=== PATIENT | male | born 1960 | race Hispanic/Latino ===

== ENCOUNTER 2017-03-01 20:58 | Observation (INO) | payer MEDICARE ==
[2017-03-01 21:08] VITALS: BMI 35.2
--- NOTE | 2017-03-01 21:32 | ED PDOC ---
Arrival/HPI <Bc Dill - Last Filed: 03/01/17 21:40> - General Historian: Patient - History of Present Illness Time/Duration: 1-3 hours Symptom Onset: Gradual Symptom Course: Unchanged Quality: Tightness Severity Level: Moderate Activities at Onset: Rest Context: Sitting <Tyler Centeno - Last Filed: 03/02/17 05:41> - General Chief Complaint: Chest Pain Time Seen by Provider: 03/01/17 21:00 - History of Present Illness Narrative History of Present Illness (Text): 03/01/17 21:28 This is a 56 yo male with past medical hx of GERD, sleep apnea, HLD , seizures, REM sleep disorder, presenting with chest pain x 2 hrs. Pain began while pt was sitting down watching tv. Has happened similar before, but this is worse. Came on gradually. Diffuse chest pain, no radiation. Feels like "tightness." Reports subjective fever and headache. Never had cardiac cath but reports normal nuclear stress test a few years ago. Constant pain. Didn't take any meds at home for it. Denies shortness of breath, abdominal pain, hematuria, blood in stool. PMH: sleep apnea , seizures, HLD, gerd PSH: nasal sx for sleep apnea Allergies: NSAIDS FH: Father - [place] - - age 88 Social hx : denies smoking, drinking, drug use. Does not work. (Tyler Centeno) Past Medical History - Provider Review Nursing Documentation Reviewed: Yes - Travel History Have you recently traveled outside [place] w/in the past 3 mons?: No - Infectious Disease Hx of Infectious Diseases: None - Tetanus Immunization Tetanus Immunization: Up to Date - Cardiac Hx Cardiac Disorders: No Hx Pacemaker: No - Pulmonary Hx Respiratory Disorders: No Hx Asthma: Yes Hx Bronchitis: No Hx Chronic Obstructive Pulmonary Disease (COPD): No Hx Emphysema: No Hx Pneumonia: No Hx Respiratory Aspiration: No Hx Respiratory Tract Infection: No Hx Sleep Apnea: Yes Hx Tuberculosis: No - Neurological Hx Paralysis: No - HEENT Hx HEENT Disorder: Yes Hx Blind: No Hx Cataracts: No Hx Deafness: No Hx Difficulty Chewing: No Hx Epistaxis: No Hx Glaucoma: No Hx Macular Degeneration: No Other/Comment: Inner ear vestibular disfunction - Renal Hx Renal Disorder: No Hx Dialysis: No Hx Kidney Stones: No Hx Neurogenic Bladder: No Hx Pyelonephritis: No Hx Renal Cancer: No Hx Renal Failure: No - Endocrine/Metabolic Hx Endocrine Disorders: No Hx Adrenal Cancer: No Hx Diabetes Insipidus: No Hx Diabetes Mellitus Type 1: No Hx Diabetes Mellitus Type 2: No Hx Hyperthyroidism: No Hx Hypothyroidism: No Hx Systemic Lupus Erythematosus: No - Hematological/Oncological Hx Blood Transfusions: No Hx Blood Transfusion Reaction: No - Integumentary Hx Dermatological Disorder: No Hx Basal Cell Carcinoma: No Hx Eczema: No Hx Melanoma: No Hx Psoriasis: No Hx Squamous Cell Carcinoma: No - Musculoskeletal/Rheumatological Hx Musculoskeletal Disorders: Yes - Gastrointestinal Hx Gastrointestinal Disorders: Yes Hx Colostomy: No Hx Crohn's Disease: No Hx Diverticulitis: No Hx Gall Bladder Disease: No Hx Gastroesophageal Reflux: Yes Hx Gastrointestinal Ulcer: No Hx Ileostomy: No Hx Liver Failure: No Hx Pancreatitis: No HX Swallowing Problems: No - Genitourinary/Gynecological Hx Hematuria: No Hx Incontinence: No Hx Prostate Problems: No Hx Sexually Transmitted Diseases: No Hx Urinary Tract Infection: No Other/Comment: L testicular surgery; staph infection s/p surgery - Psychiatric Hx Anxiety: Yes Hx Depression: Yes Hx Emotional Abuse: No Hx Physical Abuse: No Hx Substance Use: No Other/Comment: OCD - Surgical History Other/Comment: L testicular surgery. Nasal surgery for sleep apnea - Anesthesia Hx Anesthesia: Yes Hx Anesthesia Reactions: No Hx Malignant Hyperthermia: No - Suicidal Assessment Feels Threatened In Home Enviroment: No <Tyler Centeno - Last Filed: 03/02/17 05:41> Family/Social History - Physician Review Nursing Documentation Reviewed: Yes Family/Social History: CAD/OH Smoking Status: Never Smoked Hx Alcohol Use: No Hx Substance Use: No Hx Substance Use Treatment: No <Tyler Centeno - Last Filed: 03/02/17 05:41> Allergies/Home Meds <Bc Dill - Last Filed: 03/01/17 21:40> <Tyler Centeno - Last Filed: 03/02/17 05:41> Allergies/Adverse Reactions: Allergies ibuprofen [From Motrin] Allergy (Verified 03/01/17 21:09) RASH Penicillins Allergy (Verified 03/01/17 21:09) SWELLING amoxapine Adverse Reaction (Verified 03/01/17 21:09) ANAPHYLAXIS Home Medications: Home Meds Medication Instructions Recorded Confirmed Clonazepam [Klonopin] 1 tab PO HS 03/01/17 03/01/17 Fluoxetine HCl [Prozac] 2 cap PO DAILY 03/01/17 03/01/17 Fluticasone/Vilanterol [Breo 1 puff IH DAILY 03/01/17 03/01/17 Ellipta 200-25 Mcg INH] Gabapentin [Neurontin] 1 tab PO BID 03/01/17 03/01/17 Lubiprostone [Amitiza] 1 tab PO BID 03/01/17 03/01/17 Montelukast [Singulair] 1 tab PO HS 03/01/17 03/01/17 Multivit-Min/FA/Lycopen/Lutein 1 tab PO DAILY 03/01/17 03/01/17 [Men 50 Plus Multivitamin Tab] Xrpoc-3-Lbea Ethyl Esters 1 GM 4 cap PO DAILY 03/01/17 03/01/17 [Lovaza] Ranitidine HCl [Zantac] 1 tab PO BID 03/01/17 03/01/17 clomiPRAMINE [Anafranil] 50 mg PO HS 03/01/17 03/01/17 clonazePAM [Klonopin] 1 tab PO DAILY 03/01/17 03/01/17 levETIRAcetam [Keppra] 1 tab PO BID 03/01/17 03/01/17 Review of Systems - Review of Systems Constitutional: Fevers Eyes: absent: Vision Changes, Photophobia ENT: absent: Hearing Changes, Tinnitus Respiratory: absent: SOB, Cough Cardiovascular: Chest Pain. absent: Palpitations Gastrointestinal: absent: Abdominal Pain, Stool Changes Genitourinary Male: absent: Dysuria, Frequency Musculoskeletal: absent: Arthralgias, Back Pain Skin: absent: Rash, Pruritis Neurological: Headache. absent: Dizziness Endocrine: absent: Diaphoresis, Polyuria Hemo/Lymphatic: absent: Adenopathy, Easy Bleeding Psychiatric: absent: Anxiety, Depression <Tyler Centeno - Last Filed: 03/02/17 05:41> Physical Exam Vital Signs Reviewed: Yes Appearance: Positive for: Uncomfortable Mental Status: Positive for: Alert and Oriented X 3 - Systems Exam Head: Present: Atraumatic, Normocephalic Pupils: Present: PERRL Extroacular Muscles: Present: EOMI Mouth: Present: Moist Mucous Membranes Neck: Present: Normal Range of Motion. No: Meningeal Signs Respiratory/Chest: Present: Clear to Auscultation. No: Respiratory Distress Cardiovascular: Present: Normal S1, S2, Tachycardic Abdomen: Present: Normal Bowel Sounds. No: Tenderness, Peritoneal Signs Upper Extremity: Present: Normal Inspection. No: Cyanosis, Edema Lower Extremity: Present: Normal Inspection. No: Edema Neurological: Present: CN II-XII Intact, Speech Normal Skin: Present: Warm, Dry Psychiatric: Present: Alert, Oriented x 3, Normal Insight, Normal Concentration <Tyler Centeno - Last Filed: 03/02/17 05:41> Vital Signs Temp Pulse Pulse Pulse Resp BP BP 03/02/17 01:44 98.9 F 103 H 106 H 20 116/73 03/02/17 01:39 98.9 F 103 H 20 116/73 03/01/17 23:03 99.7 F H 117 H 18 104/69 03/01/17 21:14 103.1 F H 03/01/17 21:10 124 H 142/112 H 03/01/17 21:09 99.3 F 127 H 18 142/112 H Pulse Ox 03/02/17 01:44 03/02/17 01:39 93 L 03/01/17 23:03 96 03/01/17 21:14 03/01/17 21:10 03/01/17 21:09 90 L Medical Decision Making - Lab Interpretations I have reviewed the lab results: Yes - EKG Interpretation Interpreted by ED Physician: Yes Type: 12 lead EKG <Bc Dill - Last Filed: 03/01/17 21:40> <Tyler Centeno - Last Filed: 03/02/17 05:41> ED Course and Treatment: Impression: Pt was seen and evaluated with medical aide. Pt, whose past medical history includes GERD, sleep apnea, hyperlipidemia, and seizures, presented for diffuse chest tightness with subjective fever and headache while at home watching TV. Aware and agree with HPI, clinical findings, plan, and management. Plan: -- EKG -- Chest X-ray -- Labs, VBG, troponin, blood cultures -- Rapid influenza -- UA, urine cultures -- Plavix -- Reassess and disposition (Bc Dill) - Lab Interpretations Lab Results: 03/01/17 21:25 03/01/17 21:25 Lab Results 03/01/17 22:45: Urine Opiates Screen Negative, Urine Methadone Screen Negative, Ur Barbiturates Screen Negative, Ur Phencyclidine Scrn Negative, Ur Amphetamines Screen Negative, U Benzodiazepines Scrn Negative, U Oth Cocaine Metabols Negative, U Cannabinoids Screen Negative 03/01/17 22:40: Urine Color Yellow, Urine Appearance Clear, Urine pH 7.5, Ur Specific [place] 1.010, Urine Protein Negative, Urine Glucose (UA) Negative, Urine Ketones 15 H, Urine Blood Small H, Urine Nitrate Negative, Urine Bilirubin Negative, Urine Urobilinogen 0.2, Ur Leukocyte Esterase Negative, Urine RBC 5 - 10, Urine WBC 0 - 2, Ur Epithelial Cells 0 - 2, Urine Bacteria Rare 03/01/17 21:45: Influenza Typ A,B (EIA) Negative for flu a/b 03/01/17 21:25: pO2 73 H, VBG pH 7.45 H, VBG pCO2 41.0, VBG HCO3 28.5 H, VBG Total CO2 29.8 H, VBG O2 Sat (Calc) 97.0 H, VBG Base Excess 4.1 H, VBG Potassium 3.8, Sodium 134.0, Chloride 98.0, Glucose 134 H, Lactate 1.0, FiO2 21.0, Venous Blood Potassium 3.8 03/01/17 21:25: Sodium 134, Chloride 97 L, Potassium 3.8, Carbon Dioxide 29, Anion Gap 12, BUN 10, Creatinine 0.9, Est GFR ( Amer) > 60, Est GFR (Non- Af Amer) > 60, Random Glucose 130 H, Calcium 9.1, Total Bilirubin 1.1, AST 34, ALT 44, Alkaline Phosphatase 91, Troponin I < 0.01, Total Protein 7.6, Albumin 4.3, Globulin 3.3, Albumin/Globulin Ratio 1.3 03/01/17 21:25: WBC 7.8 D, RBC 4.33, Hgb 13.7 L, Hct 39.6 L, MCV 91.5, MCH 31.6 , MCHC 34.6, RDW 13.1, Plt Count 183, MPV 9.2, Gran % 82.4 H, Lymph % (Auto) 9.2 L, [place] % (Auto) 7.9 H, Eos % (Auto) 0.4 L, Baso % (Auto) 0.1, Gran # 6.45, Lymph # 0.7 L, [place] # 0.6, Eos # 0.0, Baso # 0.01 - RAD Interpretation Radiology Orders: 03/01/17 21:25 CXR [CHEST PORTABLE] [RAD] Stat - Medication Orders Current Medication Orders: Acetaminophen (Tylenol 325mg Tab) 650 mg PO Q4H PRN PRN Reason: Fever >100.5 F Last Admin: 03/02/17 04:56 Dose: 650 mg MAR Pain/Vitals Document 03/02/17 04:56 CO (Rec: 03/02/17 04:57 CO [id number]) Pain Reassessment Is This A Pain ReAssessment? No Presence of Pain Presence of Pain Yes Location Pain Location Body [employer]ing [employer] Discontinued Medications Acetaminophen (Tylenol 325mg Tab) 650 mg PO STAT STA Stop: 03/01/17 21:50 Last Admin: 03/01/17 21:21 Dose: 650 mg Clopidogrel Bisulfate (Plavix) 300 mg PO STAT STA Stop: 03/01/17 21:36 Last Admin: 03/01/17 21:50 Dose: 300 mg Levofloxacin/Dextrose (Levaquin 750mg) 750 mg in 150 mls @ 100 mls/hr IVPB STAT STA PRN Reason: Protocol Stop: 03/02/17 01:44 Last Admin: 03/02/17 00:24 Dose: 100 mls/hr eMAR Start Stop Document 03/02/17 00:24 CNR (Rec: 03/02/17 00:25 CNR [id number]) Intravenous Solution Start Date 03/02/17 Start Time 00:25 Metoclopramide HCl (Reglan) 10 mg IVP STAT STA Stop: 03/01/17 23:06 Last Admin: 03/01/17 23:18 Dose: 10 mg IVP Administration Document 03/01/17 23:18 CNR (Rec: 03/01/17 23:19 CNR [id number]) Charges for Administration # of IVP Administrations 1 Morphine Sulfate (Morphine) 2 mg IVP STAT STA Stop: 03/02/17 01:15 Last Admin: 03/02/17 01:26 Dose: 2 mg MAR Pain Assessment Document 03/02/17 01:26 CNR (Rec: 03/02/17 01:27 CNR [id number]) Pain Reassessment Is this a pain reassessment? Yes IVP Administration Document 03/02/17 01:26 CNR (Rec: 03/02/17 01:27 CNR [id number]) Charges for Administration # of IVP Administrations 1 Disposition/Present on Arrival <Bc Dill - Last Filed: 03/01/17 21:40> - Present on Arrival Any Indicators Present on Arrival: No History of DVT/PE: No History of Uncontrolled Diabetes: No Urinary Catheter: No History of Decub. Ulcer: No History Surgical Site Infection Following: None - Disposition Have Diagnosis and Disposition been Completed?: Yes Disposition Time: 01:00 <Tyler Centeno - Last Filed: 03/02/17 05:41> - Disposition Diagnosis: Chest pain Disposition: HOSPITALIZED Condition: GUARDED
[2017-03-01 21:38] LABS: VENOUS BLOOD GAS BASE EXCESS 4.1 mmol/L (0.0-2.0); VENOUS BLOOD PH 7.45 (7.32-7.43)
[2017-03-01 21:46] LABS: ALB/GLOB RATIO 1.3 (1.1-1.8); ALKALINE PHOSPHATASE 91 U/L (38-126); ALT/SGPT 44 U/L (7-56); AST/SGOT 34 U/L (17-59); BILIRUBIN,TOTAL 1.1 mg/dL (0.2-1.3); BLOOD UREA NITROGEN 10 mg/dL (7-21); CALCIUM 9.1 mg/dL (8.4-10.5); CARBON DIOXIDE 29 mmol/L (21-33); CHLORIDE 97 mmol/L (98-107); GFR AFRICAN-AMERICAN > 60; GLUCOSE,RANDOM 130 mg/dL (70-110); POTASSIUM 3.8 mmol/L (3.6-5.0); SODIUM 134 mmol/L (132-148); TOTAL PROTEIN 7.6 g/dL (5.8-8.3)
[2017-03-01 21:57] LABS: TROPONIN I < 0.01 ng/mL
[2017-03-01 22:09] LABS: BASO # 0.01 K/mm3 (0.0-2.0); BASO % 0.1 % (0.0-3.0); EOS % 0.4 % (1.5-5.0); GRAN # 6.45 (1.4-6.5); GRAN % 82.4 % (50.0-68.0); HEMATOCRIT 39.6 % (42.0-52.0); LYMPH # 0.7 (1.2-3.4); LYMPH % 9.2 % (22.0-35.0); MEAN CELL VOLUME 91.5 fl (80.0-105.0); MEAN CORPUSCULAR HEMOGLOBIN 31.6 pg (25.0-35.0); MEAN CORPUSCULAR HGB CONC 34.6 g/dl (31.0-37.0); MEAN PLATELET VOLUME 9.2 fl (7.0-11.0); MONO # 0.6 (0.1-0.6); MONO % 7.9 % (1.0-6.0); RED CELL DISTRIBUTION WIDTH 13.1 % (11.5-14.5); WHITE BLOOD COUNT 7.8 10^3/ul (4.5-11.0)
[2017-03-01 23:20] LABS: PH,URINE 7.5 (4.7-8.0); URINE BILIRUBIN NEGATIVE (NEGATIVE); URINE BLOOD SMALL (NEGATIVE); URINE GLUCOSE (UA) NEGATIVE (NEGATIVE); URINE KETONE 15 mg/dL (NEGATIVE); URINE LEUKOCYTE ESTERASE NEGATIVE Leu/uL (NEGATIVE); URINE PROTEIN NEGATIVE mg/dL (<30 mg/dL); URINE UROBILINOGEN 0.2 E.U./dL (<1 E.U./dL)
[2017-03-01 23:28] LABS: URINE APPEARANCE CLEAR (CLEAR); URINE COLOR YELLOW (YELLOW)
[2017-03-02] MEDS ORDERED: levoFLOXacin 750 mg in D5W 750 MG/150 ML BAG IVPB STA (00:15)
[2017-03-02 00:24] LABS: URINE EPITHELIAL CELLS 0 - 2 /hpf (0-5); URINE WBC 0 - 2 /hpf (0-6)
[2017-03-02 00:25] LABS: URINE BACTERIA RARE (NEG)
[2017-03-02] MEDS ORDERED: Morphine 2 mg/ml ISec IVP STA (01:14)
[2017-03-02 08:39] LABS: CHOLESTEROL 170 mg/dL (130-200)
[2017-03-02 08:53] LABS: TROPONIN I < 0.01 ng/mL
--- NOTE | 2017-03-02 09:18 | CARD ---
APPROVED REPORT EKG Measurement Heart [id number] <Conclusion> Sinus tachycardia NSSTW changes
--- NOTE | 2017-03-02 09:40 | CARD ---
APPROVED REPORT EKG Measurement Heart [id number] <Conclusion> Sinus tachycardia NSSTW changes No change except the rate is slower.
[2017-03-02] MEDS ORDERED: FLUOXETINE HCL PO SCH (10:00)
[2017-03-02] MEDS ORDERED: LUBIPROSTONE 24 MCG PO SCH (10:00)
[2017-03-02] MEDS ORDERED: LUBIPROSTONE PO SCH (10:00)
[2017-03-02] MEDS ORDERED: Non Formulary Medication (Ranitidine Hcl [Zantac] 1 TAB) PO SCH (10:00)
--- NOTE | 2017-03-02 10:15 | RAD ---
HISTORY: chest pain COMPARISON: 09/18/2016 FINDINGS: LUNGS: No active pulmonary disease. PLEURA: No significant pleural effusion identified, no pneumothorax apparent. CARDIOVASCULAR: Normal. OSSEOUS STRUCTURES: No significant abnormalities. VISUALIZED UPPER ABDOMEN: Normal. OTHER FINDINGS: None. IMPRESSION: No active disease.
[2017-03-02] MEDS: Omega-3-Acid Ethyl Esters 1 GM Cap PO SCH (10:21)
[2017-03-02] MEDS: LUBIPROSTONE 24 MCG PO SCH ×2 (10:23→17:36)
[2017-03-02] MEDS: Apap-Butalbital-Caffeine 325-50-40mg Tab PO PRN ×2 (10:43→17:39)
[2017-03-02] MEDS: Metoprolol Succinate 25 mg XL Tab PO SCH (10:44)
[2017-03-02 11:46] VITALS: RESP 20
--- NOTE | 2017-03-02 18:53 | CON ---
DATE: 03/02/2017 INDICATION: Chest pain. HISTORY OF PRESENT ILLNESS: This is a 56-year-old man admitted yesterday through the emergency room with chest pain described as a tight feeling across the chest intermittently. It became worse during the day and he went to the emergency room. There was no associated diaphoresis or shortness of breath, it did not radiate. There was no orthopnea, PND, syncope, presyncope, lightheadedness, dizziness, vertigo, palpitation, edema, or claudication. There was no fever, chills, cough, sputum production, hemoptysis, abdominal pain, nausea, vomiting, diarrhea, constipation, or melena. PAST MEDICAL HISTORY: Notable for nuclear stress test several years ago, which was unremarkable according to him. There is a history of hyperlipidemia, GERD, OCD, sleep apnea, and seizure disorder. There is no history of rheumatic fever, myocardial infarction, angina, arrhythmia, stroke, TIA, diabetes, or gout. MEDICATIONS: At the time of admission include Klonopin, Prozac, Breo Ellipta, gabapentin, Amitiza, Singulair, Lovaza, multivitamin, Zantac, Anafranil, and Keppra. ALLERGIES: HE NOTES ALLERGIES TO NSAIDS. SOCIAL HISTORY: He lives at home. He is unemployed. He is ambulatory. He does not smoke. He does not drink alcohol significantly. FAMILY HISTORY: Notable for heart disease and heart attack in his father. REVIEW OF SYSTEMS: A 10-point review of systems is otherwise unremarkable except as noted above. PHYSICAL EXAMINATION GENERAL: He is a well-developed male, lying in bed on Telemetry in no acute distress. VITAL SIGNS: He is in sinus rhythm and sinus tachycardia. He is afebrile currently, but he had a temperature of 103.1 initially, blood pressure 118/57, respirations 18-20, and O2 saturation 90-95% on nasal cannula. HEENT: Reveals no neck vein distention, thyromegaly, or carotid bruits. Mucous membranes moist. Conjunctivae pink. NECK: Supple. LUNGS: Bernal clear. HEART: Reveals normal first and second heart sounds without murmur, gallop, rub, or click. ABDOMEN: Soft. Bowel sounds present. No mass, organomegaly, tenderness, rebound or guarding. No CVA tenderness. No palpable abdominal aortic aneurysm. EXTREMITIES: Revealed no cyanosis, clubbing or edema. NEUROLOGIC: Awake, alert, and oriented. PSYCHIATRIC: Normal as to mood and affect. SKIN: Warm and dry. No rashes or cellulitis. LABORATORY AND IMAGING: A portable chest x-ray was done, it is not interpreted yet, to me it is an unremarkable study except that there is a possible infiltrate at the left base, possible pneumonia. No evidence of congestive heart failure. EKG revealed sinus tachycardia. No acute changes. White count is normal. Hemoglobin 13.7, hematocrit 39.6, and platelet count normal. Blood gases are noted. Electrolytes, BUN, creatinine and blood sugar are unremarkable. LFTs unremarkable. First troponin less than 0.01. Urinalysis is abnormal. Toxicology screen is unremarkable. Influenza is negative. ASSESSMENT: Michel Lockhart is a 56-year-old man with multiple medical problems as described, who presents with a tight chest discomfort without EKG changes or abnormality on his initial troponin. The symptoms have subsided. He has a history of a negative stress test, possibly a few years ago, but he is not sure of the date. PLAN: At this time, I will repeat his EKG and troponin level this morning. I will get a lipid profile. He will continue with his usual medication. I will get an echocardiogram. He can be out of bed. I will attempt to locate a prior stress test for review. If cardiac enzymes are negative and he has no further chest pain, we can arrange an outpatient nuclear stress test for him; if chest pain continues, we can do this on an inpatient basis. Given his fever and potential abnormal chest x-ray, he will get antibiotics. He has been cultured. Repeat chest x-ray or CT scan of the chest might be indicated. Aftab Grover MD [facility]
--- NOTE | 2017-03-02 19:23 | HP ---
HISTORY OF PRESENT ILLNESS: The patient is a 56-year-old, seen and examined. He states last night when he was watching TV, he has generalized body aches and pains, chest pain, chest pressure, and headache. Denies any fever or chills. No history of cough or congestion. No nausea or vomiting. No diarrhea. The chest pain was diffuse with no radiation to the neck or the arm, it did feel like tightness. PAST MEDICAL HISTORY: 1. He does have a history of sleep apnea. 2. Gastroesophageal reflux disease. 3. History of seizure disorder. 4. Obsessive-compulsive disorder. ALLERGIES: HE IS ALLERGIC TO IBUPROFEN, PENICILLIN, AND AMOXAPINE. MEDICATIONS AT HOME: He is on Anafranil 50 mg daily, Keppra 500 twice a day, and Klonopin 1 mg b.i.d.. He is on Amitiza, gabapentin 600 b.i.d., Pepcid 20 mg twice a day, Prozac 80 mg daily, Singulair 10 mg daily, and acetaminophen. SOCIAL HISTORY: Denies smoking, drinking, or alcohol use. He states he is disabled for the last 10 years. 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 REVIEW OF SYSTEMS: Significant for headache and generalized body aches and pain and some chest pressure. PHYSICAL EXAMINATION: VITAL SIGNS: He is afebrile, pulse 101, respirations 18, and blood pressure 118/57. LUNGS: Bilateral good airflow. No rhonchi or crackles. HEART: S1 and S2 audible. ABDOMEN: Soft and nontender. No rebound. No guarding. NEUROLOGIC: The patient is awake, alert, oriented, and communicative. Moves all extremities. EXTREMITIES: Bilateral legs, no edema. LABORATORY DATA: WBC is 7.8, hemoglobin is 13.7, hematocrit is 39.6, and platelets are 183. Chemistry; sodium 134, potassium 3.8, chloride 97, CO2 of 29, BUN 10, creatinine 0.9, and blood sugar of 130. Urinalysis shows small blood and ketones. Urine toxicology is negative. Serology is negative for influenza virus. ASSESSMENT: 1. Atypical chest pain. 2. Generalized body aches and pains. 3. Sinus tachycardia. 4. History of hypertension. 5. Obsessive-compulsive disorder. 6. Headache. 7. History of seizure disorder. PLAN: We will follow up cardiac enzyme. Check procalcitonin. Follow blood culture and urine culture and add small dose of metoprolol. If he remains stable, possible discharge in a.m. Dr. Grover to see the patient. Wero Barriga MD
[2017-03-02] MEDS ORDERED: CLOMIPRAMINE 50 MG PO SCH ×2 (22:00)
[2017-03-03 00:55] VITALS: O2SAT 94
[2017-03-03] MEDS: Metoprolol Succinate 25 mg XL Tab PO SCH (08:17)
--- NOTE | 2017-03-03 08:35 | CP.PCM.PN ---
Subjective - Date & Time of Evaluation Date of Evaluation: 03/03/17 Time of Evaluation: 07:00 - Subjective Subjective: Stable on 2R. No chest pain. He feels better now. V/S noted. RSR PE: Lungs: clear Cor.: S1S2 Abd.; soft Ext. no edema Neuro.; alert Labs noted: Trops neg x 3, Procal.: NL, TC = 170, LDL = 68 ECG S. Tachy, NSSTW changes, no change Objective - Vital Signs/Intake and Output Vital Signs (last 24 hours): Temp Pulse Resp BP Pulse Ox 97.8 F 101 H 20 120/72 94 L 03/03/17 06:00 03/03/17 08:17 03/03/17 06:00 03/03/17 08:17 03/03/17 06:00 Intake and Output: 03/03/17 03/03/17 06:59 18:59 Intake Total 120 Output Total 0 Balance 120 - Medications Medications: Current Medications Acetaminophen (Tylenol 325mg Tab) 650 mg PO Q4H PRN PRN Reason: Fever >100.5 F Last Admin: 03/02/17 10:24 Dose: 650 mg Acetaminophen/Butalbital/Caffeine (Fioricet) 1 tab PO Q4H PRN PRN Reason: headache Last Admin: 03/02/17 17:39 Dose: 1 tab Clonazepam (Klonopin) 1 mg PO DAILY [facility] PRN Reason: Protocol Last Admin: 03/02/17 10:23 Dose: 1 mg Famotidine (Pepcid) 20 mg PO BID [facility] Last Admin: 03/02/17 17:36 Dose: 20 mg Fluoxetine HCl (Prozac) 80 mg PO DAILY [facility] Last Admin: 03/02/17 10:22 Dose: 80 mg Gabapentin (Neurontin) 600 mg PO BID [facility] PRN Reason: Protocol Last Admin: 03/02/17 17:36 Dose: 600 mg Levetiracetam (Keppra) 500 mg PO BID [facility] Last Admin: 03/02/17 17:35 Dose: 500 mg Metoprolol Succinate (Toprol Xl) 25 mg PO BRK [facility] Last Admin: 03/03/17 08:17 Dose: 25 mg Montelukast Sodium (Singulair) 10 mg PO HS [facility] Last Admin: 11/26/17 21:16 Dose: 10 mg Clomipramine [ Anafranil] 50 Mg - Home Med 50 mg PO HS [facility] Last Admin: 03/02/17 21:17 Dose: 50 mg Lubiprostone [ Amitiza] 24mcg - Home Med 1 tab PO BID [facility] Last Admin: 03/02/17 17:36 Dose: 1 tab [id number] Ethyl Esters (Lovaza) 4 gm PO DAILY [facility] Last Admin: 03/02/17 10:21 Dose: 4 gm Assessment and Plan - Assessment and Plan (Free Text) Assessment: Chest Pain/Body Aches. Fever Seizure disorder OCD GERD RUI H/O HLD Plan: OOB ad ariel Echocardiogram Out-pt nuclear stress test to be arranged. As per Dr. Faye Upon D/C he will call if sxs recur.
--- NOTE | 2017-03-03 10:01 | PN ---
HISTORY OF PRESENT ILLNESS: This is a 56-year-old male who is had come into the hospital with complaints of chest pain. The patient was seen by Cardiology. He had cardiac enzymes x3 that were done which were negative. The patient has an echo that is pending. He was cleared for discharge by Cardiology for an outpatient stress. We will await echo to be done and then the patient is going to be discharged and followed up as an outpatient. The patient has no complaints of any headaches or dizziness. No chest pain. PHYSICAL EXAMINATION: VITAL SIGNS: Temperature is 97.8, pulse of 87, blood pressure 119/72, respirations 20. GENERAL: The patient is lying in bed, flat, comfortable. HEENT: No oral lesion. Anicteric sclerae. Moist mucosa. NECK: No JVD, adenopathy, or thyromegaly. CARDIOVASCULAR: S1 and S2, regular. No murmurs, rubs, or gallops. LUNGS: Clear to auscultation bilaterally. No wheeze, rales, or rhonchi. ABDOMEN: Bowel sounds are positive, soft, nontender and nondistended. EXTREMITIES: No cyanosis, clubbing or edema. LABORATORY DATA: His blood cultures x2 is negative. ASSESSMENT: 1. Chest pain, resolved. 2. Fever, resolved. 3. Seizure disorder. 4. Gastroesophageal reflux disease. 5. Obese with body mass index of 35. 6. PENICILLIN ALLERGY. 7. Obsessive-compulsive disorder. 8. Sleep apnea. PLAN: The patient is currently comfortable. He is on Klonopin. He is going to continue with his Keppra. The patient is on Neurontin for neuropathy. He was given one dose of Levaquin. His cultures have been negative. He has no fevers anymore. I suspect this may have been viral in origin. His chest x-ray that was done showed no signs of pneumonia or infiltrates. We will discharge the patient home as an outpatient for followup. He was advised to return to the hospital if his symptoms recur. CONDITION: Stable. ACTIVITIES: Increase as tolerated. John Faye MD
[2017-03-03] MEDS: Omega-3-Acid Ethyl Esters 1 GM Cap PO SCH (10:12)
[2017-03-03] MEDS: LUBIPROSTONE 24 MCG PO SCH (11:40)
[2017-03-03 12:21] VITALS: BP 108/77; PULSE 91; TEMP 97.9
--- NOTE | 2017-03-04 09:55 | CARD ---
APPROVED REPORT EXAM: Two-dimensional and M-mode echocardiogram with Doppler and color Doppler. INDICATION Chest Pain 2D DIMENSIONS IVSd1.0 (0.7-1.1cm)LVDd5.0 (3.9-5.9cm) PWd1.1 (0.7-1.1cm)LVDs3.4 (2.5-4.0cm) FS (%) 31.7 %LVEF (%)59.6 (>50%) M-Mode DIMENSIONS Aortic Root3.90 (2.2-3.7cm)Aortic Cusp Exc.2.10 (1.5-2.0cm) Aortic Valve AoV Peak Dugwqnpo006.0cm/Brandon Peak GR.8mmHg Mitral Valve MV E Pnoyrndx84.2cm/sMV A Jovgcfhl56.6cm/sE/A ratio0.9 TDI Lateral E' Peak V5.75cm/sMedial E' Peak V6.92cm/sE/Lateral E'10.8 E/Medial E'9.0 Pulmonary Valve PV Peak Bnnjbmwv23.4cm/sPV Peak Grad.3mmHg Tricuspid Valve TR Peak Rgltapnp147va/sRAP [id number] Peak Gr.28mmHg [id number]
== END 2017-03-03 13:42 | disposition home or self-care (01) ==
LOC: ED 20:58 → ERH 03-02 00:13 → 2RSO 03-02 02:14
PROVIDERS: ADMIT Internal Medicine Nephrology; ATTEND Internal Medicine Nephrology
DX: R07.89 Other chest pain (principal); R50.9 Fever, unspecified; G40.909 Epilepsy, unspecified, not intractable, without status epilepticus; G62.9 Polyneuropathy, unspecified; K21.9 Gastro-esophageal reflux disease without esophagitis; F42.9 Obsessive-compulsive disorder, unspecified; G47.33 Obstructive sleep apnea (adult) (pediatric); E78.5 Hyperlipidemia, unspecified; R51 Headache; R00.0 Tachycardia, unspecified; E66.9 Obesity, unspecified; Z68.35 Body mass index [BMI] 35.0-35.9, adult; Z88.0 Allergy status to penicillin; Z88.6 Allergy status to analgesic agent
CPT/HCPCS: 36415; 71010; 80053; 80061; 81001; 82803; 84145; 84484; 85025; 87040; 87086; 87804; 93005; 93306; 96374; 99285; G0378; G0480; J2270; J2765

== ENCOUNTER 2017-03-15 11:53 | Emergency (ER) | payer MEDICARE ==
[2017-03-15 11:53] VITALS: BMI 35.2
[2017-03-15 12:03] VITALS: TEMP 97.7
[2017-03-15 12:06] VITALS: RESP 18; O2SAT 98
[2017-03-15] MEDS ORDERED: TraMADol/Apap 37.5/325 mg Tab PO STA (12:18)
--- NOTE | 2017-03-15 12:18 | ED PDOC ---
Arrival/HPI - General Chief Complaint: Lower Extremity Problem/Injury Time Seen by Provider: 03/15/17 12:16 Historian: Patient - History of Present Illness Narrative History of Present Illness (Text): 03/15/17 12:18 This 56 yo male with past medical hx of GERD, Gout, sleep apnea, HLD , seizures , REM sleep disorder, presents to this ED c/o left knee pain and left lateral lower leg pain x 6 days. Patient denies trauma, skin rash, heavy lifting, recent travel, recent surgical procedure, weakness, paresthesias, or abnormal gait. Time/Duration: < week Quality: Aching Context: Home Past Medical History - Provider Review Nursing Documentation Reviewed: Yes - Infectious Disease Hx of Infectious Diseases: None - Tetanus Immunization Tetanus Immunization: Up to Date - Cardiac Hx Cardiac Disorders: No Hx Pacemaker: No - Pulmonary Hx Respiratory Disorders: No Hx Asthma: Yes Hx Bronchitis: No Hx Chronic Obstructive Pulmonary Disease (COPD): No Hx Emphysema: No Hx Pneumonia: No Hx Respiratory Aspiration: No Hx Respiratory Tract Infection: No Hx Sleep Apnea: Yes Hx Tuberculosis: No - Neurological Hx Paralysis: No - HEENT Hx HEENT Disorder: Yes Other/Comment: Inner ear vestibular disfunction - Renal Hx Renal Disorder: No - Endocrine/Metabolic Hx Endocrine Disorders: No - Hematological/Oncological Hx Blood Disorders: No - Integumentary Hx Dermatological Disorder: No - Musculoskeletal/Rheumatological Hx Musculoskeletal Disorders: Yes Hx Arthritis: Yes - Gastrointestinal Hx Gastrointestinal Disorders: Yes Hx Gastroesophageal Reflux: Yes - Genitourinary/Gynecological Hx Genitourinary Disorders: Yes Hx Hematuria: No Hx Incontinence: No Hx Prostate Problems: No Hx Sexually Transmitted Diseases: No Hx Urinary Tract Infection: No Other/Comment: L testicular surgery; staph infection s/p surgery - Psychiatric Hx Anxiety: Yes Hx Depression: Yes Hx Emotional Abuse: No Hx Physical Abuse: No Hx Substance Use: No Other/Comment: OCD - Surgical History Other/Comment: L testicular surgery. Nasal surgery for sleep apnea - Anesthesia Hx Anesthesia: Yes - Suicidal Assessment Feels Threatened In Home Enviroment: No Family/Social History - Physician Review Nursing Documentation Reviewed: Yes Family/Social History: Other (noncontributory) Smoking Status: Never Smoked Hx Alcohol Use: No Hx Substance Use: No Hx Substance Use Treatment: No Allergies/Home Meds Allergies/Adverse Reactions: Allergies ibuprofen [From Motrin] Allergy (Verified 03/15/17 11:55) RASH Penicillins Allergy (Verified 03/15/17 11:55) SWELLING amoxapine Adverse Reaction (Verified 03/15/17 11:55) ANAPHYLAXIS Home Medications: Home Meds Medication Instructions Recorded Confirmed Clonazepam [Klonopin] 1 tab PO HS 03/01/17 03/15/17 Fluoxetine HCl [Prozac] 2 cap PO DAILY 03/01/17 03/15/17 Fluticasone/Vilanterol [Breo 1 puff IH DAILY 03/01/17 03/15/17 Ellipta 200-25 Mcg INH] Gabapentin [Neurontin] 1 tab PO BID 03/01/17 03/15/17 Lubiprostone [Amitiza] 1 tab PO BID 03/01/17 03/15/17 Multivit-Min/FA/Lycopen/Lutein 1 tab PO DAILY 03/01/17 03/15/17 [Men 50 Plus Multivitamin Tab] [id number] Ethyl Esters 1 GM 4 cap PO DAILY 03/01/17 03/15/17 [Lovaza] Ranitidine HCl [Zantac] 1 tab PO BID 03/01/17 03/15/17 clomiPRAMINE [Anafranil] 50 mg PO HS 03/01/17 03/15/17 clonazePAM [Klonopin] 1 tab PO DAILY 03/01/17 03/15/17 levETIRAcetam [Keppra] 1 tab PO BID 03/01/17 03/15/17 Levocetirizine Dihydrochloride 1 tab PO DAILY 03/15/17 03/15/17 [Xyzal] Tamsulosin [Flomax] 1 cap PO DAILY 03/15/17 03/15/17 Review of Systems - Review of Systems Constitutional: Normal. absent: Fatigue, Weight Change, Fevers Eyes: Normal ENT: Normal Respiratory: Normal. absent: SOB, Cough Cardiovascular: Normal. absent: Chest Pain, Palpitations Gastrointestinal: Normal. absent: Abdominal Pain, Nausea, Vomiting Genitourinary Male: Normal Musculoskeletal: Other (left knee and left lower leg pain) Skin: Normal. absent: Rash, Pruritis, Skin Lesions, Abscess, Ulcer, Cellulitis Neurological: Normal Endocrine: Normal Hemo/Lymphatic: Normal Psychiatric: Normal Physical Exam Vital Signs Temp Pulse Resp BP Pulse Ox 03/15/17 13:16 93 H 18 125/79 98 03/15/17 12:05 97.7 F 102 H 18 127/86 98 03/15/17 11:57 97.7 F 102 H 16 127/86 96 Temperature: Afebrile Blood Pressure: Normal Pulse: Regular Respiratory Rate: Normal Appearance: Positive for: Well-Appearing, Non-Toxic, Comfortable Pain Distress: None Mental Status: Positive for: Alert and Oriented X 3 - Systems Exam Head: Present: Atraumatic, Normocephalic Pupils: Present: PERRL Extroacular Muscles: Present: EOMI Conjunctiva: Present: Normal Mouth: Present: Moist Mucous Membranes Neck: Present: Normal Range of Motion Respiratory/Chest: Present: Clear to Auscultation, Good Air Exchange. No: Respiratory Distress, Accessory Muscle Use, Wheezes, Retracting, Tender to Palpation Cardiovascular: Present: Regular Rate and Rhythm, Normal S1, S2. No: Murmurs Abdomen: No: Tenderness Upper Extremity: Present: Normal Inspection, Normal ROM, NORMAL PULSES Lower Extremity: Present: Edema (trace edema left lower leg), NORMAL PULSES, Normal ROM, Neurovascularly Intact, Capillary Refill < 2 s. No: CALF TENDERNESS , Temperature Abnormalties Neurological: Present: GCS=15, CN II-XII Intact, Speech Normal, Motor Func Grossly Intact, Normal Sensory Function, Normal Cerebellar Funct, Gait Normal Skin: Present: Warm, Dry, Normal Color. No: Rashes Psychiatric: Present: Alert, Oriented x 3, Normal Insight, Normal Concentration Medical Decision Making ED Course and Treatment: 03/15/17 13:25 Patient remained stable during the course of ED visit. Knee x-rays, and Left Lower Extremity Venous Doppler were negative. Physical exam was unremarkable except for left knee swelling and mild tender. Knee is able to flex at least 90 degrees. no septic knee joint, no surrounding erythema, ecchymosis, or skin lesion. Patient stated he has a pmh gout, and he is concern this could be an exacerbation. Patient requested medication for gout and inflammation. I recommended Colchicine, and Decadron. I reviewed with patient regarding the use of Decadron and risk for AVN, glaucoma, osteoporosis, dm. patient understood risk, but he still requested Decadron for inflammation. Cane was ordered. Patient also requested Muscle relaxer medication. Robaxin will be prescribed. Patient was instructed to return to emergency if symptoms worsen, and to avoid alcohol, nuts, prunes, beans, or any type of meat. Re-evaluation Time: 13:25 Reassessment Condition: Re-examined, Improved - RAD Interpretation Narrative RAD Interpretations (Text): 03/15/17 13:31 Knee x-rays: no acute fracture. normal soft tissue 03/15/17 13:32 Venous Doppler: No DVT as per US Radiology Orders: 03/15/17 12:16 DUPLEX LOWER EXTRM VEIN LEFT [US] Stat 03/15/17 12:17 KNEE WITH PATELLA LEFT 3 VIEW [RAD] Stat - Medication Orders Current Medication Orders: Discontinued Medications Tramadol/Acetaminophen (Ultracet 37.5/325 Mg) 1 tab PO STAT STA Stop: 03/15/17 12:19 Last Admin: 03/15/17 12:27 Dose: 1 tab MAR Pain Assessment Document 03/15/17 12:27 GMD (Rec: 03/15/17 12:27 GMD [id number]) Pain Reassessment Is this a pain reassessment? No Sleep Is patient sleeping during reassessment? No Presence of Pain Presence of Pain Yes Location Left, Right or Bilateral Left Upper or Lower Lower Pain Location Body Site Leg Disposition/Present on Arrival - Present on Arrival Any Indicators Present on Arrival: No History of DVT/PE: No History of Uncontrolled Diabetes: No Urinary Catheter: No History of Decub. Ulcer: No History Surgical Site Infection Following: None - Disposition Have Diagnosis and Disposition been Completed?: Yes Diagnosis: Knee pain, left, Swelling of knee joint, left, Gout attack Disposition: HOME/ ROUTINE Disposition Time: 13:32 Patient Plan: Discharge Patient Problems: Current Active Problems Problem Status Onset Gout attack Acute Knee pain, left Acute Swelling of knee joint, left Acute Condition: GOOD Discharge Instructions (ExitCare): Gout (ED), Swollen Knee Joint (ED), Knee Pain (ED) Additional Instructions: Call private doctor for follow up visit in 1-2 days. Take OTC Tylenol for pain as needed. Use cane. remove saw bandage at bedtime. Return to emergency if pain worsen. Call Dr. Moon to have knee recheck in 3-5 days Prescriptions: Methocarbamol [Robaxin-750] 750 mg PO TID #21 tab Referrals: Gary Moreno MD [Primary Care Provider] - Follow up with primary Ariel Moon DO [Staff Provider] - Follow up with primary Forms: [employer] (Welsh)
[2017-03-15 13:16] VITALS: BP 125/79; PULSE 93
--- NOTE | 2017-03-15 14:35 | RAD ---
PROCEDURE: Left Knee Radiographs. HISTORY: Pain. COMPARISON: None. FINDINGS: BONES: Normal. No fracture. JOINTS: Tiny posterior inferior patella osteophyte. JOINT EFFUSION: Small suprapatellar joint effusion. Joint spaces appear preserved OTHER FINDINGS: None. IMPRESSION: No evidence of acute displaced fracture or dislocation. Tiny posterior inferior patellar osteophyte. Small suprapatellar joint effusion.
--- NOTE | 2017-03-17 18:57 | US ---
PROCEDURE: Left lower extremity venous US HISTORY: Leg pain and swelling. Evaluate for DVT. PHYSICIAN(S): Joshua Roland MD. TECHNIQUE: Duplex sonography and color-flow Doppler with graded compression were used to evaluate the deep venous system of the left lower extremity. FINDINGS: The visualized deep venous system of the left lower extremity is sonographically normal and compressible. Normal wave forms and augmentation are seen. There is no sonographic evidence for deep venous thrombosis in the visualized segments of the left lower extremity. IMPRESSION: 1. No sonographic evidence for deep venous thrombosis in the visualized segments of the left lower extremity.
== END 2017-03-15 14:04 | disposition home or self-care (01) ==
LOC: ED 11:53
DX: M25.562 Pain in left knee (principal); M25.462 Effusion, left knee; M10.9 Gout, unspecified; E78.5 Hyperlipidemia, unspecified; Z88.0 Allergy status to penicillin
CPT/HCPCS: 73562; 93971; 96372; 99284; J1100

== ENCOUNTER 2017-08-03 17:48 | Inpatient (IN) | payer MEDICARE, OTHER ==
[2017-08-03 17:48] VITALS: BMI 35.2
[2017-08-03 18:20] VITALS: O2SAT 99
[2017-08-03 19:04] LABS: BASO # 0.02 K/mm3 (0.0-2.0); BASO % 0.3 % (0.0-3.0); EOS # 0.1 (0.0-0.7); EOS % 1.1 % (1.5-5.0); GRAN # 4.63 (1.4-6.5); HEMOGLOBIN 13.5 g/dL (14.0-18.0); LYMPH # 1.3 (1.2-3.4); LYMPH % 20.1 % (22.0-35.0); MEAN CELL VOLUME 88.1 fl (80.0-105.0); MEAN CORPUSCULAR HGB CONC 35.2 g/dl (31.0-37.0); MEAN PLATELET VOLUME 8.8 fl (7.0-11.0); MONO # 0.6 (0.1-0.6); MONO % 8.5 % (1.0-6.0); RBC 4.36 10^6/uL (3.5-6.1); RED CELL DISTRIBUTION WIDTH 13.2 % (11.5-14.5); WHITE BLOOD COUNT 6.6 10^3/ul (4.5-11.0)
[2017-08-03 19:09] LABS: URINE BILIRUBIN NEGATIVE (NEGATIVE); URINE BLOOD NEGATIVE (NEGATIVE); URINE GLUCOSE (UA) NEGATIVE (NEGATIVE); URINE LEUKOCYTE ESTERASE NEGATIVE Leu/uL (NEGATIVE); URINE PROTEIN NEGATIVE mg/dL (<30 mg/dL); URINE UROBILINOGEN 0.2 E.U./dL (<1 E.U./dL)
[2017-08-03 19:10] LABS: URINE APPEARANCE CLEAR (CLEAR); URINE COLOR YELLOW (YELLOW)
[2017-08-03 19:18] LABS: ACETAMINOPHEN < 10.0 ug/ml (10.0-20.0); SALICYLATE < 1 mg/dL (2.0-20.0)
[2017-08-03 19:19] LABS: ALB/GLOB RATIO 1.3 (1.1-1.8); ALBUMIN 4.5 g/dL (3.0-4.8); ALT/SGPT 36 U/L (7-56); AST/SGOT 29 U/L (17-59); BLOOD UREA NITROGEN 11 mg/dL (7-21); CALCIUM 9.2 mg/dL (8.4-10.5); GFR AFRICAN-AMERICAN > 60; GFR NON-AFRICAN AMERICAN > 60
[2017-08-03 19:28] LABS: BENZODIAZEPINES, UR NEGATIVE (NEGATIVE)
[2017-08-03 19:50] LABS: BARBITURATES, UR NEGATIVE (NEGATIVE); OPIATES, UR NEGATIVE (NEGATIVE); PHENCYCLIDINE, UR NEGATIVE (NEGATIVE)
--- NOTE | 2017-08-03 21:36 | ED PDOC ---
Arrival/HPI - General Historian: Patient - General Chief Complaint: Psychiatric Evaluation Time Seen by Provider: 08/03/17 18:24 - History of Present Illness Narrative History of Present Illness (Text): 08/03/17 21:30 57-year-old male with a history of OCD presents today with anxiety and depression. Patient denies suicidal or homicidal ideations. Patient states he has been obsessed with potholes lately. Patient states he is concerned that he could've possibly had someone yesterday because he felt a bump in the car when he was driving. Patient states he went multiple times around the block trying to see if there was anybody laying in the street. Patient states he called the police twice asking if there was any reports of head and runs. Patient denies headache dizziness or weakness. Denies chest pain or shortness of breath. Denies abdominal pain. (Britt Marc) Past Medical History - Provider Review Nursing Documentation Reviewed: Yes - Travel History Have you recently traveled outside [place] w/in the past 3 mons?: No - Infectious Disease Hx of Infectious Diseases: None - Tetanus Immunization Tetanus Immunization: Up to Date - Cardiac Hx Cardiac Disorders: No Hx Pacemaker: No - Pulmonary Hx Respiratory Disorders: No Hx Asthma: Yes Hx Bronchitis: No Hx Chronic Obstructive Pulmonary Disease (COPD): No Hx Emphysema: No Hx Pneumonia: No Hx Respiratory Aspiration: No Hx Respiratory Tract Infection: No Hx Sleep Apnea: Yes Hx Tuberculosis: No - Neurological Hx Paralysis: No - HEENT Hx HEENT Disorder: Yes Other/Comment: Inner ear vestibular disfunction - Renal Hx Renal Disorder: No - Endocrine/Metabolic Hx Endocrine Disorders: No - Hematological/Oncological Hx Blood Disorders: No - Integumentary Hx Dermatological Disorder: No - Musculoskeletal/Rheumatological Hx Musculoskeletal Disorders: Yes Hx Arthritis: Yes - Gastrointestinal Hx Gastrointestinal Disorders: Yes Hx Gastroesophageal Reflux: Yes - Genitourinary/Gynecological Hx Genitourinary Disorders: Yes Hx Hematuria: No Hx Incontinence: No Hx Prostate Problems: No Hx Sexually Transmitted Diseases: No Hx Urinary Tract Infection: No Other/Comment: L testicular surgery; staph infection s/p surgery - Psychiatric Hx Anxiety: Yes Hx Depression: Yes Hx Emotional Abuse: No Hx Physical Abuse: No Hx Substance Use: No Other/Comment: OCD - Surgical History Other/Comment: L testicular surgery. Nasal surgery for sleep apnea - Anesthesia Hx Anesthesia: Yes - Suicidal Assessment Feels Threatened In Home Enviroment: No Family/Social History - Physician Review Nursing Documentation Reviewed: Yes Family/Social History: Unknown Family HX Smoking Status: Never Smoked Hx Alcohol Use: No Hx Substance Use: No Hx Substance Use Treatment: No Allergies/Home Meds Allergies/Adverse Reactions: Allergies ibuprofen [From Motrin] Allergy (Verified 08/04/17 01:08) RASH Penicillins Allergy (Verified 08/04/17 01:08) SWELLING amoxapine Adverse Reaction (Verified 08/04/17 01:08) ANAPHYLAXIS Home Medications: Home Meds Medication Instructions Recorded Confirmed Clonazepam [Klonopin] 1 tab PO HS 03/01/17 08/04/17 Fluoxetine HCl [Prozac] 80 mg PO DAILY 03/01/17 08/04/17 Fluticasone/Vilanterol [Breo 1 puff IH DAILY 03/01/17 08/04/17 Ellipta 200-25 Mcg INH] Gabapentin [Neurontin] 300 mg PO TID 03/01/17 08/04/17 Lubiprostone [Amitiza] 1 tab PO BID 03/01/17 08/04/17 [id number] Ethyl Esters 1 GM 4 cap PO DAILY 03/01/17 08/04/17 [Lovaza] Ranitidine HCl [Zantac] 1 tab PO BID 03/01/17 08/04/17 clomiPRAMINE [Anafranil] 50 mg PO HS 03/01/17 08/04/17 clonazePAM [Klonopin] 1 tab PO DAILY 03/01/17 08/04/17 levETIRAcetam [Keppra] 750 mg PO BID 03/01/17 08/04/17 Levocetirizine Dihydrochloride 0.5 mg PO HS 03/15/17 08/04/17 [Xyzal] Tamsulosin [Flomax] 1 cap PO DAILY 03/15/17 08/04/17 Pilocarpine [Salagen] 5 mg PO BID 08/03/17 08/04/17 Risperidone [Risperdal] 1 mg PO HS 08/03/17 08/04/17 risperiDONE [RisperDAL] 0.5 mg PO DAILY 08/03/17 08/04/17 Review of Systems - Review of Systems Constitutional: absent: Fatigue, Fevers Respiratory: absent: SOB, Cough Cardiovascular: absent: Chest Pain, Palpitations Gastrointestinal: absent: Abdominal Pain, Constipation, Diarrhea, Nausea, Vomiting Genitourinary Male: absent: Dysuria, Frequency, Hematuria Musculoskeletal: absent: Arthralgias, Back Pain, Neck Pain Skin: absent: Rash, Pruritis Neurological: absent: Headache, Dizziness Psychiatric: Anxiety, Depression. absent: Suicidal Ideation Physical Exam Vital Signs Reviewed: Yes Temperature: Afebrile Blood Pressure: Normal Pulse: Regular Respiratory Rate: Normal Appearance: Positive for: Well-Appearing, Non-Toxic, Comfortable Pain Distress: None Mental Status: Positive for: Alert and Oriented X 3 - Systems Exam Head: Present: Atraumatic Mouth: Present: Moist Mucous Membranes Neck: Present: Normal Range of Motion Respiratory/Chest: Present: Clear to Auscultation Cardiovascular: Present: Regular Rate and Rhythm Abdomen: No: Tenderness, Rebound, Guarding Upper Extremity: Present: Normal ROM Lower Extremity: Present: Normal ROM Neurological: Present: GCS=15, Speech Normal Skin: Present: Warm, Dry, Normal Color. No: Rashes Psychiatric: Present: Alert, Oriented x 3, Anxious, Depressed Mood. No: Suicidal Ideation, Homicidal Ideation Vital Signs Temp Pulse Resp BP Pulse Ox 08/03/17 18:12 98.9 F 98 H 20 140/81 99 Medical Decision Making ED Course and Treatment: 08/03/17 22:06 Pt seen and evaluated by PES screener Werner, who discussed case with psychiatrist retail sales professional. Pt will be admitted to Behavioral health for OCD under Dr. Lovelace's service. Pt agreeable with plan. (Bc Dill) 08/03/17 21:32 Patient is nontoxic well-appearing in no distress vital signs are stable. CBC WNL CMP WNL Tylenol WNL Salicylate WNL Alcohol level WNL Urine drug screen wnl UA; wnl cxr: wnl ekg sinus tachycardia at 101b/m no st elevations pt is medically cleared for PES evaluation Patient was seen and evaluated by PES screener: werner case signed out to dr. dill pending PES evaluation, disposition. (Britt Marc) - Lab Interpretations Lab Results: 08/03/17 18:45 08/03/17 18:45 Lab Results 08/03/17 19:00: Urine Opiates Screen Negative, Urine Methadone Screen Negative, Ur Barbiturates Screen Negative, Ur Phencyclidine Scrn Negative, Ur Amphetamines Screen Negative, U Benzodiazepines Scrn Negative, U Oth Cocaine Metabols Negative, U Cannabinoids Screen Negative 08/03/17 19:00: Urine Color Yellow, Urine Appearance Clear, Urine pH 6.0, Ur Specific [place] 1.020, Urine Protein Negative, Urine Glucose (UA) Negative, Urine Ketones Negative, Urine Blood Negative, Urine Nitrate Negative, Urine Bilirubin Negative, Urine Urobilinogen 0.2, Ur Leukocyte Esterase Negative 08/03/17 18:45: Alcohol, Quantitative < 10 08/03/17 18:45: Salicylates < 1 L, Acetaminophen < 10.0 L 08/03/17 18:45: Sodium 142, Potassium 3.5 L, Chloride 101, Carbon Dioxide 29, Anion Gap 15, BUN 11, Creatinine 0.8, Est GFR ( Amer) > 60, Est GFR (Non- Af Amer) > 60, Random Glucose 95, Calcium 9.2, Total Bilirubin 0.6, AST 29, ALT 36, Alkaline Phosphatase 82, Total Protein 7.8, Albumin 4.5, Globulin 3.3, Albumin/Globulin Ratio 1.3 08/03/17 18:45: WBC 6.6, RBC 4.36, Hgb 13.5 L, Hct 38.4 L, MCV 88.1 D, MCH 31.0 , MCHC 35.2, RDW 13.2, Plt Count 237, MPV 8.8, Gran % 70.0 H, Lymph % (Auto) 20.1 L, Petroleum % (Auto) 8.5 H, Eos % (Auto) 1.1 L, Baso % (Auto) 0.3, Gran # 4.63 , Lymph # (Auto) 1.3, Petroleum # (Auto) 0.6, Eos # (Auto) 0.1, Baso # (Auto) 0.02 - RAD Interpretation Radiology Orders: 08/03/17 18:31 CHEST PORTABLE [RAD] Stat - Medication Orders Current Medication Orders: Acetaminophen (Tylenol 325mg Tab) 650 mg PO Q4H PRN PRN Reason: Pain, Mild (1-3) Al Hydrox/Mg Hydrox/Simethicone (Maalox Plus 30 Ml) 30 ml PO DAILY PRN PRN Reason: Upset Stomach Albuterol (Ventolin Hfa 90 Mcg/Actuation (8 G)) 2 puff IH [id number] PRN PRN Reason: Shortness of Breath Bupropion HCl (Wellbutrin) 75 mg PO DAILY SABA Clonazepam (Klonopin) 1 mg PO BID SABA PRN Reason: Protocol Clonazepam (Klonopin) 2 mg PO HS SABA Fluoxetine HCl (Prozac) 40 mg PO BID SABA Gabapentin (Neurontin) 600 mg PO TID SABA PRN Reason: Protocol Home Med (Home Med) 1 unit PO HS SABA Home Med (Home Med) 1 unit PO BID SABA Home Med (Home Med) 1 unit PO BID SABA Home Med (Home Med) 1 unit PO BID SABA Home Med (Home Med) 1 unit INH DAILY SABA Home Med (Home Med) 1 unit PO DAILY SABA Levetiracetam (Keppra) 750 mg PO BID [facility] Last Admin: 08/04/17 09:00 Dose: 750 mg Magnesium Hydroxide (Milk Of Magnesia) 30 ml PO DAILY PRN PRN Reason: Constipation Non-Formulary Medication (Clomipramine [Anafranil]) 100 mg PO HS SABA Risperidone (Risperdal Tab) 1 mg PO AMHS SABA PRN Reason: Protocol Tamsulosin HCl (Flomax) 0.4 mg PO QPM SABA Zaleplon (Sonata) 5 mg PO HS PRN PRN Reason: Insomnia Discontinued Medications Clonazepam (Klonopin) 1 mg PO DAILY SABA PRN Reason: Protocol Last Admin: 08/04/17 09:00 Dose: 1 mg Behavioural Document 08/04/17 09:00 RGO (Rec: 08/04/17 09:01 RGO [id number]) Maintenance Maintenance Dose Yes Clonazepam (Klonopin) 1 mg PO HS SABA Clonazepam (Klonopin) 1 mg PO STAT STA PRN Reason: Protocol Stop: 08/04/17 00:08 Last Admin: 08/04/17 00:18 Dose: 1 mg Behavioural Document 08/04/17 00:18 DCP (Rec: 08/04/17 00:18 DCP [id number]) Maintenance Maintenance Dose Yes Re-Assess: Reassess Psych Meds Document 08/04/17 01:18 DCP (Rec: 08/04/17 02:32 DCP [id number]) Reassess Psych Med Effective Fluoxetine HCl (Prozac) 20 mg PO DAILY [facility] Last Admin: 08/04/17 09:01 Dose: 20 mg Gabapentin (Neurontin) 300 mg PO TID SABA PRN Reason: Protocol Last Admin: 08/04/17 09:01 Dose: 300 mg Behavioural Document 08/04/17 09:01 RGO (Rec: 08/04/17 09:01 RGO [id number]) Maintenance Maintenance Dose Yes Gabapentin (Neurontin) 300 mg PO STAT STA PRN Reason: Protocol Stop: 08/04/17 00:08 Last Admin: 08/04/17 00:18 Dose: 300 mg Behavioural Document 08/04/17 00:18 DCP (Rec: 08/04/17 00:18 DCP [id number]) Maintenance Maintenance Dose Yes Re-Assess: Reassess Psych Meds Document 08/04/17 01:18 DCP (Rec: 08/04/17 02:32 DCP [id number]) Reassess Psych Med Effective Gabapentin (Neurontin) 300 mg PO TID SABA PRN Reason: Protocol Non-Formulary Medication (Clomipramine [Anafranil]) 50 mg PO HS SABA Risperidone (Risperdal Tab) 1 mg PO HS SABA PRN Reason: Protocol Risperidone (Risperdal Tab) 1 mg PO STAT STA PRN Reason: Protocol Stop: 08/04/17 00:08 Last Admin: 08/04/17 00:18 Dose: 1 mg Behavioural Document 08/04/17 00:18 DCP (Rec: 08/04/17 00:18 DCP [id number]) Maintenance Maintenance Dose Yes Re-Assess: Reassess Psych Meds Document 08/04/17 01:18 DCP (Rec: 08/04/17 02:32 DCP [id number]) Reassess Psych Med Effective Zaleplon (Sonata) 5 mg PO STAT STA Stop: 08/03/17 23:45 Last Admin: 08/04/17 00:19 Dose: 5 mg Disposition/Present on Arrival - Present on Arrival Any Indicators Present on Arrival: No History of DVT/PE: No History of Uncontrolled Diabetes: No Urinary Catheter: No History of Decub. Ulcer: No History Surgical Site Infection Following: None - Disposition Have Diagnosis and Disposition been Completed?: Yes Disposition Time: 22:00 Patient Plan: Admission - Disposition Diagnosis: OCD (obsessive compulsive disorder) Disposition: HOSPITALIZED Patient Problems: Current Active Problems Problem Status Onset Mood disorder Acute OCD (obsessive compulsive disorder) Acute Other stimulant use, unspecified with stimulant-induced anxiety disorder Acute Condition: FAIR
[2017-08-03] MEDS ORDERED: Alum-Mag Hydrox-Simethicone Susp (30 mL) PO PRN (23:44)
[2017-08-03] MEDS ORDERED: Magnesium Hydroxide Susp 30 ml UD PO PRN (23:44)
--- NOTE | 2017-08-04 01:54 | PCM.BM ---
<Jesus Hennessy - Last Filed: 08/04/17 01:51> Treatment Plan Problems - Problems identified on initial assessmt INEFFECTIVE COPING Date Initiated: 08/04/17 Time Initiated: 01:00 Assessment reference: NA Status: Active Priority: 1 ALTERED THOUGHT PROCESS Date Initiated: 08/04/17 Time Initiated: 01:00 Assessment reference: NA Status: Active Priority: 2 FEAR Date Initiated: 08/04/17 Time Initiated: 01:00 Assessment reference: NA Status: Active Priority: 3 SOCIAL ISOLATION Date Initiated: 08/04/17 Time Initiated: 13:00 Assessment reference: NA Status: Active Priority: 4 Treatment assets and liabiliti Patient Assests: adapts well, cooperative, educated, insightful, motivated, self -reliant, ADL independent, good support system, negotiates basic needs, cognitively intact Patient Liabilities: live alone, financial problems, medical problems - Milieu Protocol Maintain good personal hygiene: every other day Encourage regular showers, every shift Remind patient to perform daily oral care, every shift Assist patient to perform ADL's Maintain personal safety: every shift Educate patient to report safety concerns to staff, every shift Monitor environment for contraband/sharps Medication safety: Monitor for expected outcome, potential side effects: every shift, Assess barriers to learning: every shift, Assess readiness for medication education: every shift Family Contact Family involvement: Patient does not wish Family/SO involvement Discharge/Continuing Care - Education Needs Education Needs: Patient Medication, Patient Diagnosis/Disease Process, Patient Coping Skills, Patient Anger Management skills, Patient Placement options, Patient Community resources, Patient Nutrition, Patient Health Practices/Safety , Patient Aftercare Safety Plan - Discharge Discharge Criteria: Tolerates medication w/o severe side effects, Free of paranoid thoughts, Free of agitation, Normal sleep pattern, Ability to care for self <Christi Lovelace - Last Filed: 08/04/17 12:15> - Diagnosis (1) OCD (obsessive compulsive disorder) Status: Acute Interventions: 08/04/17 12:15 Psychoeducation Psychopharmacology/adjustment of medications as needed/ monitoring possible side effects Evaluate pt on daily basis Compliance with medications and follow up appointments Suicide and homicide risk assessment and prevention, coping strategies, safety plan Relapse prevention Reduction of symptoms Improve functional status Family involvement CBT, SSRI, exposure response prevention as outpatient Supportive therapy (2) Mood disorder Status: Acute Interventions: 08/04/17 12:16 Psychoeducation Psychopharmacology/adjustment of medications as needed/ monitoring possible side effects Evaluate pt on daily basis Compliance with medications and follow up appointments Suicide and homicide risk assessment and prevention Relapse prevention Reduction of symptoms Improve functional status Family involvement As outpatient: cognitive behavioral therapy (3) Other stimulant use, unspecified with stimulant-induced anxiety disorder Status: Acute Interventions: 08/04/17 12:16 avoid stimulants wellbutrin option discussed <Ruth Lima - Last Filed: 08/04/17 15:40> Family Contact - Outside Agency Agency 1 Care involvment: Information-sharing Agency contact name: [facility]. Toya Howell, lining caser Dr. Chucho Damon Care involvment: Information-sharing Agency contact name: Dr. Chucho Damon <Shamika Toth - Last Filed: 08/06/17 15:06>
[2017-08-04 08:26] LABS: GLUCOSE,FASTING 100 mg/dL (65-110); HDL CHOLESTEROL 53 mg/dL (29-60)
--- NOTE | 2017-08-04 08:31 | RAD ---
HISTORY: pes COMPARISON: 03/01/2017 FINDINGS: LUNGS: No active pulmonary disease. PLEURA: No significant pleural effusion identified, no pneumothorax apparent. CARDIOVASCULAR: No radiographic findings to suggest acute or significant cardiovascular disease. OSSEOUS STRUCTURES: No significant abnormalities. VISUALIZED UPPER ABDOMEN: Normal. OTHER FINDINGS: None. IMPRESSION: No active disease. No significant interval change compared to the prior examination(s).
[2017-08-04 08:37] LABS: LDL CHOLESTEROL 51 mg/dL (0-129)
[2017-08-04] MEDS ORDERED: PILOCARPINE 5 MG PO SCH (09:30)
[2017-08-04] MEDS ORDERED: AMITIZA 24 MCG PO SCH (09:30)
[2017-08-04] MEDS ORDERED: OMEGA ACID PO SCH (09:45)
[2017-08-04] MEDS ORDERED: BREO ELIPTA INH SCH (09:45)
[2017-08-04] MEDS ORDERED: ZANTAC 150 MG PO SCH (09:45)
[2017-08-04 10:27] VITALS: RESP 20
[2017-08-04] MEDS ORDERED: Albuterol HFA 90 mcg/actuation (8 g) IH PRN (12:09)
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
[2017-08-04] MEDS: AMITIZA 24 MCG PO SCH (17:10)
[2017-08-04] MEDS: PILOCARPINE 5 MG PO SCH (17:10)
[2017-08-04] MEDS: ZANTAC 150 MG PO SCH (17:10)
[2017-08-04] MEDS: ZOCOR 40 MG PO SCH (21:18)
[2017-08-04] MEDS: CLOMIPRAMINE 50 MG PO SCH (21:19)
[2017-08-04] MEDS ORDERED: CLOMIPRAMINE 50 MG PO SCH (22:00)
[2017-08-05] MEDS: ZANTAC 150 MG PO SCH ×2 (08:55→16:49)
[2017-08-05] MEDS: PILOCARPINE 5 MG PO SCH ×2 (08:56→16:50)
[2017-08-05] MEDS: BREO ELIPTA INH SCH (08:57)
[2017-08-05] MEDS: AMITIZA 24 MCG PO SCH ×2 (08:57→16:50)
[2017-08-05] MEDS: OMEGA ACID PO SCH (08:57)
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
[2017-08-05] MEDS: ZOCOR 40 MG PO SCH (21:06)
[2017-08-05] MEDS: CLOMIPRAMINE 50 MG PO SCH (21:06)
[2017-08-06] MEDS: AMITIZA 24 MCG PO SCH ×2 (08:58→18:02)
[2017-08-06] MEDS: PILOCARPINE 5 MG PO SCH ×2 (08:59→18:02)
[2017-08-06] MEDS: BREO ELIPTA INH SCH (09:01)
[2017-08-06] MEDS: ZANTAC 150 MG PO SCH ×2 (09:02→18:03)
[2017-08-06] MEDS: OMEGA ACID PO SCH (09:03)
[2017-08-06] MEDS: buPROPion 150 mg/24 Hours XL Tab PO SCH (09:06)
--- NOTE | 2017-08-06 16:13 | PCM.PYCHPN ---
Psychiatric Progress Note - Psychiatric Progress Note Patient seen today, length of contact: 30min Patient Chief Complaint: "I am doing little better, do you think I could go home within a few days?" Problems Identified/Issues Discussed: Suicide/ homicide prevention, past psychiatric h/o, current psychiatric symptoms , medical problems, risk/benefits and alternatives of medications, medications compliance, coping strategies, substance abuse h/o, relapse prevention, importance of follow up with psychiatrist and therapist, discharge plan. Medical Problems: knee problems, scheduled for a knee replacement surgery on August 14, 2017. TMJ syndrome. Diagnostic Results: 08/03/17 18:45 08/03/17 18:45 Lab Results 08/04/17 08:00: RPR Nonreactive 08/04/17 08:00: TSH 3rd Generation 3.79 08/04/17 08:00: Fasting Glucose 100, Triglycerides 66, Cholesterol 130, LDL Cholesterol Direct 51, HDL Cholesterol 53 08/03/17 19:00: Urine Opiates Screen Negative, Urine Methadone Screen Negative, Ur Barbiturates Screen Negative, Ur Phencyclidine Scrn Negative, Ur Amphetamines Screen Negative, U Benzodiazepines Scrn Negative, U Oth Cocaine Metabols Negative, U Cannabinoids Screen Negative 08/03/17 19:00: Urine Color Yellow, Urine Appearance Clear, Urine pH 6.0, Ur Specific [place] 1.020, Urine Protein Negative, Urine Glucose (UA) Negative, Urine Ketones Negative, Urine Blood Negative, Urine Nitrate Negative, Urine Bilirubin Negative, Urine Urobilinogen 0.2, Ur Leukocyte Esterase Negative 08/03/17 18:45: Alcohol, Quantitative < 10 08/03/17 18:45: Salicylates < 1 L, Acetaminophen < 10.0 L 08/03/17 18:45: Sodium 142, Potassium 3.5 L, Chloride 101, Carbon Dioxide 29, Anion Gap 15, BUN 11, Creatinine 0.8, Est GFR ( Amer) > 60, Est GFR (Non- Af Amer) > 60, Random Glucose 95, Calcium 9.2, Total Bilirubin 0.6, AST 29, ALT 36, Alkaline Phosphatase 82, Total Protein 7.8, Albumin 4.5, Globulin 3.3, Albumin/Globulin Ratio 1.3 08/03/17 18:45: WBC 6.6, RBC 4.36, Hgb 13.5 L, Hct 38.4 L, MCV 88.1 D, MCH 31.0 , MCHC 35.2, RDW 13.2, Plt Count 237, MPV 8.8, Gran % 70.0 H, Lymph % (Auto) 20.1 L, [place] % (Auto) 8.5 H, Eos % (Auto) 1.1 L, Baso % (Auto) 0.3, Gran # 4.63 , Lymph # (Auto) 1.3, [place] # (Auto) 0.6, Eos # (Auto) 0.1, Baso # (Auto) 0.02 Vital Signs Temp Pulse Resp BP Pulse Ox 08/05/17 06:54 97.3 F L 70 20 108/70 08/04/17 15:49 88 121/76 08/04/17 07:00 97.9 F 84 20 113/64 08/04/17 01:11 22 08/04/17 00:11 98.0 F 87 20 137/82 08/03/17 18:12 98.9 F 98 H 20 140/81 99 DSM 5 Symptoms Update: shortly patient is 57 year old male, history of mental illness, more than 15 psychiatric admissions, currently under care of Dr. 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 patient was seen and examined today at the hallway, patient presented with acceptable personal hygiene, less anxious, affect was more reactive, patient smiled back to this technical writer and editor a couple of times. pt said he had a good night sleep, reported feeling anxious, but with some improvement. as per staff pt is visible at the unit, no behavioral issues. Patient tolerates medications well no side effects observe, or reported, AIMS 0 , no EPS. as per collaterals by SW from pt's sister, patient family wants to sell a family house where pt lives, pt was stressed out about it. pt was not compliant with medications, was progressively worse for the past three months but unable to function for the past two weeks. see SW note for more detailed information. Impression: DSM 5 Diagnosis: OCD with psychosis r/o mdd Medication Change: No (adjusted yesterday) Medical Record Reviewed: Yes Consults ordered or reviewed: medical consult appreciated Mental Status Examination - Cognitive Function Orientation: Person, Place, Situation Memory: Intact Attention: Poor (some improvement) Concentration: Poor Association: WNL Fund of Knowledge: WNL - Mood Mood: Depressed, Anxious - Affect Affect: Flat - Speech Speech: Appropriate - Formal Thought Process Formal Thought Process: Other (ocd) - Suicidal Ideation Suicidal Ideation: No - Homicidal Ideation Homicidal Ideation: No Goal/Treatment Plan - Goal/Treatment Plan Need for Continued Stay: Remain at risks for inpatient hospitalization, Severe depression anxiety, Discharge may exacerbated symptoms, Severe functional impairment Progress Toward Problem(s) and Goals/Treatment Plan: Milieu, structure, supportive therapy Prozac 40mg po bid for depression, anxiety OCD Anafranil 100 mg at the bedtime for OCD Risperdal 1 mg at the morning time and 1 mg at bedtime Klonopin 2mg at the morning time and 2 mg at bedtime Keppra 750 mg twice a day, will be continued 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 Christy officially diagnosed heel with seizure disorder Zocor 40 mg at bedtime was continued by Dr. Sutton Zantac 150 milligrams twice a day will be continued Amitiza 24 g 1 at the morning time 1 at 1 PM will be continued Xyzal out 0.5 mg at bedtime will be continued Salagen 5 mg at the morning time and at 1 PM will be continued Gabapentin 600 mg 3 times a day Flomax 0.5 mg daily will be continued nhaler will be continued Ventolin inhaler as needed [place] 3 will be continued Wellbutrin ER 150mg po daily for adhd and depression, was increased yesterday patient was in agreement with the treatment plan. Medical consult appreciated, see medical team note for more detailed info consultation for discharge plan and social issues Family involvement Follow up on labs Will monitor closely Pt was educated about risk/benefits and alternatives of medications, coping strategies (safety plan, suicide prevention), relapse prevention, importance of follow up with psychiatrist and therapist, stay away from drugs/alcohol/smoking Estimated Date of D/C: 08/10/17
[2017-08-06] MEDS: ZOCOR 40 MG PO SCH (21:20)
[2017-08-06] MEDS: CLOMIPRAMINE 50 MG PO SCH (21:20)
[2017-08-07] MEDS: buPROPion 150 mg/24 Hours XL Tab PO SCH (08:09)
[2017-08-07] MEDS: OMEGA ACID PO SCH (08:14)
[2017-08-07] MEDS: BREO ELIPTA INH SCH (08:15)
[2017-08-07] MEDS: AMITIZA 24 MCG PO SCH ×2 (08:16→16:27)
[2017-08-07] MEDS: PILOCARPINE 5 MG PO SCH ×2 (08:17→16:28)
[2017-08-07] MEDS: ZANTAC 150 MG PO SCH ×2 (08:18→16:28)
--- NOTE | 2017-08-07 15:28 | PCM.PYCHPN ---
Psychiatric Progress Note - Psychiatric Progress Note Patient seen today, length of contact: 30min Patient Chief Complaint: "at times I still want to call police to ask if I hurt anyone while driving" Problems Identified/Issues Discussed: Suicide/ homicide prevention, past psychiatric h/o, current psychiatric symptoms , medical problems, risk/benefits and alternatives of medications, medications compliance, coping strategies, substance abuse h/o, relapse prevention, importance of follow up with psychiatrist and therapist, discharge plan. Medical Problems: knee problems, scheduled for a knee replacement surgery on August 14, 2017. TMJ syndrome. Diagnostic Results: 08/03/17 18:45 08/03/17 18:45 Lab Results 08/04/17 08:00: RPR Nonreactive 08/04/17 08:00: TSH 3rd Generation 3.79 08/04/17 08:00: Fasting Glucose 100, Triglycerides 66, Cholesterol 130, LDL Cholesterol Direct 51, HDL Cholesterol 53 08/03/17 19:00: Urine Opiates Screen Negative, Urine Methadone Screen Negative, Ur Barbiturates Screen Negative, Ur Phencyclidine Scrn Negative, Ur Amphetamines Screen Negative, U Benzodiazepines Scrn Negative, U Oth Cocaine Metabols Negative, U Cannabinoids Screen Negative 08/03/17 19:00: Urine Color Yellow, Urine Appearance Clear, Urine pH 6.0, Ur Specific [place] 1.020, Urine Protein Negative, Urine Glucose (UA) Negative, Urine Ketones Negative, Urine Blood Negative, Urine Nitrate Negative, Urine Bilirubin Negative, Urine Urobilinogen 0.2, Ur Leukocyte Esterase Negative 08/03/17 18:45: Alcohol, Quantitative < 10 08/03/17 18:45: Salicylates < 1 L, Acetaminophen < 10.0 L 08/03/17 18:45: Sodium 142, Potassium 3.5 L, Chloride 101, Carbon Dioxide 29, Anion Gap 15, BUN 11, Creatinine 0.8, Est GFR ( Amer) > 60, Est GFR (Non- Af Amer) > 60, Random Glucose 95, Calcium 9.2, Total Bilirubin 0.6, AST 29, ALT 36, Alkaline Phosphatase 82, Total Protein 7.8, Albumin 4.5, Globulin 3.3, Albumin/Globulin Ratio 1.3 08/03/17 18:45: WBC 6.6, RBC 4.36, Hgb 13.5 L, Hct 38.4 L, MCV 88.1 D, MCH 31.0 , MCHC 35.2, RDW 13.2, Plt Count 237, MPV 8.8, Gran % 70.0 H, Lymph % (Auto) 20.1 L, [place] % (Auto) 8.5 H, Eos % (Auto) 1.1 L, Baso % (Auto) 0.3, Gran # 4.63 , Lymph # (Auto) 1.3, [place] # (Auto) 0.6, Eos # (Auto) 0.1, Baso # (Auto) 0.02 Vital Signs Temp Pulse Resp BP Pulse Ox 08/05/17 06:54 97.3 F L 70 20 108/70 08/04/17 15:49 88 121/76 08/04/17 07:00 97.9 F 84 20 113/64 08/04/17 01:11 22 08/04/17 00:11 98.0 F 87 20 137/82 08/03/17 18:12 98.9 F 98 H 20 140/81 99 Temp Pulse Resp BP Pulse Ox 97.2 F L 79 20 93/58 L 99 08/07/17 07:12 08/07/17 07:12 08/07/17 07:12 08/07/17 07:12 08/03/17 18:12 DSM 5 Symptoms Update: shortly patient is 57 year old male, history of mental illness, more than 15 psychiatric admissions, currently under care of Dr. 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 patient was seen and examined today at the TV area, patient presented with acceptable personal hygiene, less anxious, affect was more reactive, patient smiled back to this clinical writer a couple of times, at the same time pt c/o anxiety about d/c, pt said he is stressed out about the discharge and "I will have a lot of changes in the house", pt's family wants to sell the house where pt lives. pt said at times he would feel that he hurt someone while driving but " It is little better, at times I want to call police and ask if I hurt anyone", this clinical writer asked if pt wants to increase risperdal, but pt refused, willing to increase Neurontin. pt said he had a good night sleep. pt's block and case maker came and visit pt today, will ask for the feedback. as per staff pt is visible at the unit, no behavioral issues. Patient tolerates medications well no side effects observe, or reported, AIMS 0 , no EPS. as per collaterals by SW from pt's sister, patient family wants to sell a family house where pt lives, pt was stressed out about it. pt was not compliant with medications, was progressively worse for the past three months but unable to function for the past two weeks. see SW note for more detailed information. Impression: DSM 5 Diagnosis: OCD with psychosis r/o mdd Medication Change: Yes (neurontin increased) Medical Record Reviewed: Yes Mental Status Examination - Cognitive Function Orientation: Person, Place, Situation Memory: Intact Attention: Poor (some improvement) Concentration: Poor (some improvement) Association: WNL Fund of Knowledge: WNL - Mood Mood: Depressed ("I M little better"), Anxious - Affect Affect: Flat - Speech Speech: Appropriate - Formal Thought Process Formal Thought Process: Other (ocd) - Suicidal Ideation Suicidal Ideation: No - Homicidal Ideation Homicidal Ideation: No Goal/Treatment Plan - Goal/Treatment Plan Need for Continued Stay: Remain at risks for inpatient hospitalization, Severe depression anxiety, Discharge may exacerbated symptoms, Severe functional impairment Progress Toward Problem(s) and Goals/Treatment Plan: Milieu, structure, supportive therapy Prozac 40mg po bid for depression, anxiety OCD Anafranil 100 mg at the bedtime for OCD Risperdal 1 mg at the morning time and 1 mg at bedtime Klonopin 2mg at the morning time and 2 mg at bedtime Keppra 750 mg twice a day, will be continued 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 Christy officially diagnosed heel with seizure disorder Zocor 40 mg at bedtime was continued by Dr. Sutton Zantac 150 milligrams twice a day will be continued Amitiza 24 g 1 at the morning time 1 at 1 PM will be continued Xyzal out 0.5 mg at bedtime will be continued Salagen 5 mg at the morning time and at 1 PM will be continued Gabapentin 600 mg 4 times a day Flomax 0.5 mg daily will be continued nhaler will be continued Ventolin inhaler as needed [place] 3 will be continued Wellbutrin ER 150mg po daily for adhd and depression, was increased yesterday patient was in agreement with the treatment plan. Medical consult appreciated, see medical team note for more detailed info SW consultation for discharge plan and social issues Family involvement Follow up on labs Will monitor closely Pt was educated about risk/benefits and alternatives of medications, coping strategies (safety plan, suicide prevention), relapse prevention, importance of follow up with psychiatrist and therapist, stay away from drugs/alcohol/smoking Estimated Date of D/C: 08/10/17
[2017-08-07] MEDS: CLOMIPRAMINE 50 MG PO SCH (21:15)
[2017-08-07] MEDS: ZOCOR 40 MG PO SCH (21:15)
[2017-08-08 07:12] VITALS: BP 128/86; PULSE 91; TEMP 98.5
[2017-08-08] MEDS: buPROPion 150 mg/24 Hours XL Tab PO SCH (07:51)
[2017-08-08] MEDS: OMEGA ACID PO SCH (07:54)
[2017-08-08] MEDS: ZANTAC 150 MG PO SCH (07:55)
[2017-08-08] MEDS: AMITIZA 24 MCG PO SCH (07:55)
[2017-08-08] MEDS: PILOCARPINE 5 MG PO SCH (07:56)
[2017-08-08] MEDS: BREO ELIPTA INH SCH (11:49)
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
== END 2017-08-08 14:00 | disposition home or self-care (01) | DRG 882 ==
LOC: ED 17:48 → ERH 22:32 → PSYC 23:50
PROVIDERS: ADMIT Psychiatry & Neurology Psychiatry; ATTEND Psychiatry & Neurology Psychiatry
DX: F42.9 Obsessive-compulsive disorder, unspecified (principal); F15.980 Other stimulant use, unspecified with stimulant-induced anxiety disorder; F32.9 Major depressive disorder, single episode, unspecified; M26.609 Unspecified temporomandibular joint disorder, unspecified side; G47.30 Sleep apnea, unspecified; K21.9 Gastro-esophageal reflux disease without esophagitis; G40.909 Epilepsy, unspecified, not intractable, without status epilepticus; N40.0 Benign prostatic hyperplasia without lower urinary tract symptoms; G62.9 Polyneuropathy, unspecified; Z88.0 Allergy status to penicillin

== ENCOUNTER 2018-03-09 14:13 | Emergency (ER) | payer MEDICARE ==
[2018-03-09 15:27] VITALS: TEMP 97.9; BMI 34.0
[2018-03-09 16:30] LABS: ACETAMINOPHEN < 10.0 ug/ml (10.0-20.0); SALICYLATE < 1 mg/dL (2.0-20.0)
[2018-03-09 16:31] LABS: BASO # 0.03 K/mm3 (0.0-2.0); BASO % 0.4 % (0.0-3.0); EOS # 0.1 (0.0-0.7); EOS % 0.8 % (1.5-5.0); GRAN % 75.2 % (50.0-68.0); HEMOGLOBIN 13.9 g/dL (14.0-18.0); LYMPH # 1.3 (1.2-3.4); LYMPH % 16.8 % (22.0-35.0); MEAN CELL VOLUME 88.4 fl (80.0-105.0); MEAN CORPUSCULAR HEMOGLOBIN 29.3 pg (25.0-35.0); MEAN CORPUSCULAR HGB CONC 33.2 g/dl (31.0-37.0); MEAN PLATELET VOLUME 9.1 fl (7.0-11.0); MONO # 0.5 (0.1-0.6); MONO % 6.8 % (1.0-6.0); RBC 4.74 10^6/uL (3.5-6.1); RED CELL DISTRIBUTION WIDTH 14.4 % (11.5-14.5)
[2018-03-09 16:32] LABS: ALB/GLOB RATIO 1.2 (1.1-1.8); ALBUMIN 4.5 g/dL (3.0-4.8); ALT/SGPT 27 U/L (7-56); AST/SGOT 40 U/L (17-59); BLOOD UREA NITROGEN 11 mg/dL (7-21); CALCIUM 9.3 mg/dL (8.4-10.5); GFR NON-AFRICAN AMERICAN > 60
[2018-03-09 16:36] LABS: URINE BILIRUBIN NEGATIVE (NEGATIVE); URINE BLOOD NEGATIVE (NEGATIVE); URINE GLUCOSE (UA) NEGATIVE (NEGATIVE); URINE LEUKOCYTE ESTERASE NEGATIVE Leu/uL (NEGATIVE); URINE PROTEIN TRACE mg/dL (<30 mg/dL)
[2018-03-09 16:37] LABS: URINE APPEARANCE CLEAR (CLEAR); URINE COLOR YELLOW (YELLOW)
[2018-03-09 16:41] LABS: TROPONIN I < 0.01 ng/mL
[2018-03-09 16:50] LABS: OPIATES, UR NEGATIVE (NEGATIVE)
[2018-03-09 16:56] LABS: BARBITURATES, UR NEGATIVE (NEGATIVE); BENZODIAZEPINES, UR POSITIVE (NEGATIVE); PHENCYCLIDINE, UR NEGATIVE (NEGATIVE)
[2018-03-09 17:00] LABS: URINE RBC 0 - 2 /hpf (0-2)
[2018-03-09 17:01] LABS: URINE BACTERIA TRACE (NEG); URINE CALCIUM OXALATE CRYSTALS SMALL /hpf; URINE HYALINE CAST 0 - 2 /hpf; URINE WBC 0 - 2 /hpf (0-6)
[2018-03-09 18:29] VITALS: BP 152/86; RESP 17; O2SAT 95
--- NOTE | 2018-03-09 18:44 | RAD ---
Date of service: 03/09/2018 HISTORY: pes eval COMPARISON: No prior. FINDINGS: LUNGS: No active pulmonary disease. PLEURA: No significant pleural effusion identified, no pneumothorax apparent. CARDIOVASCULAR: No atherosclerotic calcification present No radiographic findings to suggest acute or significant cardiovascular disease. OSSEOUS STRUCTURES: No significant abnormalities. VISUALIZED UPPER ABDOMEN: Normal. OTHER FINDINGS: None. IMPRESSION: No active disease. No significant interval change compared to the prior examination(s).
[2018-03-09 19:19] VITALS: PULSE 95
--- NOTE | 2018-03-09 19:22 | ED PDOC ---
Arrival/HPI - General Chief Complaint: Anxiety Time Seen by Provider: 03/09/18 14:27 Historian: Patient - History of Present Illness Narrative History of Present Illness (Text): 03/09/18 19:23 57-year-old male presents today complaining of increasing anxiety. Patient states he's been feeling more and more anxious due to family problems at home. Patient states he has been taking his medications as prescribed but they do not seem to be helping. He denies suicidal or homicidal ideation. He denies chest pain or shortness of breath. Patient states yesterday he had a little bit of acid reflux which has resolved. He denies nausea or vomiting. No headaches dizziness or weakness. No other complaints Past Medical History - Provider Review Nursing Documentation Reviewed: Yes - Travel History Have you recently traveled outside [place] w/in the past 3 mons?: No - Infectious Disease Hx of Infectious Diseases: None - Tetanus Immunization Tetanus Immunization: Up to Date - Cardiac Hx Cardiac Disorders: No Hx Hypertension: No - Pulmonary Hx Tuberculosis: No - Neurological HX Cerebrovascular Accident: No Hx Seizures: No - HEENT Hx HEENT Disorder: Yes Other/Comment: Inner ear vestibular disfunction - Renal Hx Renal Disorder: No - Endocrine/Metabolic Hx Endocrine Disorders: No - Hematological/Oncological Hx Cancer: No - Integumentary Hx Dermatological Disorder: No - Musculoskeletal/Rheumatological Hx Musculoskeletal Disorders: Yes Hx Arthritis: Yes - Gastrointestinal Hx Gastrointestinal Disorders: Yes Hx Gastroesophageal Reflux: Yes - Genitourinary/Gynecological Hx Sexually Transmitted Diseases: No - Psychiatric Hx Anxiety: Yes Hx Depression: Yes Hx Emotional Abuse: No Hx Physical Abuse: No Hx Substance Use: No Other/Comment: OCD - Surgical History Hx Orthopedic Surgery: Yes (Left knee 08/2017) Other/Comment: L testicular surgery. Nasal surgery for sleep apnea - Anesthesia Hx Anesthesia: Yes - Suicidal Assessment Feels Threatened In Home Enviroment: No Family/Social History - Physician Review Nursing Documentation Reviewed: Yes Family/Social History: Unknown Family HX Smoking Status: Never Smoked Hx Alcohol Use: No Hx Substance Use: No Hx Substance Use Treatment: No Allergies/Home Meds Allergies/Adverse Reactions: Allergies ibuprofen [From Motrin] Allergy (Verified 08/04/17 01:08) RASH Penicillins Allergy (Verified 08/04/17 01:08) SWELLING amoxapine Adverse Reaction (Verified 08/04/17 01:08) ANAPHYLAXIS Home Medications: Home Meds Medication Instructions Recorded Confirmed levETIRAcetam [Keppra] 750 mg PO BID 03/01/17 08/04/17 Tamsulosin [Flomax] 1 cap PO DAILY 03/15/17 08/04/17 Review of Systems - Review of Systems Constitutional: absent: Fatigue, Fevers Respiratory: absent: SOB, Cough Cardiovascular: absent: Chest Pain, Palpitations Gastrointestinal: absent: Abdominal Pain, Nausea, Vomiting Genitourinary Male: absent: Dysuria, Frequency, Hematuria Musculoskeletal: absent: Arthralgias Skin: absent: Rash, Pruritis Neurological: absent: Headache, Dizziness Psychiatric: absent: Anxiety, Depression Physical Exam Vital Signs Reviewed: Yes Vital Signs Temp Pulse Resp BP Pulse Ox 03/09/18 19:18 95 H 95 03/09/18 18:28 103 H 17 152/86 H 95 03/09/18 17:30 100 H 18 129/73 96 03/09/18 15:26 97.9 F 119 H 18 123/86 95 Temperature: Afebrile Blood Pressure: Normal Pulse: Tachycardic Respiratory Rate: Normal Appearance: Positive for: Well-Appearing, Non-Toxic, Comfortable Pain Distress: None Mental Status: Positive for: Alert and Oriented X 3 - Systems Exam Head: Present: Atraumatic Mouth: Present: Moist Mucous Membranes Respiratory/Chest: Present: Clear to Auscultation Cardiovascular: Present: Tachycardic. No: Murmurs Abdomen: No: Tenderness Upper Extremity: Present: Normal ROM Lower Extremity: Present: Normal ROM Neurological: Present: GCS=15, Speech Normal Skin: Present: Warm, Dry, Normal Color. No: Rashes Psychiatric: Present: Alert, Oriented x 3 Medical Decision Making ED Course and Treatment: 03/09/18 19:28 Patient is nontoxic well-appearing in no distress vital signs are stable. CBC WNL CMP WNL Tylenol WNL Salicylate WNL Alcohol level WNL Urine drug screen + benzos UA; wnl cxr: wnl ekg sinus tachycardia with PVCs at 113 bpm normal axis no ST elevations QTc 463 pt is medically cleared for PES evaluation Patient was seen and evaluated by PES screener: lorena Patient was cleared psychiatrically for discharge. Patient was given 0.25 of Xanax in the emergency room. Patient states his anxiety has decreased by half and he is feeling better and wants to go home. Patient was advised to return immediately if symptoms worsen persist or if new concerning symptoms develop Patient verbalizes understanding of discharge instructions and need for immediate followup. all aspects of this case were discussed the attending of record. Impression; anxiety take your medications as prescribed follow up with the psychiatrist within the next 2 days Return immediately if symptoms worsen persist or if new concerning symptoms develop - Lab Interpretations Lab Results: 03/09/18 16:12 03/09/18 16:12 Lab Results 03/09/18 16:27: Urine Opiates Screen Negative, Urine Methadone Screen Negative, Ur Barbiturates Screen Negative, Ur Phencyclidine Scrn Negative, Ur Amphetamines Screen Negative, U Benzodiazepines Scrn Positive H, U Oth Cocaine Metabols N egative, U Cannabinoids Screen Negative 03/09/18 16:27: Urine Color Yellow, Urine Appearance Clear, Urine pH 6.0, Ur Specific [place] >= 1.030, Urine Protein Trace H, Urine Glucose (UA) Negative, Urine Ketones Trace H, Urine Blood Negative, Urine Nitrate Negative, Urine Bilirubin Negative, Urine Urobilinogen 1.0 H, Ur Leukocyte Esterase Negative, Urine RBC 0 - 2, Urine WBC 0 - 2, Ur Epithelial Cells None, Calcium Oxalate Crystal Small, Urine Bacteria Trace, Hyaline Casts 0 - 2, Urine Other Mucus 03/09/18 16:12: Alcohol, Quantitative < 10 03/09/18 16:12: Salicylates < 1 L, Acetaminophen < 10.0 L 03/09/18 16:12: Sodium 142, Potassium 3.6, Chloride 105, Carbon Dioxide 29, Anion Gap 12, BUN 11, Creatinine 0.9, Est GFR ( Amer) > 60, Est GFR (Non- Af Amer) > 60, Random Glucose 137 H, Calcium 9.3, Total Bilirubin 0.9, AST 40, ALT 27, Alkaline Phosphatase 95, Lactate Dehydrogenase 529, Total Creatine Kinase 80, Troponin I < 0.01, Total Protein 8.3, Albumin 4.5, Globulin 3.7, Albumin/Globulin Ratio 1.2 03/09/18 16:12: WBC 8.0, RBC 4.74, Hgb 13.9 L D, Hct 41.9 L, MCV 88.4, MCH 29.3, MCHC 33.2, RDW 14.4, Plt Count 233, MPV 9.1, Gran % 75.2 H, Lymph % (Auto) 16.8 L, [place] % (Auto) 6.8 H, Eos % (Auto) 0.8 L, Baso % (Auto) 0.4, Gran # 6.00, Lymph # (Auto) 1.3, [place] # (Auto) 0.5, Eos # (Auto) 0.1, Baso # (Auto) 0.03 - RAD Interpretation Radiology Orders: 03/09/18 15:47 CHEST PORTABLE [RAD] Stat - Medication Orders Current Medication Orders: Discontinued Medications Alprazolam (Xanax) 0.25 mg PO STAT STA; Protocol Stop: 03/09/18 16:13 Last Admin: 03/09/18 17:30 Dose: 0.25 mg Disposition/Present on Arrival - Present on Arrival Any Indicators Present on Arrival: No History of DVT/PE: No History of Uncontrolled Diabetes: No Urinary Catheter: No History of Decub. Ulcer: No History Surgical Site Infection Following: None - Disposition Have Diagnosis and Disposition been Completed?: Yes Diagnosis: Anxiety Disposition: HOME/ ROUTINE Disposition Time: 19:00 Patient Plan: Discharge Patient Problems: Current Active Problems Problem Status Onset Anxiety Acute Condition: GOOD Discharge Instructions (ExitCare): Anxiety, Adult (DC) Additional Instructions: take your medications as prescribed follow up with the psychiatrist within the next 2 days Return immediately if symptoms worsen persist or if new concerning symptoms develop Referrals: Sheila Schmidt MD [Medical Doctor] - Follow up with primary [facility] [Outside] - Follow up with primary [facility] [Outside] - Follow up with primary
--- NOTE | 2018-03-09 20:20 | CARD ---
APPROVED REPORT Date of service: 03/09/2018 EKG Measurement Heart [id number] <Conclusion> Poor data quality, interpretation may be adversely affected Sinus tachycardia with occasional premature ventricular complexes Otherwise normal ECG
== END 2018-03-09 19:38 | disposition home or self-care (01) ==
LOC: ED 14:13
DX: F41.9 Anxiety disorder, unspecified (principal)
CPT/HCPCS: 71045; 80053; 81001; 82550; 83615; 84484; 85025; 90791; 93005; 99283; G0480

== ENCOUNTER 2018-03-18 12:03 | Inpatient (IN) | payer MEDICARE ==
[2018-03-18 12:04] VITALS: BMI 34.0
--- NOTE | 2018-03-18 12:43 | ED PDOC ---
Arrival/HPI - General Chief Complaint: Anxiety Time Seen by Provider: 03/18/18 12:12 Historian: Patient - History of Present Illness Narrative History of Present Illness (Text): 03/18/18 12:35 A 57 year old male, whose past medical history includes arthritis, anxiety, depression and OCD, presents to the emergency department complaining of worsening anxiety since this morning. Patient requests to speak with psychiatry. Patient denies any suicidal/homicidal ideation, or any other symptomatic complaints at this time. No PMD Past Medical History - Provider Review Nursing Documentation Reviewed: Yes - Infectious Disease Hx of Infectious Diseases: None - Tetanus Immunization Tetanus Immunization: Up to Date - Cardiac Hx Cardiac Disorders: No Hx Hypertension: No - Pulmonary Hx Tuberculosis: No - Neurological HX Cerebrovascular Accident: No Hx Seizures: No - HEENT Hx HEENT Disorder: Yes Other/Comment: Inner ear vestibular disfunction - Renal Hx Renal Disorder: No - Endocrine/Metabolic Hx Endocrine Disorders: No - Hematological/Oncological Hx Cancer: No - Integumentary Hx Dermatological Disorder: No - Musculoskeletal/Rheumatological Hx Musculoskeletal Disorders: Yes Hx Arthritis: Yes - Gastrointestinal Hx Gastrointestinal Disorders: Yes Hx Gastroesophageal Reflux: Yes - Genitourinary/Gynecological Hx Sexually Transmitted Diseases: No - Psychiatric Hx Anxiety: Yes Hx Depression: Yes Hx Emotional Abuse: No Hx Physical Abuse: No Hx Substance Use: No Other/Comment: OCD - Surgical History Hx Orthopedic Surgery: Yes (Left knee 08/2017) Other/Comment: L testicular surgery. Nasal surgery for sleep apnea - Anesthesia Hx Anesthesia: Yes - Suicidal Assessment Feels Threatened In Home Enviroment: No Family/Social History - Physician Review Nursing Documentation Reviewed: Yes Family/Social History: No Known Family HX Smoking Status: Never Smoked Hx Alcohol Use: No Hx Substance Use: No Hx Substance Use Treatment: No Allergies/Home Meds Allergies/Adverse Reactions: Allergies ibuprofen [From Motrin] Allergy (Verified 03/18/18 12:26) RASH Penicillins Allergy (Verified 03/18/18 12:26) SWELLING amoxapine Adverse Reaction (Verified 03/18/18 12:26) ANAPHYLAXIS Home Medications: Home Meds Medication Instructions Recorded Confirmed levETIRAcetam [Keppra] 750 mg PO BID 03/01/17 03/18/18 Tamsulosin [Flomax] 1 cap PO DAILY 03/15/17 03/18/18 Review of Systems - Review of Systems Constitutional: absent: Fevers, Night Sweats Eyes: absent: Vision Changes Respiratory: absent: SOB, Cough, Sputum, Wheezing Cardiovascular: absent: Chest Pain Gastrointestinal: absent: Abdominal Pain, Constipation, Diarrhea, Nausea, Vomiting Genitourinary Male: absent: Dysuria Neurological: absent: Headache, Dizziness, Focal Weakness, Gait Changes Psychiatric: Anxiety. absent: Suicidal Ideation Physical Exam Vital Signs Reviewed: Yes Vital Signs Temp Pulse Resp BP Pulse Ox 03/18/18 12:24 98.3 F 85 18 156/89 H 95 Temperature: Afebrile Blood Pressure: Normal Pulse: Regular Respiratory Rate: Normal Appearance: Positive for: Well-Appearing, Non-Toxic, Comfortable Pain Distress: None Mental Status: Positive for: Alert and Oriented X 3, other (anxious) - Systems Exam Head: Present: Atraumatic, Normocephalic Pupils: Present: PERRL Extroacular Muscles: Present: EOMI Conjunctiva: Present: Normal Mouth: Present: Moist Mucous Membranes Neck: Present: Normal Range of Motion Respiratory/Chest: Present: Clear to Auscultation, Good Air Exchange. No: Respiratory Distress, Accessory Muscle Use Cardiovascular: Present: Regular Rate and Rhythm, Normal S1, S2. No: Murmurs Abdomen: No: Tenderness, Distention, Peritoneal Signs Back: Present: Normal Inspection Upper Extremity: Present: Normal Inspection. No: Cyanosis, Edema Lower Extremity: Present: Normal Inspection. No: Edema Neurological: Present: GCS=15, CN II-XII Intact, Speech Normal Skin: Present: Warm, Dry, Normal Color. No: Rashes Psychiatric: Present: Alert, Oriented x 3, Anxious Medical Decision Making ED Course and Treatment: 03/18/18 12:37 Impression: 57 year old male with anxiety. Plan: -- EKG -- Reassess and disposition Prior Visits: Notes and results from previous visits were reviewed. Patient was last seen in [facility] emergency department on 03/09/2018 for increasing anxiety. Progress Notes: EKG: Ordered, reviewed, and independently interpreted the EKG. Rate : 103 BPM Rhythm : Sinus tachycardia. Interpretation : PVCs. Comparison : No change from prior EKG on 03/09/18. 03/18/18 14:27 Medically cleared and accepted by psych - Scribe Statement The provider has reviewed the documentation as recorded by the Fransisco Dominguez Provider Scribe Attestation: All medical record entries made by the Scribe were at my direction and personally dictated by me. I have reviewed the chart and agree that the record accurately reflects my personal performance of the history, physical exam, medical decision making, and the department course for this patient. I have also personally directed, reviewed, and agree with the discharge instructions and disposition. Disposition/Present on Arrival - Present on Arrival Any Indicators Present on Arrival: No History of DVT/PE: No History of Uncontrolled Diabetes: No Urinary Catheter: No History of Decub. Ulcer: No History Surgical Site Infection Following: None - Disposition Have Diagnosis and Disposition been Completed?: Yes Diagnosis: OCD (obsessive compulsive disorder) Disposition: HOSPITALIZED Disposition Time: 14:28 Patient Plan: Admission Patient Problems: Current Active Problems Problem Status Onset OCD (obsessive compulsive disorder) Chronic Condition: FAIR
[2018-03-18 12:49] LABS: BASO # 0.03 K/mm3 (0.0-2.0); BASO % 0.6 % (0.0-3.0); EOS # 0.1 (0.0-0.7); GRAN # 3.19 (1.4-6.5); GRAN % 66.9 % (50.0-68.0); HEMOGLOBIN 14.2 g/dL (14.0-18.0); LYMPH # 1.1 (1.2-3.4); LYMPH % 23.3 % (22.0-35.0); MEAN CELL VOLUME 88.7 fl (80.0-105.0); MEAN CORPUSCULAR HEMOGLOBIN 30.3 pg (25.0-35.0); MEAN CORPUSCULAR HGB CONC 34.2 g/dl (31.0-37.0); MEAN PLATELET VOLUME 9.3 fl (7.0-11.0); MONO # 0.4 (0.1-0.6); MONO % 8.2 % (1.0-6.0); RBC 4.68 10^6/uL (3.5-6.1); RED CELL DISTRIBUTION WIDTH 14.4 % (11.5-14.5); WHITE BLOOD COUNT 4.8 10^3/uL (4.5-11.0)
[2018-03-18 13:00] LABS: ALB/GLOB RATIO 1.3 (1.1-1.8); ALBUMIN 4.7 g/dL (3.0-4.8); ALT/SGPT 30 U/L (7-56); AST/SGOT 36 U/L (17-59); BLOOD UREA NITROGEN 13 mg/dL (7-21); CALCIUM 9.4 mg/dL (8.4-10.5); GFR NON-AFRICAN AMERICAN > 60
[2018-03-18 13:01] LABS: URINE APPEARANCE CLEAR (CLEAR); URINE BILIRUBIN NEGATIVE (NEGATIVE); URINE BLOOD NEGATIVE (NEGATIVE); URINE COLOR YELLOW (YELLOW); URINE GLUCOSE (UA) NEGATIVE (NEGATIVE); URINE LEUKOCYTE ESTERASE NEGATIVE Leu/uL (NEGATIVE); URINE PROTEIN NEGATIVE mg/dL (<30 mg/dL); URINE UROBILINOGEN 0.2 E.U./dL (<1 E.U./dL)
[2018-03-18 13:20] LABS: BENZODIAZEPINES, UR NEGATIVE (NEGATIVE)
[2018-03-18 13:28] LABS: BARBITURATES, UR NEGATIVE (NEGATIVE); OPIATES, UR NEGATIVE (NEGATIVE); PHENCYCLIDINE, UR NEGATIVE (NEGATIVE)
--- NOTE | 2018-03-18 14:54 | RAD ---
Date of service: 03/18/2018 HISTORY: psych COMPARISON: 03/09/2018. FINDINGS: LUNGS: The lungs are well inflated and clear. PLEURA: No pleural effusions or pneumothorax. CARDIOVASCULAR: The heart is normal in size. No aortic atherosclerotic calcification present. OSSEOUS STRUCTURES: Within normal limits for the patient's age. VISUALIZED UPPER ABDOMEN: Normal. OTHER FINDINGS: None. IMPRESSION: No active pulmonary disease.
--- NOTE | 2018-03-18 18:33 | PCM.BM ---
<Chrissy Loja - Last Filed: 03/18/18 18:29> Treatment Plan Problems - Problems identified on initial assessmt ANXIETY Date Initiated: 03/18/18 Time Initiated: 19:00 Assessment reference: NA Status: Active Priority: 1 ALTERED SLEEP Date Initiated: 03/18/18 Time Initiated: 19:00 Assessment reference: NA Status: Active Priority: 2 INEFFECTIVE COPING Date Initiated: 03/18/18 Time Initiated: 19:00 Assessment reference: NA Status: Active Priority: 3 Treatment assets and liabiliti Patient Assests: adapts well, cooperative, educated, insightful, motivated, self-reliant, ADL independent, good support system, negotiates basic needs, cognitively intact Patient Liabilities: live alone - Milieu Protocol Maintain good personal hygiene: every shift Encourage regular showers, every shift Remind patient to perform daily oral care, every shift Assist patient to perform ADL's Maintain personal safety: daily Educate patient to report safety concerns to staff, daily Monitor environment for contraband/sharps Medication safety: Monitor for expected outcome, potential side effects: daily, Assess barriers to learning: daily, Assess readiness for medication education: daily Discharge/Continuing Care - Education Needs Education Needs: Patient Medication, Patient Diagnosis/Disease Process, Patient Coping Skills, Patient Community resources, Patient Activities of Daily Living, Patient Nutrition, Patient Health Practices/Safety, Patient Personal Hygiene/Grooming, Patient Aftercare Safety Plan - Discharge Discharge Criteria: Tolerates medication w/o severe side effects, Free of Suicidal thoughts, Normal sleep pattern, Ability to care for self, Reduction of target symptoms Discharge to:: Home <Christi Lovelace - Last Filed: 03/19/18 15:45> - Diagnosis (1) OCD (obsessive compulsive disorder) Status: Chronic Interventions: 03/19/18 15:46 Psychoeducation Psychopharmacology/adjustment of medications as needed/ monitoring possible side effects Evaluate pt on daily basis Compliance with medications and follow up appointments Suicide and homicide risk assessment and prevention, coping strategies, safety plan Relapse prevention Reduction of symptoms Improve functional status Family involvement CBT, SSRI, exposure response prevention as outpatient Supportive therapy (2) Mood disorder Status: Chronic Interventions: 03/19/18 15:46 Psychoeducation Psychopharmacology/adjustment of medications as needed/ monitoring possible side effects Evaluate pt on daily basis Compliance with medications and follow up appointments Suicide and homicide risk assessment and prevention Relapse prevention Reduction of symptoms Improve functional status Family involvement As outpatient: cognitive behavioral therapy <Ruth Lima Y - Last Filed: 03/20/18 17:49> Family Contact Family involvement: Family/SO is involved Family contact: Patient agrees to contact Family contact name: Tonja Key(sister) Family contacted how many times per week?: 2 - Outside Agency Supportive Housing Care involvment: Following patient during stay, Information-sharing Agency contact name: Vinny Kinney, disease case manager rn
--- NOTE | 2018-03-18 20:27 | CARD ---
APPROVED REPORT Date of service: 03/18/2018 EKG Measurement Heart [id number] [place] [id number] [id number] <Conclusion> Sinus tachycardia with occasional premature ventricular complexes Otherwise normal ECG
[2018-03-19 08:47] LABS: HDL CHOLESTEROL 71 mg/dL (29-60)
[2018-03-19 08:58] LABS: LDL CHOLESTEROL 68 mg/dL (0-129)
[2018-03-19 09:02] LABS: FREE T4 0.7 ng/dL (0.78-2.19)
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
[2018-03-19] MEDS: CLOMIPRAMINE 50 MG PO SCH (21:16)
--- NOTE | 2018-03-20 06:52 | CP.PCM.CON ---
<Mattie Pro - Last Filed: 03/20/18 10:22> History of Present Illness - History of Present Illness History of Present Illness: Pgy3 Medicine consult note for Dr. Faye 57yo male pmhx seizures, depression, OCD, asthma, arthritis, HLD, GERD, TMJ, and constipation presented to [facility] ER for worsening anxiety. Patient was admitted to the psych floor for further management and medicine was consulted for management of chronic issues. Patient reported he sees Dr. To who he saw 1 month ago for a routine visit and sees Dr. Christy neurology for management of his seizures; patient's Keppra was recetly titrated up to 750mg po bid. His last seizure was 6mo-1year ago and patient usually experiences urinary and bowel incontinence and "tosses and turns" during an episode. Patient reports he is compliant with medications. This AM he reports feeling much better than when he first came in. He denied any acute complaints of fever, chills, headache, dizziness, chest pa in, palpitations, SOB, cough, abd pain, nausea, vomiting, diarrhea, urinary complaints, pain/swelling in his legs bilaterally. Patient denied any auditory/visual hallucinations and denied any suicidal/homicidal ideations. Patient did admit to constipation and not having had a bowel movement in a cou ple days. 12point ROS reviewed and negative unless otherwise aforementioned above PMHx: seizures, depression, OCD, asthma, arthritis, HLD, GERD, and constipation, TMJ PSurgHx: left knee replacement surgery on August 14, 2017 Meds: pls see chart ALL: Ibuprofen, PCN, amoxapine SocHx: denied EtOH, drugs, tobacco use. No children and not . FamHx: Brother has OCD. No history of suicidal attempts in the family. PMD: Dr To Neuro: Dr Christy Review of Systems - Review of Systems All systems: reviewed and no additional remarkable complaints except Review of Systems: as per HPI Past Patient History - Infectious Disease Hx of Infectious Diseases: None - Tetanus Immunizations Tetanus Immunization: Up to Date - Past Social History Smoking Status: Never Smoked - CARDIAC Hx Cardiac Disorders: No Hx Hypertension: No - PULMONARY Hx Respiratory Disorders: Yes Hx Asthma: Yes Hx Sleep Apnea: Yes Hx Tuberculosis: No - NEUROLOGICAL Hx Neurological Disorder: Yes HX Cerebrovascular Accident: No Hx Seizures: Yes - HEENT Hx HEENT Problems: Yes Other/Comment: Inner ear vestibular disfunction - RENAL Hx Chronic Kidney Disease: No - ENDOCRINE/METABOLIC Hx Endocrine Disorders: No - HEMATOLOGICAL/ONCOLOGICAL Hx Blood Disorders: No Hx Cancer: No - INTEGUMENTARY Hx Dermatological Problems: No - MUSCULOSKELETAL/RHEUMATOLOGICAL Hx Musculoskeletal Disorders: Yes Hx Arthritis: Yes - GASTROINTESTINAL Hx Gastrointestinal Disorders: Yes Hx Gastroesophageal Reflux: Yes - GENITOURINARY/GYNECOLOGICAL Hx Genitourinary Disorders: No Hx Sexually Transmitted Disorders: No - PSYCHIATRIC Hx Anxiety: Yes Hx Depression: Yes - SURGICAL HISTORY Hx Surgeries: Yes Hx Orthopedic Surgery: Yes (Left knee 08/2017) Other/Comment: L testicular surgery. Nasal surgery for sleep apnea - ANESTHESIA Hx Anesthesia: Yes Hx Anesthesia Reactions: No Hx Malignant Hyperthermia: No Has any member of the family had a problem w/ anesthesia?: No Meds Allergies/Adverse Reactions: Allergies Allergy/AdvReac Type Severity Reaction Status Date / Time ibuprofen [From Motrin] Allergy RASH Verified 03/19/18 00:33 Penicillins Allergy SWELLING Verified 03/19/18 00:33 amoxapine AdvReac ANAPHYLAXIS Verified 03/19/18 00:33 - Medications Medications: Current Medications Clonazepam (Klonopin) 2 mg PO BID [facility]; Protocol Last Admin: 03/19/18 15:48 Dose: 2 mg Clonazepam (Klonopin) 2 mg PO HS [facility]; Protocol Last Admin: 03/19/18 21:18 Dose: 2 mg Fluoxetine HCl (Prozac) 30 mg PO BID [facility] Last Admin: 03/19/18 15:47 Dose: 30 mg Gabapentin (Neurontin) 600 mg PO QID [facility]; Protocol Last Admin: 03/19/18 21:17 Dose: 600 mg Home Med (Home Med) 0 unit PO HS [facility] Last Admin: 03/19/18 21:16 Dose: 1 unit Lorazepam (Ativan) 2 mg PO Q6H PRN; Protocol PRN Reason: Anxiety Lorazepam (Ativan) 2 mg IM Q6H PRN; Protocol PRN Reason: Anxiety Risperidone (Risperdal Tab) 1 mg PO BID [facility]; Protocol Last Admin: 03/19/18 15:48 Dose: 1 mg Zolpidem Tartrate (Ambien) 5 mg PO HS PRN; Protocol PRN Reason: Insomnia Physical Exam - Constitutional Appears: Non-toxic, No Acute Distress - Head Exam Head Exam: ATRAUMATIC, NORMAL INSPECTION, NORMOCEPHALIC - Eye Exam Eye Exam: EOMI, Normal appearance, PERRL. absent: Conjunctival injection, Scleral icterus Pupil Exam: NORMAL ACCOMODATION - ENT Exam ENT Exam: Mucous Membranes Moist - Neck Exam Neck exam: Positive for: Full Rom, Normal Inspection. Negative for: Lymphadenopathy - Respiratory Exam Respiratory Exam: Clear to Auscultation Bilateral, NORMAL BREATHING PATTERN. absent: Accessory Muscle Use, Rales, Rhonchi, Wheezes, Respiratory Distress - Cardiovascular Exam Cardiovascular Exam: REGULAR RHYTHM, +S1, +S2. absent: Systolic Murmur - GI/Abdominal Exam GI & Abdominal Exam: Normal Bowel Sounds, Soft. absent: Firm, Guarding, Rigid, Tenderness - Rectal Exam Rectal Exam: Deferred - Extremities Exam Extremities exam: Positive for: normal capillary refill, normal inspection, pedal pulses present. Negative for: pedal edema, tenderness - Back Exam Back exam: absent: tenderness - Neurological Exam Neurological exam: Alert, CN II-XII Intact, Oriented x3 - Psychiatric Exam Psychiatric exam: Anxious - Skin Skin Exam: Dry, Intact Results - Vital Signs Recent Vital Signs: Last Vital Signs Temp 97.3 F L 03/19/18 07:02 Pulse 93 H 03/19/18 16:00 Resp 20 03/19/18 07:02 BP 138/90 03/19/18 16:00 Pulse Ox 96 03/18/18 15:45 - Labs Result Diagrams: 03/20/18 08:10 03/20/18 08:10 Labs: Laboratory Results - last 24 hr 03/19/18 03/19/18 03/19/18 08:15 08:15 08:15 Triglycerides 55 Cholesterol 144 LDL Cholesterol Direct 68 HDL Cholesterol 71 H Free T4 0.70 L TSH 3rd Generation 3.30 RPR Nonreactive Assessment & Plan - Assessment and Plan (Free Text) Assessment: -OCD -Anxiety -Depression -Constipation -Seizures- chronic -Asthma- chronic -Arthritis- controlled -Hyperlipidemia- controlled -GERD- chronic -TMJ- resolved Plan: Patient doing well this AM and was seen sitting up in his chair in the TV room. Acute issues of OCD, anxiety, and depression being managed as per psych and patient feels like he is improving. Patient started on colace and miralax for constipation. In light of patient's keppra recently being adjusted by outpatient neurology, will order a Keppra level and follow up. Patient started on home Keppra 750 bid and will adjust with results of keppra level. Patient started on as needed xopenex prn for asthma and avdair q12 scheduled. No acute complaints at this time of wheezing or dyspnea. Topical nystatin ordered for groin. Patient's lipid panel reviewed and patient started on lipitor. Patient did complain of some reflux and GI ppx has been added to medications. AM labs ordered- will f/u. Continue current management as per psych and medicine will follow at this time. Discussed with Dr. Yunier Pro PGY3 <John Faye S - Last Filed: 03/20/18 19:53> Meds - Medications Medications: Current Medications Atorvastatin Calcium (Lipitor) 20 mg PO DIN [facility] Last Admin: 03/20/18 17:39 Dose: 20 mg Clonazepam (Klonopin) 2 mg PO BID [facility]; Protocol Last Admin: 03/20/18 15:46 Dose: 2 mg Clonazepam (Klonopin) 2 mg PO HS [facility]; Protocol Last Admin: 03/19/18 21:18 Dose: 2 mg Docusate Sodium (Colace) 100 mg PO BID [facility] Last Admin: 03/20/18 15:47 Dose: 100 mg Famotidine (Pepcid) 20 mg PO 1000,2200 [facility] Last Admin: 03/20/18 10:35 Dose: 20 mg Fluoxetine HCl (Prozac) 30 mg PO BID [facility] Last Admin: 03/20/18 15:45 Dose: 30 mg Gabapentin (Neurontin) 600 mg PO QID [facility]; Protocol Last Admin: 03/20/18 18:19 Dose: 600 mg Home Med (Home Med) 0 unit PO HS [facility] Last Admin: 03/19/18 21:16 Dose: 1 unit Levalbuterol HCl (Xopenex) 0.63 mg IH TIDRESP PRN PRN Reason: Wheezing Levetiracetam (Keppra) 750 mg PO BID [facility] Last Admin: 03/20/18 15:44 Dose: 750 mg Lorazepam (Ativan) 2 mg PO Q6H PRN; Protocol PRN Reason: Anxiety Lorazepam (Ativan) 2 mg IM Q6H PRN; Protocol PRN Reason: Anxiety Nystatin (Mycostatin Cream) 0 ea TOP TID [facility] Last Admin: 03/20/18 17:39 Dose: 1 cre Polyethylene Glycol (Miralax) 17 gm PO BID [facility] Last Admin: 03/20/18 17:39 Dose: 17 gm Risperidone (Risperdal Tab) 1 mg PO BID [facility]; Protocol Last Admin: 03/20/18 17:39 Dose: 1 mg Fluticasone/Salmeterol (Advair Diskus 100/50) 1 puff IH Q12 [facility] Last Admin: 03/20/18 17:40 Dose: 1 puff Zolpidem Tartrate (Ambien) 5 mg PO HS PRN; Protocol PRN Reason: Insomnia Results - Vital Signs Recent Vital Signs: Last Vital Signs Temp 98.8 F 03/20/18 07:02 Pulse 90 03/20/18 07:02 Resp 20 03/20/18 07:02 BP 121/79 03/20/18 07:02 Pulse Ox 96 03/18/18 15:45 - Labs Result Diagrams: 03/20/18 08:10 03/20/18 08:10 Labs: Laboratory Results - last 24 hr 03/20/18 03/20/18 08:10 08:10 WBC 6.0 D RBC 4.54 Hgb 13.7 L Hct 40.5 L MCV 89.2 MCH 30.2 MCHC 33.8 RDW 14.3 Plt Count 208 MPV 9.2 Gran % 58.3 Lymph % (Auto) 27.4 [place] % (Auto) 11.0 H Eos % (Auto) 2.8 Baso % (Auto) 0.5 Gran # 3.48 Lymph # (Auto) 1.6 [place] # (Auto) 0.7 H Eos # (Auto) 0.2 Baso # (Auto) 0.03 Sodium 139 Potassium 4.3 Chloride 103 Carbon Dioxide 27 Anion Gap 13 BUN 17 Creatinine 0.9 Est GFR ( Amer) > 60 Est GFR (Non-Af Amer) > 60 Random Glucose 101 Calcium 9.0 Phosphorus 3.2 Magnesium 1.9 Total Bilirubin 0.6 AST 32 ALT 25 Alkaline Phosphatase 83 Total Protein 8.0 Albumin 4.5 Globulin 3.5 Albumin/Globulin Ratio 1.3 Assessment & Plan - Assessment and Plan (Free Text) Plan: The patient was seen and examined by me. I reviewed the note of the faculty i on call medical assistant and agree with the assessment and plan. I have reviewed the medications and the last labs. Pt is admitted to the hospital for OCD and anxiety. I have been asked to evaluate for constipation, Asthma and Dyslipidemia. The pt's home meds were reviewed. He is going to be on Advair instead of Breo. Breo is not on formulary. Pt will be placed on Miralax for constipation. Pt is on Lipitor for dyslipidemia. Pt is able to ambulate.
[2018-03-20] MEDS ORDERED: POLYETHYLENE GLYCOL 3350 17 GM/Dose PACKET PO ONE (07:47)
[2018-03-20] MEDS ORDERED: Levalbuterol 0.63 MG/3 ML Inhal Soln UD IH PRN (07:49)
[2018-03-20 08:25] LABS: BASO # 0.03 K/mm3 (0.0-2.0); BASO % 0.5 % (0.0-3.0); EOS # 0.2 (0.0-0.7); EOS % 2.8 % (1.5-5.0); GRAN # 3.48 (1.4-6.5); GRAN % 58.3 % (50.0-68.0); HEMOGLOBIN 13.7 g/dL (14.0-18.0); LYMPH # 1.6 (1.2-3.4); LYMPH % 27.4 % (22.0-35.0); MEAN CELL VOLUME 89.2 fl (80.0-105.0); MEAN CORPUSCULAR HEMOGLOBIN 30.2 pg (25.0-35.0); MEAN CORPUSCULAR HGB CONC 33.8 g/dl (31.0-37.0); MEAN PLATELET VOLUME 9.2 fl (7.0-11.0); MONO # 0.7 (0.1-0.6); RBC 4.54 10^6/uL (3.5-6.1); RED CELL DISTRIBUTION WIDTH 14.3 % (11.5-14.5)
[2018-03-20 08:38] LABS: ALB/GLOB RATIO 1.3 (1.1-1.8); ALBUMIN 4.5 g/dL (3.0-4.8); ALT/SGPT 25 U/L (7-56); AST/SGOT 32 U/L (17-59); BLOOD UREA NITROGEN 17 mg/dL (7-21); GFR NON-AFRICAN AMERICAN > 60
[2018-03-20] MEDS: Nystatin 100,000 Units/gm Cream(15 gm) TOP SCH ×2 (13:10→17:39)
--- NOTE | 2018-03-20 15:11 | PCM.PYCHPN ---
Psychiatric Progress Note - Psychiatric Progress Note Patient seen today, length of contact: 30 minutes Patient Chief Complaint: "I feel little better, anxiety is better controlled." Problems Identified/Issues Discussed: Suicide/ homicide prevention, past psychiatric h/o, current psychiatric symptoms, medical problems, risk/benefits and alternatives of medications, medications compliance, coping strategies, substance abuse h/o, relapse prevention, importance of follow up with psychiatrist and therapist, discharge plan. Medical Problems: History of knee replacement surgery, dyslipidemia, please see medical team notes for more detailed information. Diagnostic Results: 03/20/18 08:10 03/20/18 08:10 Lab Results 03/20/18 08:10: Sodium 139, Potassium 4.3, Chloride 103, Carbon Dioxide 27, Anion Gap 13, BUN 17, Creatinine 0.9, Est GFR ( Amer) > 60, Est GFR (Non- Af Amer) > 60, Random Glucose 101, Calcium 9.0, Phosphorus 3.2, Magnesium 1.9, Total Bilirubin 0.6, AST 32, ALT 25, Alkaline Phosphatase 83, Total Protein 8.0, Albumin 4.5, Globulin 3.5, Albumin/Globulin Ratio 1.3 03/20/18 08:10: WBC 6.0 D, RBC 4.54, Hgb 13.7 L, Hct 40.5 L, MCV 89.2, MCH 30.2, MCHC 33.8, RDW 14.3, Plt Count 208, MPV 9.2, Gran % 58.3, Lymph % (Auto) 27.4, [place] % (Auto) 11.0 H, Eos % (Auto) 2.8, Baso % (Auto) 0.5, Gran # 3.48, Lymph # (Auto) 1.6, [place] # (Auto) 0.7 H, Eos # (Auto) 0.2, Baso # (Auto) 0.03 03/19/18 08:15: Triglycerides 55, Cholesterol 144, LDL Cholesterol Direct 68, HDL Cholesterol 71 H 03/19/18 08:15: RPR Nonreactive 03/19/18 08:15: Free T4 0.70 L, TSH 3rd Generation 3.30 03/18/18 12:50: Urine Opiates Screen Negative, Urine Methadone Screen Negative, Ur Barbiturates Screen Negative, Ur Phencyclidine Scrn Negative, Ur Amphetamines Screen Negative, U Benzodiazepines Scrn Negative, U Oth Cocaine Metabols Negative, U Cannabinoids Screen Negative 03/18/18 12:50: Urine Color Yellow, Urine Appearance Clear, Urine pH 6.0, Ur Specific [place] >= 1.030, Urine Protein Negative, Urine Glucose (UA) Negative, Urine Ketones Trace H, Urine Blood Negative, Urine Nitrate Negative, Urine Bilirubin Negative, Urine Urobilinogen 0.2, Ur Leukocyte Esterase Negative 03/18/18 12:33: Alcohol, Quantitative < 10 03/18/18 12:33: Sodium 140, Potassium 4.2, Chloride 103, Carbon Dioxide 27, Ani on Gap 14, BUN 13, Creatinine 0.9, Est GFR ( Amer) > 60, Est GFR (Non-Af Amer) > 60, Random Glucose 106, Calcium 9.4, Phosphorus 3.4, Magnesium 1.8, Total Bilirubin 0.9, AST 36, ALT 30, Alkaline Phosphatase 84, Total Protein 8.4 H, Albumin 4.7, Globulin 3.7, Albumin/Globulin Ratio 1.3 03/18/18 12:33: WBC 4.8 D, RBC 4.68, Hgb 14.2, Hct 41.5 L, MCV 88.7, MCH 30.3, MCHC 34.2, RDW 14.4, Plt Count 228, MPV 9.3, Gran % 66.9, Lymph % (Auto) 23.3, [place] % (Auto) 8.2 H, Eos % (Auto) 1.0 L, Baso % (Auto) 0.6, Gran # 3.19, Lymph # (Auto) 1.1 L, [place] # (Auto) 0.4, Eos # (Auto) 0.1, Baso # (Auto) 0.03 Vital Signs Temp Pulse Pulse Resp BP Pulse Ox 03/20/18 07:02 98.8 F 90 20 121/79 03/19/18 16:00 93 H 138/90 03/19/18 07:02 97.3 F L 81 20 124/85 03/18/18 16:35 97.7 F 99 H 99 H 18 116/80 03/18/18 15:45 98.2 F 74 18 128/86 96 03/18/18 12:24 98.3 F 85 18 156/89 H 95 DSM 5 Symptoms Update: shortly patient is 57 year old male, history of mental illness, more than 15 psychiatric admissions, currently under care of Dr. Chucho Damon, medications compliant, was admitted for worsening of his OCD symptoms, severe anxiety, inability to function, pt said that medications are not helping pt. pt had most recent appointment with March 11, but pt was not able to wait for another follow up appt and came to the hospital for help. Patient was seen at the treatment team meeting, patient presented to be alert, flat affect, mildly anxious, was keeps asking the same question again and again, but no agitation, no aggression. Patient so far tolerates medications well, no side effects observed or reported, patient reported that "I like Risperdal, I think I will continue on that". Patient reports that her anxiety is better controlled so far. As per staff patient is visible in the unit, no agitation or aggression, but patient is anxious. Patient tolerates medications well, no side effects observed or reported, aims 0, no EPS. Impression: MDD as per history Severe OCD As per history of ADHD Medication Change: Yes (risperdal was started) Medical Record Reviewed: Yes Consults ordered or reviewed: Medical consult appreciated with see Dr. Sutton's note for more detailed information Mental Status Examination - Cognitive Function Orientation: Person, Place, Situation Memory: Intact Attention: Poor Concentration: Poor Association: WNL Fund of Knowledge: WNL - Mood Mood: Depressed, Anxious - Affect Affect: Constricted - Speech Speech: Appropriate - Formal Thought Process Formal Thought Process: No Impairment - Suicidal Ideation Suicidal Ideation: No - Homicidal Ideation Homicidal Ideation: No Goal/Treatment Plan - Goal/Treatment Plan Need for Continued Stay: Remain at risks for inpatient hospitalization, Severe depression anxiety, Discharge may exacerbated symptoms, Severe functional impairment Progress Toward Problem(s) and Goals/Treatment Plan: Milieu/structure/supportive therapy Medical consult was requested SW consultation for discharge plan and social issues Med management Klonopin was increased to 2 mg twice a day and that the nighttime for anxiety Prozac was decreased from 80 mg daily to 30 mg twice a day Neurontin was increased to 600 mg 4 times a day for neuropathy as well as off label for anxiety Ambien 5 mg as needed for insomnia Risperdal 1 mg twice a day started Keppra 750 twice a day for seizures clomipramine 50 mg every night for OCD Medications were confirmed by patient pharmacy Family involvement Follow up on labs Will monitor closely Pt was educated about risk/benefits and alternatives of medications, coping strategies (safety plan, suicide prevention), relapse prevention, importance of follow up with psychiatrist and therapist, stay away from drugs/alcohol/smoking Estimated Date of D/C: 03/25/18
[2018-03-20] MEDS: POLYETHYLENE GLYCOL 3350 17 GM/Dose PACKET PO SCH (17:39)
[2018-03-20] MEDS: Fluticasone-Salmeterol 100-50mcg Diskus IH SCH (17:40)
[2018-03-20] MEDS: CLOMIPRAMINE 50 MG PO SCH (22:18)
[2018-03-21] MEDS: Fluticasone-Salmeterol 100-50mcg Diskus IH SCH ×2 (06:23→17:00)
[2018-03-21] MEDS: POLYETHYLENE GLYCOL 3350 17 GM/Dose PACKET PO SCH ×2 (08:35→16:51)
[2018-03-21] MEDS: Nystatin 100,000 Units/gm Cream(15 gm) TOP SCH ×3 (08:36→17:00)
--- NOTE | 2018-03-21 09:12 | PCM.PYCHPN ---
Psychiatric Progress Note - Psychiatric Progress Note Patient seen today, length of contact: 30 minutes Problems Identified/Issues Discussed: I reviewed assessment and met with patient in the dayroom as well as in the hallway. He is friendly and oriented x3. Grooming is good. Patient reports that he feels "much better" in that he is "no longer jumping out of my skin". He still appears anxious and repetitive but not frenetic or distressed. Patient indicates mood is improving and that it is a "good turnaround". Thought process is more organized compared to initial reports reviewed by this provider. He is tolerating his medications and denies any discomfort or pain. He has been visible on the unit and participating in groups and various unit activities. There were no behavioral issues overnight. Diagnostic Results: MDD as per history Severe OCD As per history of ADHD Medication Change: Yes (risperdal was started) Medical Record Reviewed: Yes Mental Status Examination - Cognitive Function Orientation: Person, Place, Situation Memory: Intact Attention: WNL Concentration: Poor Association: WNL Fund of Knowledge: WNL - Mood Mood: Depressed (better), Anxious - Affect Affect: Constricted, Other (anxious) - Speech Speech: Appropriate - Formal Thought Process Formal Thought Process: No Impairment - Suicidal Ideation Suicidal Ideation: No - Homicidal Ideation Homicidal Ideation: No Goal/Treatment Plan - Goal/Treatment Plan Need for Continued Stay: Remain at risks for inpatient hospitalization, Severe depression anxiety, Discharge may exacerbated symptoms, Severe functional impairment Progress Toward Problem(s) and Goals/Treatment Plan: * c/w current tx and plan * Vitals reviewed and noted below: Selected Entries 03/20/18 03/20/18 07:02 16:00 Temperature 98.8 F Pulse Rate 90 86 Respiratory 20 Rate Blood Pressure 121/79 131/78 * No new weekend lab results noted thus far Estimated Date of D/C: 03/25/18
[2018-03-21] MEDS: CLOMIPRAMINE 50 MG PO SCH (23:01)
--- NOTE | 2018-03-21 23:28 | PN ---
DATE: 03/21/2018 SUBJECTIVE: The patient is 57 years old, seen and examined, ambulatory. Walking down the [place]. Also, he has no complaints. PHYSICAL EXAMINATION: VITAL SIGNS: He is afebrile. Pulse 92, respirations 20, blood pressure 130/85. LUNGS: Bilateral fair airflow. No rhonchi or crackles. HEART: S1 and S2 audible. ABDOMEN: Soft, nontender, obese. No hepatosplenomegaly. NEUROLOGIC: He is awake, alert, oriented, ambulatory, communicative. LABORATORY DATA: WBC 6, hemoglobin 13.7, hematocrit 40, platelets of 208. Chemistries: Sodium 139, potassium 4.3, chloride 103, CO2 27, BUN 17, creatinine 0.9, blood sugar of 101. Urinalysis is unremarkable. Urine tox is negative. RPR is negative. ASSESSMENT: 1. Anxiety disorder. 2. History of seizure disorder. 3. Bronchial asthma, stable. 4. Peptic ulcer disease, stable. 5. Intermittent constipation. PLAN: The patient's MAR reviewed, seemed to be appropriate. We will continue current medications. We will follow up as needed. Wero Barriga MD
[2018-03-22] MEDS: Fluticasone-Salmeterol 100-50mcg Diskus IH SCH ×3 (04:59→21:53)
--- NOTE | 2018-03-22 09:54 | PCM.PYCHPN ---
Psychiatric Progress Note - Psychiatric Progress Note Patient seen today, length of contact: 30 minutes Problems Identified/Issues Discussed: I reviewed recent notes and met with patient in the dayroom. He remains friendly and oriented x3. Grooming is good. Patient reports that he feels "much better" and that he is "no longer jumping out of my skin". He still appears anxious and mildly repetitive but not frenetic, distressed or overtly disorganized. Patient indicates mood is improving and that it is a "complete good turnaround". Thought process is more organized compared to initial reports reviewed by this provider. He is tolerating his medications and denies any discomfort or pain. He has been visible on the unit and participating in groups and various unit activities. There were no behavioral issues over the weekend. Diagnostic Results: MDD as per history Severe OCD As per history of ADHD Medication Change: Yes (risperdal was started) Medical Record Reviewed: Yes Mental Status Examination - Cognitive Function Orientation: Person, Place, Situation Memory: Intact Attention: WNL Concentration: Poor Association: WNL Fund of Knowledge: WNL - Mood Mood: Depressed (better), Anxious - Affect Affect: Constricted, Other (anxious) - Speech Speech: Appropriate - Formal Thought Process Formal Thought Process: No Impairment - Suicidal Ideation Suicidal Ideation: No - Homicidal Ideation Homicidal Ideation: No Goal/Treatment Plan - Goal/Treatment Plan Need for Continued Stay: Remain at risks for inpatient hospitalization, Severe depression anxiety, Discharge may exacerbated symptoms, Severe functional impairment Progress Toward Problem(s) and Goals/Treatment Plan: * c/w current tx and plan * Appreciate f/u by Dr. Barriga on 03/21/18~no new recommendations, MAR appears appropriate * Vitals reviewed and noted below: 03/21/18 07:00 Temperature 97.5 F L Pulse Rate 92 H Respiratory 20 Rate Blood Pressure 130/85 * No new weekend lab results noted thus far Estimated Date of D/C: 03/25/18
[2018-03-22] MEDS: POLYETHYLENE GLYCOL 3350 17 GM/Dose PACKET PO SCH ×2 (10:20→17:19)
[2018-03-22] MEDS: Nystatin 100,000 Units/gm Cream(15 gm) TOP SCH ×3 (10:21→18:52)
--- NOTE | 2018-03-22 21:05 | PN ---
DATE: 03/22/2018 SUBJECTIVE: The patient is 57-year-old, seen and examined, complained of slight headache. He states his anxiety is much better and now, he is anxious to go home next week to get ready for holidays. PHYSICAL EXAMINATION VITAL SIGNS: He is afebrile, pulse 92, respirations 20, blood pressure 130/85. LUNGS: Bilateral fair airflow. No rhonchi or crackle. HEART: S1 and S2 audible. ABDOMEN: Soft, obese, nontender. No rebound. No guarding. NEUROLOGICAL: He is awake, alert, oriented, communicative, ambulatory. LABORATORY EXAM: Free T4 is 0.70, HDL is 71. ASSESSMENT: 1. History of anxiety disorder. 2. Hypertension. 3. Headache. 4. Peptic ulcer disease. 5. History of seizure disorder. PLAN: We will continue the patient on current medication and give him Tylenol. Case discussed with the patient's son. Wero Barriga MD
[2018-03-22] MEDS: CLOMIPRAMINE 50 MG PO SCH (21:47)
[2018-03-23] MEDS: Fluticasone-Salmeterol 100-50mcg Diskus IH SCH ×2 (05:13→17:46)
[2018-03-23] MEDS: POLYETHYLENE GLYCOL 3350 17 GM/Dose PACKET PO SCH ×2 (10:00→17:34)
[2018-03-23] MEDS: Nystatin 100,000 Units/gm Cream(15 gm) TOP SCH ×3 (10:04→17:46)
--- NOTE | 2018-03-23 14:56 | PCM.PYCHPN ---
Psychiatric Progress Note - Psychiatric Progress Note Patient seen today, length of contact: 30 minutes Patient Chief Complaint: "I feel little better, anxiety is better controlled." Problems Identified/Issues Discussed: Suicide/ homicide prevention, past psychiatric h/o, current psychiatric symptoms, medical problems, risk/benefits and alternatives of medications, medications compliance, coping strategies, substance abuse h/o, relapse prevention, importance of follow up with psychiatrist and therapist, discharge plan. Medical Problems: History of knee replacement surgery, dyslipidemia, please see medical team notes for more detailed information. Diagnostic Results: 03/20/18 08:10 03/20/18 08:10 Lab Results 03/20/18 08:10: Sodium 139, Potassium 4.3, Chloride 103, Carbon Dioxide 27, Anion Gap 13, BUN 17, Creatinine 0.9, Est GFR ( Amer) > 60, Est GFR (Non- Af Amer) > 60, Random Glucose 101, Calcium 9.0, Phosphorus 3.2, Magnesium 1.9, Total Bilirubin 0.6, AST 32, ALT 25, Alkaline Phosphatase 83, Total Protein 8.0, Albumin 4.5, Globulin 3.5, Albumin/Globulin Ratio 1.3 03/20/18 08:10: WBC 6.0 D, RBC 4.54, Hgb 13.7 L, Hct 40.5 L, MCV 89.2, MCH 30.2, MCHC 33.8, RDW 14.3, Plt Count 208, MPV 9.2, Gran % 58.3, Lymph % (Auto) 27.4, [place] % (Auto) 11.0 H, Eos % (Auto) 2.8, Baso % (Auto) 0.5, Gran # 3.48, Lymph # (Auto) 1.6, [place] # (Auto) 0.7 H, Eos # (Auto) 0.2, Baso # (Auto) 0.03 03/19/18 08:15: Triglycerides 55, Cholesterol 144, LDL Cholesterol Direct 68, HDL Cholesterol 71 H 03/19/18 08:15: RPR Nonreactive 03/19/18 08:15: Free T4 0.70 L, TSH 3rd Generation 3.30 03/18/18 12:50: Urine Opiates Screen Negative, Urine Methadone Screen Negative, Ur Barbiturates Screen Negative, Ur Phencyclidine Scrn Negative, Ur Amphetamines Screen Negative, U Benzodiazepines Scrn Negative, U Oth Cocaine Metabols Negative, U Cannabinoids Screen Negative 03/18/18 12:50: Urine Color Yellow, Urine Appearance Clear, Urine pH 6.0, Ur Specific [place] >= 1.030, Urine Protein Negative, Urine Glucose (UA) Negative, Urine Ketones Trace H, Urine Blood Negative, Urine Nitrate Negative, Urine Bilirubin Negative, Urine Urobilinogen 0.2, Ur Leukocyte Esterase Negative 03/18/18 12:33: Alcohol, Quantitative < 10 03/18/18 12:33: Sodium 140, Potassium 4.2, Chloride 103, Carbon Dioxide 27, Ani on Gap 14, BUN 13, Creatinine 0.9, Est GFR ( Amer) > 60, Est GFR (Non-Af Amer) > 60, Random Glucose 106, Calcium 9.4, Phosphorus 3.4, Magnesium 1.8, Total Bilirubin 0.9, AST 36, ALT 30, Alkaline Phosphatase 84, Total Protein 8.4 H, Albumin 4.7, Globulin 3.7, Albumin/Globulin Ratio 1.3 03/18/18 12:33: WBC 4.8 D, RBC 4.68, Hgb 14.2, Hct 41.5 L, MCV 88.7, MCH 30.3, MCHC 34.2, RDW 14.4, Plt Count 228, MPV 9.3, Gran % 66.9, Lymph % (Auto) 23.3, [place] % (Auto) 8.2 H, Eos % (Auto) 1.0 L, Baso % (Auto) 0.6, Gran # 3.19, Lymph # (Auto) 1.1 L, [place] # (Auto) 0.4, Eos # (Auto) 0.1, Baso # (Auto) 0.03 Vital Signs Temp Pulse Pulse Resp BP Pulse Ox 03/20/18 07:02 98.8 F 90 20 121/79 03/19/18 16:00 93 H 138/90 03/19/18 07:02 97.3 F L 81 20 124/85 03/18/18 16:35 97.7 F 99 H 99 H 18 116/80 03/18/18 15:45 98.2 F 74 18 128/86 96 03/18/18 12:24 98.3 F 85 18 156/89 H 95 DSM 5 Symptoms Update: shortly patient is 57 year old male, history of mental illness, more than 15 psychiatric admissions, currently under care of Dr. Chucho Damon, medications compliant, was admitted for worsening of his OCD symptoms, severe anxiety, inability to function, pt said that medications are not helping pt. pt had most recent appointment with March 11, but pt was not able to wait for another follow up appt and came to the hospital for help. Patient was seen at the dinning area, pt appeared to be calmer, pt said that he tolerates new set of medications well, denied any side effcts and none observed. pt reported that he slept better and at present moment his OCD is "moderate, not that bad". pt contracted for safety, no psychosis. As per staff patient is visible in the unit, no agitation or aggression, but patient is anxious. Patient tolerates medications well, no side effects observed or reported, aims 0, no EPS. Impression: MDD as per history Severe OCD As per history of ADHD Medication Change: Yes (risperdal increased) Medical Record Reviewed: Yes Consults ordered or reviewed: Medical consult appreciated with see Dr. Sutton's note for more detailed information Mental Status Examination - Cognitive Function Orientation: Person, Place, Situation Memory: Intact Attention: WNL Concentration: Poor Association: WNL Fund of Knowledge: WNL - Mood Mood: Depressed (better), Anxious ("it is moderate") - Affect Affect: Constricted, Other (anxious) - Speech Speech: Appropriate - Formal Thought Process Formal Thought Process: No Impairment - Suicidal Ideation Suicidal Ideation: No - Homicidal Ideation Homicidal Ideation: No Goal/Treatment Plan - Goal/Treatment Plan Need for Continued Stay: Remain at risks for inpatient hospitalization, Severe depression anxiety, Discharge may exacerbated symptoms, Severe functional impairment Progress Toward Problem(s) and Goals/Treatment Plan: Milieu/structure/supportive therapy Medical consult was requested SW consultation for discharge plan and social issues Med management Klonopin was increased to 2 mg twice a day and that the nighttime for anxiety Prozac was decreased from 80 mg daily to 30 mg twice a day Neurontin was increased to 600 mg 4 times a day for neuropathy as well as off label for anxiety Ambien 5 mg as needed for insomnia Risperdal 1 mg twice a day and night time for OCD, mood stabilization Keppra 750 twice a day for seizures clomipramine 50 mg every night for OCD Medications were confirmed by patient pharmacy Family involvement Follow up on labs Will monitor closely Pt was educated about risk/benefits and alternatives of medications, coping strategies (safety plan, suicide prevention), relapse prevention, importance of follow up with psychiatrist and therapist, stay away from drugs/alcohol/smoking Estimated Date of D/C: 03/25/18
[2018-03-23 18:42] VITALS: PULSE 90; RESP 24
--- NOTE | 2018-03-23 18:48 | PN ---
DATE: 03/23/2018 SUBJECTIVE: The patient has no complaints of any chest pain or shortness of breath. No headaches or dizziness PHYSICAL EXAMINATION VITAL SIGNS: Temperature is 98.6, pulse of 100, blood pressure is 124/88, respirations 20. GENERAL: The patient is lying in bed, flat, comfortable. HEENT: No oral lesion. Anicteric sclerae. Moist mucosa. NECK: No JVD, adenopathy, or thyromegaly. CARDIOVASCULAR: S1 and S2, regular. No murmurs, rubs, or gallops. LUNGS: Clear to auscultation bilaterally. No wheeze, rales, or rhonchi. ABDOMEN: Bowel sounds are positive, soft, nontender and nondistended. EXTREMITIES: No cyanosis, clubbing or edema. LABORATORY DATA: White count is 6, hemoglobin 13.7. Creatinine 0.9. ASSESSMENT: 1. Anxiety disorder. 2. Obsessive-compulsive disorder. 3. Hypertension. 4. Peptic ulcer disease. 5. Dyslipidemia. 6. Constipation. PLAN: The patient is currently on Xopenex as needed. He is on Tylenol as needed. He is on Neurontin for his neuropathy. He is on Prozac. The patient is on Lipitor for dyslipidemia. He is receiving Klonopin for his anxiety. He is receiving Keppra. The patient is receiving fluticasone for his asthma. He is on a regular diet. He is feeling better. He says his anxiety has improved. John Faye MD
[2018-03-23] MEDS: CLOMIPRAMINE 50 MG PO SCH (21:27)
[2018-03-24] MEDS: Fluticasone-Salmeterol 100-50mcg Diskus IH SCH (06:31)
[2018-03-24 06:32] VITALS: BP 130/86; TEMP 98.3; O2SAT 20
[2018-03-24] MEDS: Nystatin 100,000 Units/gm Cream(15 gm) TOP SCH (09:11)
[2018-03-24] MEDS: POLYETHYLENE GLYCOL 3350 17 GM/Dose PACKET PO SCH (09:12)
--- NOTE | 2018-03-24 15:08 | PCM.PYCHDC ---
Mental Status Examination - Mental Status Examination Orientation: Person, Place, Situation, Time Memory: Intact Mood: Neutral Affect: Constricted (But more reactive and mood-congruent) Attention: WNL (Much improved) Concentration: WNL (Much improved) Association: WNL Fund of Knowledge: WNL Formal Thought Process: No Impairment Description of patient's judgement and insight: Pt has improved insight into mental and medical illness, pt was compliant with medications and unit rules and regulations, pt was going to groups, was calm, cooperative, socially appropriate, no behavioral incidents, no agitation, no aggression. Psychotic Thoughts and Behaviors: Pt denied v/a/t hallucinations, denied paranoid ideations, pt does not appear to be psychotic, and thought process is goal directed. Suicidal Ideation: No Current Homicidal Ideation?: No Plan: pt adamantly denied thoughts of harming self or others denied intent or plan. Discharge Summary - Discharge Note Reason for Hospitalization: Patient was admitted to the psychiatric inpatient unit for evaluation of uncontrolled anxiety, inability to function. Please see admission note for more detailed information Psychiatric History (includes Medical, Family, Personal Hx): See HPI Laboratory Data: 03/20/18 08:10 03/20/18 08:10 Lab Results 03/20/18 08:10: Sodium 139, Potassium 4.3, Chloride 103, Carbon Dioxide 27, Anion Gap 13, BUN 17, Creatinine 0.9, Est GFR ( Amer) > 60, Est GFR (Non- Af Amer) > 60, Random Glucose 101, Calcium 9.0, Phosphorus 3.2, Magnesium 1.9, Total Bilirubin 0.6, AST 32, ALT 25, Alkaline Phosphatase 83, Total Protein 8.0, Albumin 4.5, Globulin 3.5, Albumin/Globulin Ratio 1.3 03/20/18 08:10: WBC 6.0 D, RBC 4.54, Hgb 13.7 L, Hct 40.5 L, MCV 89.2, MCH 30.2, MCHC 33.8, RDW 14.3, Plt Count 208, MPV 9.2, Gran % 58.3, Lymph % (Auto) 27.4, [place] % (Auto) 11.0 H, Eos % (Auto) 2.8, Baso % (Auto) 0.5, Gran # 3.48, Lymph # (Auto) 1.6, [place] # (Auto) 0.7 H, Eos # (Auto) 0.2, Baso # (Auto) 0.03 03/19/18 08:15: Triglycerides 55, Cholesterol 144, LDL Cholesterol Direct 68, HDL Cholesterol 71 H 03/19/18 08:15: RPR Nonreactive 03/19/18 08:15: Free T4 0.70 L, TSH 3rd Generation 3.30 03/18/18 12:50: Urine Opiates Screen Negative, Urine Methadone Screen Negative, Ur Barbiturates Screen Negative, Ur Phencyclidine Scrn Negative, Ur Amphetamines Screen Negative, U Benzodiazepines Scrn Negative, U Oth Cocaine Metabols Negative, U Cannabinoids Screen Negative 03/18/18 12:50: Urine Color Yellow, Urine Appearance Clear, Urine pH 6.0, Ur Specific [place]fe[place] >= 1.030, Urine Protein Negative, Urine Glucose (UA) Negative, Urine Ketones Trace H, Urine Blood Negative, Urine Nitrate Negative, Urine Bilirubin Negative, Urine Urobilinogen 0.2, Ur Leukocyte Esterase Negative 03/18/18 12:33: Alcohol, Quantitative < 10 03/18/18 12:33: Sodium 140, Potassium 4.2, Chloride 103, Carbon Dioxide 27, Anion Gap 14, BUN 13, Creatinine 0.9, Est GFR ( Amer) > 60, Est GFR (Non- Af Amer) > 60, Random Glucose 106, Calcium 9.4, Phosphorus 3.4, Magnesium 1.8, Total Bilirubin 0.9, AST 36, ALT 30, Alkaline Phosphatase 84, Total Protein 8.4 H, Albumin 4.7, Globulin 3.7, Albumin/Globulin Ratio 1.3 03/18/18 12:33: WBC 4.8 D, RBC 4.68, Hgb 14.2, Hct 41.5 L, MCV 88.7, MCH 30.3, MCHC 34.2, RDW 14.4, Plt Count 228, MPV 9.3, Gran % 66.9, Lymph % (Auto) 23.3, [place] % (Auto) 8.2 H, Eos % (Auto) 1.0 L, Baso % (Auto) 0.6, Gran # 3.19, Lymph # (Auto) 1.1 L, [place] # (Auto) 0.4, Eos # (Auto) 0.1, Baso # (Auto) 0.03 Vital Signs Temp Pulse Pulse Resp BP Pulse Ox 03/24/18 06:31 98.3 F 90 130/86 20 L 03/23/18 16:00 90 24 123/79 03/23/18 06:41 98.6 F 100 H 20 124/88 03/21/18 07:00 97.5 F L 92 H 20 130/85 03/21/18 06:55 97.5 F L 92 H 20 130/85 03/20/18 16:00 86 131/78 03/20/18 07:02 98.8 F 90 20 121/79 03/19/18 16:00 93 H 138/90 03/19/18 07:02 97.3 F L 81 20 124/85 03/18/18 16:35 97.7 F 99 H 99 H 18 116/80 03/18/18 15:45 98.2 F 74 18 128/86 96 03/18/18 12:24 98.3 F 85 18 156/89 H 95 Consultations:: List each consultation separately and include: 1. Reason for request. 2. Findings. 3. Follow-up Consultations: Medical consult appreciated with see Dr. Sutton's note for more detailed information Summary of Hospital Course include:: 1. Description of specific treatment plan utilized for patients during their course of treatmen. 2. Summarize the time- course for resolution of acute symptoms and/or regressed behaviors. 3. Describe issues identified and worked on during hospitalization. 4. Describe medication utilized. 5. Describe medical problems identified and treated. 6. Reassessment of suicide risk Summary of Hospital Course: shortly patient is 57 year old male, history of mental illness, more than 15 psychiatric admissions, currently under care of Dr. Chucho Damon, medications compliant, was admitted for worsening of his OCD symptoms, severe anxiety, inability to function, pt said that medications are not helping pt. pt had most recent appointment with March 11, but pt was not able to wait for another follow up appt and came to the hospital for help. last admission pt was heating multiple potholes, and was afraid that he was hitting people. 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 Patient attributes those symptoms to financial stressors, hectic living situation, patient was sued by physician in [place] on because patient was not paying his bills Patient said "my OCD is out of control, I am keep washing my hands for 100s of times a day, have obsessions and compulsions". patient reported that he is obsessive-compulsive symptoms are out of control, patient reported that yesterday he was not tolerated the new longer, patient called his private psychiatrist who referred patient to the emergency room here in [place] on for admission. Please see admission note for more detailed information 03/18/18 12:33 03/18/18 12:33 Lab Results 03/19/18 08:15: Triglycerides 55, Cholesterol 144, LDL Cholesterol Direct 68, HDL Cholesterol 71 H 03/19/18 08:15: Free T4 0.70 L, TSH 3rd Generation 3.30 03/18/18 12:50: Urine Opiates Screen Negative, Urine Methadone Screen Negative, Ur Barbiturates Screen Negative, Ur Phencyclidine Scrn Negative, Ur Amphetamines Screen Negative, U Benzodiazepines Scrn Negative, U Oth Cocaine Metabols Negative, U Cannabinoids Screen Negative 03/18/18 12:50: Urine Color Yellow, Urine Appearance Clear, Urine pH 6.0, Ur Specific [place]fe[place] >= 1.030, Urine Protein Negative, Urine Glucose (UA) Negative, Urine Ketones Trace H, Urine Blood Negative, Urine Nitrate Negative, Urine Bilirubin Negative, Urine Urobilinogen 0.2, Ur Leukocyte Esterase Negative 03/18/18 12:33: Alcohol, Quantitative < 10 03/18/18 12:33: Sodium 140, Potassium 4.2, Chloride 103, Carbon Dioxide 27, Anion Gap 14, BUN 13, Creatinine 0.9, Est GFR ( Amer) > 60, Est GFR (Non- Af Amer) > 60, Random Glucose 106, Calcium 9.4, Phosphorus 3.4, Magnesium 1.8, Total Bilirubin 0.9, AST 36, ALT 30, Alkaline Phosphatase 84, Total Protein 8.4 H, Albumin 4.7, Globulin 3.7, Albumin/Globulin Ratio 1.3 03/18/18 12:33: WBC 4.8 D, RBC 4.68, Hgb 14.2, Hct 41.5 L, MCV 88.7, MCH 30.3, MCHC 34.2, RDW 14.4, Plt Count 228, MPV 9.3, Gran % 66.9, Lymph % (Auto) 23.3, [place] % (Auto) 8.2 H, Eos % (Auto) 1.0 L, Baso % (Auto) 0.6, Gran # 3.19, Lymph # (Auto) 1.1 L, [place] # (Auto) 0.4, Eos # (Auto) 0.1, Baso # (Auto) 0.03 Vital Signs Temp Pulse Pulse Resp BP Pulse Ox 03/19/18 07:02 97.3 F L 81 20 124/85 03/18/18 16:35 97.7 F 99 H 99 H 18 116/80 03/18/18 15:45 98.2 F 74 18 128/86 96 03/18/18 12:24 98.3 F 85 18 156/89 H 95 Over the course of this hospitalization patient was stabilized on the following medications: Klonopin was increased to 2 mg twice a day and that the nighttime for anxiety Prozac was resumed 80 mg daily which was divided into 2 doses Neurontin was increased to 600 mg 4 times a day for neuropathy as well as off label for anxiety Ambien 5 mg as needed for insomnia, but that was discontinued because patient had" night sleep Risperdal 1 mg twice a day and night time for OCD, mood stabilization Keppra 750 twice a day for seizures clomipramine 50 mg every night for OCD Patient tolerated medications well, no side effects observed or reported, aims 0, no EPS. Over the course of this hospitalization pt was attending groups, pt also had medication management, had therapeutic milieu. Overall pt improved significantly, pt's affect became brighter, pt was less depressed, has realistic future oriented plans, pt also does not appear to be psychotic, or anxious, pt was socially appropriate, no behavioral issues, pts insight improved as well and soon pt deemed to be ready for discharge. At the time of the discharge pt denied been depressed, denied thoughts of harming self or others, denied psychotic symptoms, and pt does not appeared to be psychotic, denied been anxious, pt is not in imminent danger to self or others, pt was referred to [facility], information about follow up appointment, time and address provided to the pt, it is patient responsibility to follow up with outpatient clinic, PMD as well as specialists (see SW note for more detailed information). In case pt will need to obtain results of studies pending at discharge pt was provided with contact information of Psychiatric Inpatient unit [phone] as well as Medical Record Department [phone]. Patient does not use any drugs, does not smoke, does not drink alcohol pt was provided with prescriptions for all of medications (please see medication reconciliation form) Pt was educated about safety plan in case of worsening of symptoms or in case of suicidal or homicidal ideation call 911 or go to the nearest ER, also was educated to take meds as prescribed and stay away from drugs, pt verbalized understanding. - Diagnosis (1) OCD (obsessive compulsive disorder) Current Visit: Yes Status: Chronic Priority: High (2) Mood disorder Current Visit: No Status: Chronic Priority: Medium - Final Diagnosis (DSM 5) Condition upon Discharge: STABLE Disposition: HOME/ ROUTINE Follow-up Treatment Plan: At the time of the discharge pt denied been depressed, denied thoughts of harming self or others, denied psychotic symptoms, and pt does not appeared to be psychotic, denied been anxious, pt is not in imminent danger to self or others, pt was referred to [facility], information about follow up appointment, time and address provided to the pt, it is patient responsibility to follow up with outpatient clinic, PMD as well as specialists (see SW note for more detailed information). In case pt will need to obtain results of studies pending at discharge pt was provided with contact information of Psychiatric Inpatient unit [phone] as well as Medical Record Department [phone]. Patient does not use any drugs, does not smoke, does not drink alcohol pt was provided with prescriptions for all of medications (please see medication reconciliation form) Pt was educated about safety plan in case of worsening of symptoms or in case of suicidal or homicidal ideation call 911 or go to the nearest ER, also was educated to take meds as prescribed and stay away from drugs, pt verbalized understanding. Prescriptions/Medication Reconciliation: Atorvastatin [Lipitor] 20 mg PO DIN #7 tab clomiPRAMINE [Anafranil] 50 mg PO HS #14 cap clonazePAM [Klonopin] 2 mg PO TID #45 tab Docusate [Colace] 100 mg PO BID #14 cap Famotidine [Pepcid] 20 mg PO 1000,2200 #14 tab Fluoxetine HCl [Prozac] 40 mg PO BID #30 capsule Fluticasone/Salmeterol 100/50 [Advair Diskus 100/50] 1 puff IH Q12 #1 puff Gabapentin [Neurontin] 600 mg PO QID #60 tab Levetiracetam [Keppra] 750 mg PO BID #30 tablet Polyethylene Glycol 3350 [Miralax] 17 gm PO BID #14 packet risperiDONE [RisperDAL Tab] 1 mg PO TID #45 tab - Smoking Cessation Smoking Cessation Medication prescribed: No Reason for not providing: Patient denied smoking - Antipsychotic Medications Pt discharged on 2 or more routine antipsychotic medications: No
== END 2018-03-24 15:14 | disposition home or self-care (01) | DRG 882 ==
LOC: ED 12:03 → ERH 14:27 → PSYC 16:34
PROVIDERS: ADMIT Psychiatry & Neurology Psychiatry; ATTEND Psychiatry & Neurology Psychiatry
DX: F42.9 Obsessive-compulsive disorder, unspecified (principal); F41.9 Anxiety disorder, unspecified; E78.5 Hyperlipidemia, unspecified; F32.9 Major depressive disorder, single episode, unspecified; F90.9 Attention-deficit hyperactivity disorder, unspecified type; G40.909 Epilepsy, unspecified, not intractable, without status epilepticus; G62.9 Polyneuropathy, unspecified; I10 Essential (primary) hypertension; J45.909 Unspecified asthma, uncomplicated; K21.9 Gastro-esophageal reflux disease without esophagitis; K27.9 Peptic ulcer, site unspecified, unspecified as acute or chronic, without hemorrhage or perforation; K59.00 Constipation, unspecified; M19.90 Unspecified osteoarthritis, unspecified site; R51 Headache; Z88.0 Allergy status to penicillin

== ENCOUNTER 2018-05-12 11:25 | Inpatient (IN) | payer MEDICARE ==
[2018-05-12 11:26] VITALS: BMI 34.0
--- NOTE | 2018-05-12 12:34 | ED PDOC ---
Arrival/HPI - General Chief Complaint: Anxiety Time Seen by Provider: 05/12/18 11:37 Historian: Patient - History of Present Illness Narrative History of Present Illness (Text): 05/12/18 12:27 58 year old male, whose past medical history includes arthritis, anxiety, depression, asthma, nocturnal seizure disorder, left knee replacement (2017), sleep apnea, and OCD, who presents to the emergency department complaining of anxiety. Patient states he is having a hard time coping with everyday living and is dealing with stress from family and finances. He denies suicidal ideation, but states he wouldn't mind if he didn't wake up. Patient reports he has been seeing his psychiatrist frequently and has been taking his medication. He denies denies fevers, chills, headache, dizziness, chest pain, shortness of breath, dyspnea on exertion, cough, abdominal pain, nausea, vomiting, diarrhea, back pain, neck pain, or any other complaint. Time/Duration: Prior to Arrival Symptom Onset: Gradual Symptom Course: Unchanged Activities at Onset: Light Context: Home Past Medical History - Provider Review Nursing Documentation Reviewed: Yes - Infectious Disease Hx of Infectious Diseases: None - Tetanus Immunization Tetanus Immunization: Up to Date - Cardiac Hx Cardiac Disorders: No Hx Hypertension: No - Pulmonary Hx Respiratory Disorders: Yes Hx Asthma: Yes Hx Sleep Apnea: Yes Hx Tuberculosis: No - Neurological Hx Neurological Disorder: Yes HX Cerebrovascular Accident: No Hx Seizures: Yes - HEENT Hx HEENT Disorder: Yes Other/Comment: Inner ear vestibular disfunction - Renal Hx Renal Disorder: No - Endocrine/Metabolic Hx Endocrine Disorders: No - Hematological/Oncological Hx Blood Disorders: No Hx Cancer: No - Integumentary Hx Dermatological Disorder: No - Musculoskeletal/Rheumatological Hx Musculoskeletal Disorders: Yes Hx Arthritis: Yes - Gastrointestinal Hx Gastrointestinal Disorders: Yes Hx Gastroesophageal Reflux: Yes - Genitourinary/Gynecological Hx Genitourinary Disorders: No Hx Sexually Transmitted Diseases: No - Psychiatric Hx Anxiety: Yes Hx Depression: Yes Hx Substance Use: No - Surgical History Hx Orthopedic Surgery: Yes (Left knee 08/2017) Other/Comment: L testicular surgery. Nasal surgery for sleep apnea - Anesthesia Hx Anesthesia: Yes Hx Anesthesia Reactions: No Hx Malignant Hyperthermia: No - Suicidal Assessment Feels Threatened In Home Enviroment: No Family/Social History - Physician Review Nursing Documentation Reviewed: Yes Family/Social History: No Known Family HX Smoking Status: Never Smoked Hx Alcohol Use: No Hx Substance Use: No Hx Substance Use Treatment: No Allergies/Home Meds Allergies/Adverse Reactions: Allergies ibuprofen [From Motrin] Allergy (Verified 03/19/18 00:33) RASH Penicillins Allergy (Verified 03/19/18 00:33) SWELLING amoxapine Adverse Reaction (Verified 03/19/18 00:33) ANAPHYLAXIS Home Medications: Home Meds Medication Instructions Recorded Confirmed Fluoxetine HCl [Prozac] 40 mg PO BID 05/12/18 05/12/18 Lubiprostone [Amitiza] 24 mcg PO BID 05/12/18 05/12/18 [id number] Ethyl Esters 1 GM 1 gm PO TID 05/12/18 05/12/18 [Lovaza] Pilocarpine [Salagen] 5 mg PO BID 05/12/18 05/12/18 Ranitidine HCl [Acid [employer]er] 150 mg PO BID 05/12/18 05/12/18 Risperidone [Risperdal M-TAB] 1 mg PO TID 05/12/18 05/12/18 Review of Systems - Physician Review All systems were reviewed & negative as marked: Yes - Review of Systems Constitutional: absent: Fevers Respiratory: absent: SOB, Cough Cardiovascular: absent: Chest Pain Gastrointestinal: absent: Abdominal Pain, Diarrhea, Nausea, Vomiting Genitourinary Male: absent: Dysuria Musculoskeletal: absent: Back Pain, Neck Pain Neurological: absent: Headache, Dizziness Physical Exam Vital Signs Reviewed: Yes Vital Signs Temp Pulse Resp BP Pulse Ox 05/12/18 11:26 98.9 F 107 H 18 134/81 95 Temperature: Afebrile Blood Pressure: Normal Pulse: Tachycardic Respiratory Rate: Normal Appearance: Positive for: Well-Appearing, Non-Toxic, Comfortable Pain Distress: None Mental Status: Positive for: Alert and Oriented X 3 - Systems Exam Head: Present: Atraumatic, Normocephalic Pupils: Present: PERRL Extroacular Muscles: Present: EOMI Conjunctiva: Present: Normal Mouth: Present: Moist Mucous Membranes Neck: Present: Normal Range of Motion Respiratory/Chest: Present: Clear to Auscultation, Good Air Exchange. No: Respiratory Distress, Accessory Muscle Use Cardiovascular: Present: Regular Rate and Rhythm, Normal S1, S2. No: Murmurs Abdomen: No: Tenderness, Distention, Peritoneal Signs Back: Present: Normal Inspection Upper Extremity: Present: Normal Inspection. No: Cyanosis, Edema Lower Extremity: Present: Normal Inspection. No: Edema Neurological: Present: GCS=15, CN II-XII Intact, Speech Normal Skin: Present: Warm, Dry, Normal Color. No: Rashes Psychiatric: Present: Alert, Oriented x 3, Normal Insight, Normal Concentration, Anxious Medical Decision Making ED Course and Treatment: Impression: 58 year old male who presents to the emergency department complaining of anxiety. No meningeal signs. Normal neuro exam. Pt in NAD. No complaints of trauma. Lungs CTA b/l. No rashes. Pt noted to have signs of depression on history: states he is low feeling low energy and depressed. Denies any SI or HI or hallucinations. Denies OD. Plan: -- Labs - Urinalysis -- Reassess and disposition Prior Visits: Notes and results from previous visits were reviewed. Progress Notes: 05/12/18 13:21 05/12/18 14:26 +UTI on UA. will rx. Pt denies any penile pain or rashes. No hx of STDS. accepted by Dr. Barraza pending medical clearance pt in NAD 05/12/18 15:07 CXR reviewed by radiologist, shows no active disease. 05/12/18 15:13 labs reviewed. Medically clear 05/12/18 15:34 EKG 111, sinus tachy, no stemi - Lab Interpretations I have reviewed the lab results: Yes - Scribe Statement The provider has reviewed the documentation as recorded by the Fransisco Gordon Provider Scribe Attestation: All medical record entries made by the Fransisco were at my direction and personally dictated by me. I have reviewed the chart and agree that the record accurately reflects my personal performance of the history, physical exam, medical decision making, and the department course for this patient. I have also personally directed, reviewed, and agree with the discharge instructions and disposition. Disposition/Present on Arrival - Present on Arrival Any Indicators Present on Arrival: No History of DVT/PE: No History of Uncontrolled Diabetes: No Urinary Catheter: No History of Decub. Ulcer: No History Surgical Site Infection Following: None - Disposition Have Diagnosis and Disposition been Completed?: Yes Diagnosis: Depression, UTI (urinary tract infection) Disposition Time: 14:13 Patient Problems: Current Active Problems Problem Status Onset Depression Acute UTI (urinary tract infection) Acute Condition: GOOD Discharge Instructions (ExitCare): Depression Forms: [facility] ([place])
[2018-05-12 13:04] LABS: BASO # 0.03 K/mm3 (0.0-2.0); BASO % 0.5 % (0.0-3.0); EOS # 0.1 (0.0-0.7); EOS % 0.9 % (1.5-5.0); HEMOGLOBIN 13.6 g/dL (14.0-18.0); LYMPH # 1.2 (1.2-3.4); LYMPH % 18.5 % (22.0-35.0); MEAN CELL VOLUME 88.9 fl (80.0-105.0); MEAN CORPUSCULAR HEMOGLOBIN 30.2 pg (25.0-35.0); MEAN PLATELET VOLUME 9.3 fl (7.0-11.0); MONO # 0.5 (0.1-0.6); MONO % 6.9 % (1.0-6.0); RBC 4.5 10^6/uL (3.5-6.1); RED CELL DISTRIBUTION WIDTH 13.6 % (11.5-14.5); WHITE BLOOD COUNT 6.6 10^3/uL (4.5-11.0)
[2018-05-12 14:05] LABS: URINE BILIRUBIN NEGATIVE (NEGATIVE); URINE BLOOD NEGATIVE (NEGATIVE); URINE GLUCOSE (UA) NEGATIVE (NEGATIVE); URINE LEUKOCYTE ESTERASE TRACE Leu/uL (NEGATIVE); URINE PROTEIN TRACE mg/dL (<30 mg/dL); URINE UROBILINOGEN 0.2 E.U./dL (<1 E.U./dL)
[2018-05-12 14:09] LABS: URINE APPEARANCE CLEAR (CLEAR); URINE COLOR YELLOW (YELLOW)
[2018-05-12 14:12] LABS: URINE EPITHELIAL CELLS 0 - 2 /hpf (0-5); URINE RBC 0 - 2 /hpf (0-2)
[2018-05-12 14:13] LABS: URINE AMORPHOUS SEDIMENT FEW /hpf; URINE BACTERIA MOD /hpf
--- NOTE | 2018-05-12 15:01 | RAD ---
Date of service: 05/12/2018 HISTORY: med clear COMPARISON: 03/18/2018 FINDINGS: LUNGS: No active pulmonary disease. PLEURA: No significant pleural effusion identified, no pneumothorax apparent. CARDIOVASCULAR: No aortic atherosclerotic calcification present. Normal cardiac size. No pulmonary vascular congestion. OSSEOUS STRUCTURES: No significant abnormalities. VISUALIZED UPPER ABDOMEN: Normal. OTHER FINDINGS: None. IMPRESSION: No active disease.
[2018-05-12 15:06] LABS: BENZODIAZEPINES, UR NEGATIVE (NEGATIVE)
[2018-05-12 15:07] LABS: ALB/GLOB RATIO 1.2 (1.1-1.8); ALBUMIN 4.7 g/dL (3.0-4.8); ALT/SGPT 16 U/L (7-56); AST/SGOT 39 U/L (17-59); BLOOD UREA NITROGEN 17 mg/dL (7-21); CALCIUM 9.6 mg/dL (8.4-10.5); GFR NON-AFRICAN AMERICAN > 60
[2018-05-12 15:09] LABS: ACETAMINOPHEN < 10.0 ug/ml (10.0-20.0); SALICYLATE < 1 mg/dL (2.0-20.0)
[2018-05-12 15:13] LABS: BARBITURATES, UR NEGATIVE (NEGATIVE); OPIATES, UR NEGATIVE (NEGATIVE); PHENCYCLIDINE, UR NEGATIVE (NEGATIVE)
[2018-05-12 15:33] VITALS: O2SAT 97
[2018-05-12] MEDS ORDERED: Alum-Mag Hydrox-Simethicone Susp (30 mL) PO PRN (16:49)
[2018-05-12] MEDS ORDERED: Magnesium Hydroxide Susp 30 ml UD PO PRN (16:49)
--- NOTE | 2018-05-12 17:25 | PCM.BM ---
<Chrissy Loja - Last Filed: 05/12/18 17:21> Treatment Plan Problems - Problems identified on initial assessmt INEFFECTIVE INDV COPING Date Initiated: 05/12/18 Time Initiated: 17:00 Assessment reference: NA Status: Active Priority: 1 HOPELESS/HELPLESS Date Initiated: 05/12/18 Time Initiated: 17:00 Assessment reference: NA Status: Active Priority: 2 FEELING WORTHLESS Date Initiated: 05/12/18 Time Initiated: 17:00 Assessment reference: NA Status: Active Priority: 3 SOCIAL ISOLATION Date Initiated: 05/12/18 Time Initiated: 17:00 Assessment reference: NA Status: Active Priority: 4 Treatment assets and liabiliti Patient Assests: adapts well, cooperative, educated, insightful, motivated, self-reliant, ADL independent, good support system, negotiates basic needs, cognitively intact Patient Liabilities: live alone, poor support system, other (HOUSING PROBLEM) - Milieu Protocol Maintain good personal hygiene: every shift Encourage regular showers, every shift Remind patient to perform daily oral care, every shift Assist patient to perform ADL's Maintain personal safety: daily Educate patient to report safety concerns to staff, daily Monitor environment for contraband/sharps Medication safety: Monitor for expected outcome, potential side effects: daily, Assess barriers to learning: daily, Assess readiness for medication education: daily Discharge/Continuing Care - Education Needs Education Needs: Patient Medication, Patient Diagnosis/Disease Process, Patient Coping Skills, Patient Community resources, Patient Activities of Daily Living, Patient Nutrition, Patient Health Practices/Safety, Patient Personal Hygiene/Grooming, Patient Aftercare Safety Plan - Discharge Discharge Criteria: Tolerates medication w/o severe side effects, Free of Suicidal thoughts, Normal sleep pattern, Ability to care for self, Reduction of target symptoms Discharge to:: Home <Christi Lovelace - Last Filed: 05/13/18 13:48> - Diagnosis (1) Depression Status: Acute Interventions: 05/13/18 13:49 Psychoeducation Psychopharmacology/adjustment of medications as needed/ monitoring possible side effects Evaluate pt on daily basis Compliance with medications and follow up appointments Suicide and homicide risk assessment and prevention Relapse prevention Reduction of symptoms Improve functional status Family involvement As outpatient: cognitive behavioral therapy (2) OCD (obsessive compulsive disorder) Status: Chronic Interventions: 05/13/18 13:48 Psychoeducation Psychopharmacology/adjustment of medications as needed/ monitoring possible side effects Evaluate pt on daily basis Compliance with medications and follow up appointments Suicide and homicide risk assessment and prevention, coping strategies, safety plan Relapse prevention Reduction of symptoms Improve functional status Family involvement CBT, SSRI, exposure response prevention as outpatient Supportive therapy <Ruth Lima - Last Filed: 05/13/18 15:13> Family Contact Family involvement: Family/SO is involved Family contact: Patient agrees to contact - Outside Agency [facility] Care involvment: Following patient during stay, Information-sharing Agency contact name: [facility] Agency contact number: [phone] [facility] Care involvment: Following patient during stay, Information-sharing <Shamika Toth - Last Filed: 05/14/18 16:32> Family Contact - Outside Agency [facility] Care involvment: Following patient during stay, Information-sharing Agency contact name: [facility] Agency contact number: [phone] [facility] Care involvment: Following patient during stay, Information-sharing [facility] Care involvment: Information-sharing Agency contact name: [facility] Agency contact number: [phone]
[2018-05-12] MEDS: POLYETHYLENE GLYCOL 3350 17 GM/Dose PACKET PO SCH ×2 (18:08→18:42)
[2018-05-12] MEDS: Fluticasone-Salmeterol 100-50mcg Diskus IH SCH (18:19)
[2018-05-12] MEDS ORDERED: POLYETHYLENE GLYCOL 3350 17 GM/Dose PACKET PO PRN (18:39)
--- NOTE | 2018-05-12 22:47 | CARD ---
APPROVED REPORT Date of service: 05/12/2018 EKG Measurement Heart [id number] <Conclusion> Sinus tachycardia NDSTT abnormalities- probably rate related Otherwise normal ECG
[2018-05-13] MEDS: Fluticasone-Salmeterol 100-50mcg Diskus IH SCH (05:50)
[2018-05-13 07:11] VITALS: RESP 20
[2018-05-13 07:36] LABS: HDL CHOLESTEROL 54 mg/dL (29-60)
[2018-05-13 07:47] LABS: LDL CHOLESTEROL 58 mg/dL (0-129)
--- NOTE | 2018-05-13 11:30 | CP.PCM.CON ---
<Mattie Pro - Last Filed: 05/13/18 17:05> History of Present Illness - History of Present Illness History of Present Illness: Medicine consult note for Dr. Faye 58yo male PMHx seziures, asthma, HLD, arthritis, gout, vertigo, anxiety, depression, OCD, and RUI presents with feelings of hopelessness. Medicine consulted for monitoring of chronic issues. Patient reports he is compliant with his medications. His last seizure was 6 months ago and he usually has loss of bladder incontinence and tongue biting during an episode. Patient reported he has episodes of dizziness if he turns his head too quickly or changes positions from sitting to standing too quickly. He denied any recent illness and denied any complaints of fever, chills, headache, chest pain, palpitations, SOB, cough, abd pain, nausea, vomiting, bowel/bladder complaints, swelling in his legs b/l. Patient does complain of some mild arthritic pains in his knees b/l. PMD: Dr. To Psych: Dr. Damon Neuro: Dr. Christy PMHx: seziures, asthma, HLD, arthritis, gout, vertigo, anxiety, depression, OCD, and RUI PSurgHx: L knee surgery 08/2017 Meds: pls see chart ALL: ibuprofen, PCN, amoxapine SocHx: denies Etoh/tobacco/drug use. Lives alone Famx: noncontributory Review of Systems - Review of Systems All systems: reviewed and no additional remarkable complaints except Review of Systems: as per HPI Past Patient History - Infectious Disease Hx of Infectious Diseases: None - Tetanus Immunizations Tetanus Immunization: Up to Date - Past Social History Smoking Status: Never Smoked - CARDIAC Hx Cardiac Disorders: No Hx Hypertension: No - PULMONARY Hx Respiratory Disorders: Yes Hx Asthma: Yes Hx Sleep Apnea: Yes Hx Tuberculosis: No - NEUROLOGICAL Hx Neurological Disorder: Yes HX Cerebrovascular Accident: No Hx Seizures: Yes - HEENT Hx HEENT Problems: Yes Other/Comment: Inner ear vestibular disfunction - RENAL Hx Chronic Kidney Disease: No - ENDOCRINE/METABOLIC Hx Endocrine Disorders: No - HEMATOLOGICAL/ONCOLOGICAL Hx Blood Disorders: No Hx Cancer: No - INTEGUMENTARY Hx Dermatological Problems: No - MUSCULOSKELETAL/RHEUMATOLOGICAL Hx Musculoskeletal Disorders: Yes Hx Arthritis: Yes - GASTROINTESTINAL Hx Gastrointestinal Disorders: Yes Hx Gastroesophageal Reflux: Yes - GENITOURINARY/GYNECOLOGICAL Hx Genitourinary Disorders: No Hx Sexually Transmitted Disorders: No - PSYCHIATRIC Hx Anxiety: Yes Hx Depression: Yes Hx Substance Use: No - SURGICAL HISTORY Hx Surgeries: Yes (knee replacemen left) Hx Orthopedic Surgery: Yes (Left knee 08/2017) Other/Comment: L testicular surgery. Nasal surgery for sleep apnea - ANESTHESIA Hx Anesthesia: Yes Hx Anesthesia Reactions: No Hx Malignant Hyperthermia: No Has any member of the family had a problem w/ anesthesia?: No Meds Allergies/Adverse Reactions: Allergies Allergy/AdvReac Type Severity Reaction Status Date / Time ibuprofen [From Motrin] Allergy RASH Verified 05/12/18 18:57 Penicillins Allergy SWELLING Verified 05/12/18 18:58 amoxapine AdvReac ANAPHYLAXIS Verified 05/12/18 18:59 - Medications Medications: Current Medications Acetaminophen (Tylenol 325mg Tab) 650 mg PO Q4 PRN PRN Reason: Pain, moderate (4-7) Al Hydrox/Mg Hydrox/Simethicone (Maalox Plus 30 Ml) 30 ml PO DAILY PRN PRN Reason: Upset Stomach Atorvastatin Calcium (Lipitor) 20 mg PO DIN [facility] Last Admin: 05/12/18 18:19 Dose: 20 mg Clomipramine HCl (Anafranil) 50 mg PO HS [facility] Last Admin: 05/12/18 21:15 Dose: 50 mg Clonazepam (Klonopin) 2 mg PO TID [facility]; Protocol Last Admin: 05/13/18 08:16 Dose: 2 mg Docusate Sodium (Colace) 100 mg PO BID PRN PRN Reason: Constipation Famotidine (Pepcid) 20 mg PO 1000,2200 [facility] Last Admin: 05/12/18 21:15 Dose: 20 mg Fluoxetine HCl (Prozac) 40 mg PO DAILY [facility] Last Admin: 05/13/18 08:15 Dose: 40 mg Gabapentin (Neurontin) 600 mg PO QID [facility]; Protocol Last Admin: 05/13/18 08:15 Dose: 600 mg Levetiracetam (Keppra) 750 mg PO BID [facility] Last Admin: 05/13/18 08:14 Dose: 750 mg Lorazepam (Ativan) 2 mg PO Q6 PRN; Protocol PRN Reason: Anxiety Lorazepam (Ativan) 2 mg IM Q6 PRN; Protocol PRN Reason: anxiety/agitation Magnesium Hydroxide (Milk Of Magnesia) 30 ml PO DAILY PRN PRN Reason: Constipation Polyethylene Glycol (Miralax) 17 gm PO BID PRN PRN Reason: Constipation Risperidone (Risperdal Tab) 1 mg PO AMHS [facility]; Protocol Fluticasone/Salmeterol (Advair Diskus 100/50) 1 puff IH Q12 [facility] Last Admin: 05/13/18 05:50 Dose: 1 puff Ziprasidone (Geodon Cap) 20 mg PO Q6 PRN; Protocol PRN Reason: Agitation Ziprasidone (Geodon Inj) 20 mg IM Q6 PRN; Protocol PRN Reason: Severe Agitation Zolpidem Tartrate (Ambien) 5 mg PO HS PRN; Protocol PRN Reason: Insomnia Last Admin: 05/12/18 21:15 Dose: 5 mg Physical Exam - Constitutional Appears: Non-toxic, No Acute Distress - Head Exam Head Exam: ATRAUMATIC, NORMAL INSPECTION, NORMOCEPHALIC - Eye Exam Eye Exam: EOMI, Normal appearance. absent: Conjunctival injection, Scleral icterus - ENT Exam ENT Exam: Mucous Membranes Moist - Neck Exam Neck exam: Positive for: Normal Inspection - Respiratory Exam Respiratory Exam: Clear to Auscultation Bilateral, NORMAL BREATHING PATTERN. absent: Accessory Muscle Use, Rales, Rhonchi, Wheezes, Respiratory Distress - Cardiovascular Exam Cardiovascular Exam: REGULAR RHYTHM, +S1, +S2 - GI/Abdominal Exam GI & Abdominal Exam: Normal Bowel Sounds, Soft. absent: Firm, Guarding, Tenderness - Extremities Exam Extremities exam: Positive for: normal inspection, pedal pulses present. Negative for: pedal edema, tenderness Additional comments: surgical scar noted L knee - Back Exam Back exam: NORMAL INSPECTION. absent: rash noted - Neurological Exam Neurological exam: Alert, CN II-XII Intact, Oriented x3 - Psychiatric Exam Psychiatric exam: Normal Affect, Normal Mood - Skin Skin Exam: Dry, Intact, Normal Color, Warm Results - Vital Signs Recent Vital Signs: Last Vital Signs Temp 98.3 F 05/13/18 07:10 Pulse 91 H 05/13/18 07:10 Resp 20 05/13/18 07:10 BP 119/80 05/13/18 07:10 Pulse Ox 97 05/12/18 15:31 - Labs Result Diagrams: 05/12/18 12:50 05/12/18 14:25 Labs: Laboratory Results - last 24 hr 0205/12/18 05/12/18 12:50 13:50 14:25 WBC 6.6 RBC 4.50 Hgb 13.6 L Hct 40.0 L MCV 88.9 MCH 30.2 MCHC 34.0 RDW 13.6 Plt Count 229 MPV 9.3 Neut % (Auto) 73.2 H Lymph % (Auto) 18.5 L Barber % (Auto) 6.9 H Eos % (Auto) 0.9 L Baso % (Auto) 0.5 Lymph # (Auto) 1.2 Barber # (Auto) 0.5 Eos # (Auto) 0.1 Baso # (Auto) 0.03 Absolute Neuts (auto) 4.80 Sodium 140 Potassium 4.3 Chloride 105 Carbon Dioxide 25 Anion Gap 14 BUN 17 Creatinine 0.8 Est GFR ( Amer) > 60 Est GFR (Non-Af Amer) > 60 Random Glucose 119 H Calcium 9.6 Magnesium 1.9 Total Bilirubin 0.6 AST 39 ALT 16 Alkaline Phosphatase 87 Total Protein 8.4 H Albumin 4.7 Globulin 3.8 Albumin/Globulin Ratio 1.2 Triglycerides Cholesterol LDL Cholesterol Direct HDL Cholesterol TSH 3rd Generation Urine Color Yellow Urine Appearance Clear Urine pH 6.0 Ur Specific [place] >= 1.030 Urine Protein Trace H Urine Glucose (UA) Negative Urine Ketones Negative Urine Blood Negative Urine Nitrate Negative Urine Bilirubin Negative Urine Urobilinogen 0.2 Ur Leukocyte Esterase Trace H Urine RBC 0 - 2 Urine WBC 5 - 10 H Ur Epithelial Cells 0 - 2 Amorphous Sediment Few Urine Bacteria Mod Urine Other Fiber Salicylates Urine Opiates Screen Urine Methadone Screen Acetaminophen Ur Barbiturates Screen Ur Phencyclidine Scrn Ur Amphetamines Screen U Benzodiazepines Scrn U Oth Cocaine Metabols U Cannabinoids Screen Alcohol, Quantitative 05/12/18 05/12/18 05/12/18 14:25 14:25 14:30 WBC RBC Hgb Hct MCV MCH MCHC RDW Plt Count MPV Neut % (Auto) Lymph % (Auto) Barber % (Auto) Eos % (Auto) Baso % (Auto) Lymph # (Auto) Barber # (Auto) Eos # (Auto) Baso # (Auto) Absolute Neuts (auto) Sodium Potassium Chloride Carbon Dioxide Anion Gap BUN Creatinine Est GFR ( Amer) Est GFR (Non-Af Amer) Random Glucose Calcium Magnesium Total Bilirubin AST ALT Alkaline Phosphatase Total Protein Albumin Globulin Albumin/Globulin Ratio Triglycerides Cholesterol LDL Cholesterol Direct HDL Cholesterol TSH 3rd Generation Urine Color Urine Appearance Urine pH Ur Specific [place] Urine Protein Urine Glucose (UA) Urine Ketones Urine Blood Urine Nitrate Urine Bilirubin Urine Urobilinogen Ur Leukocyte Esterase Urine RBC Urine WBC Ur Epithelial Cells Amorphous Sediment Urine Bacteria Urine Other Salicylates < 1 L Urine Opiates Screen Negative Urine Methadone Screen Negative Acetaminophen < 10.0 L Ur Barbiturates Screen Negative Ur Phencyclidine Scrn Negative Ur Amphetamines Screen Negative U Benzodiazepines Scrn Negative U Oth Cocaine Metabols Negative U Cannabinoids Screen Negative Alcohol, Quantitative < 10 05/13/18 05/13/18 07:00 07:00 WBC RBC Hgb Hct MCV MCH MCHC RDW Plt Count MPV Neut % (Auto) Lymph % (Auto) Barber % (Auto) Eos % (Auto) Baso % (Auto) Lymph # (Auto) Barber # (Auto) Eos # (Auto) Baso # (Auto) Absolute Neuts (auto) Sodium Potassium Chloride Carbon Dioxide Anion Gap BUN Creatinine Est GFR ( Amer) Est GFR (Non-Af Amer) Random Glucose Calcium Magnesium Total Bilirubin AST ALT Alkaline Phosphatase Total Protein Albumin Globulin Albumin/Globulin Ratio Triglycerides 65 Cholesterol 138 LDL Cholesterol Direct 58 HDL Cholesterol 54 TSH 3rd Generation 4.10 Urine Color Urine Appearance Urine pH Ur Specific [place] Urine Protein Urine Glucose (UA) Urine Ketones Urine Blood Urine Nitrate Urine Bilirubin Urine Urobilinogen Ur Leukocyte Esterase Urine RBC Urine WBC Ur Epithelial Cells Amorphous Sediment Urine Bacteria Urine Other Salicylates Urine Opiates Screen Urine Methadone Screen Acetaminophen Ur Barbiturates Screen Ur Phencyclidine Scrn Ur Amphetamines Screen U Benzodiazepines Scrn U Oth Cocaine Metabols U Cannabinoids Screen Alcohol, Quantitative Assessment & Plan - Assessment and Plan (Free Text) Assessment: -Seizures -Asthma -RUI -HLD -Arthritis -Vertigo -Anxiety -Depression -OCD Plan: Patient's vitals, blood work, and imaging noted in chart. f/u Keppra level. Neuro on board. Continue home Keppra 750bid for seizures and Lipitor 20hs for HLD. f/u Lipid panel and HgbA1c. Duoneb prn on board for shortness of breath in light of history of asthma. Mood disorders managed as per psych. Recommend patient to have outpatient f/u with pulm for RUI. Maintain normotensino, normothermia, and euglycemia. Will continue to monitor at this time. Discussed with Dr. Yunier Pro PGY3 <John Faye S - Last Filed: 05/14/18 21:26> Meds - Medications Medications: Current Medications Acetaminophen (Tylenol 325mg Tab) 650 mg PO Q4 PRN PRN Reason: Pain, moderate (4-7) Al Hydrox/Mg Hydrox/Simethicone (Maalox Plus 30 Ml) 30 ml PO DAILY PRN PRN Reason: Upset Stomach Albuterol/Ipratropium (Duoneb 3 Mg/0.5 Mg (3 Ml) Ud) 3 ml IH [id number] PRN PRN Reason: Shortness of Breath Atorvastatin Calcium (Lipitor) 20 mg PO DIN [facility] Last Admin: 05/14/18 17:41 Dose: 20 mg Clomipramine HCl (Anafranil) 50 mg PO HS [facility] Last Admin: 05/14/18 21:15 Dose: 50 mg Clonazepam (Klonopin) 2 mg PO TID [facility]; Protocol Last Admin: 05/14/18 17:40 Dose: 2 mg Docusate Sodium (Colace) 100 mg PO BID PRN PRN Reason: Constipation Famotidine (Pepcid) 20 mg PO 1000,2200 [facility] Last Admin: 05/14/18 21:16 Dose: 20 mg Fluoxetine HCl (Prozac) 40 mg PO DAILY [facility] Last Admin: 05/14/18 08:13 Dose: 40 mg Fluoxetine HCl (Prozac) 20 mg PO 1600 [facility] Last Admin: 05/14/18 17:41 Dose: 20 mg Gabapentin (Neurontin) 600 mg PO QID [facility]; Protocol Last Admin: 05/14/18 21:16 Dose: 600 mg Home Med (Home Med) 1 unit INH DAILY [facility] Last Admin: 05/14/18 08:19 Dose: 1 unit Home Med (Home Med) 1 unit PO BID [facility] Last Admin: 05/14/18 17:44 Dose: 1 unit Levetiracetam (Keppra) 750 mg PO BID [facility] Last Admin: 05/14/18 17:44 Dose: 750 mg Lorazepam (Ativan) 2 mg PO Q6 PRN; Protocol PRN Reason: Anxiety Lorazepam (Ativan) 2 mg IM Q6 PRN; Protocol PRN Reason: anxiety/agitation Magnesium Hydroxide (Milk Of Magnesia) 30 ml PO DAILY PRN PRN Reason: Constipation Polyethylene Glycol (Miralax) 17 gm PO BID PRN PRN Reason: Constipation Risperidone (Risperdal Tab) 1 mg PO BID [facility]; Protocol Last Admin: 05/14/18 17:45 Dose: 1 mg Risperidone (Risperdal Tab) 1 mg PO HS [facility]; Protocol Last Admin: 05/14/18 21:16 Dose: 1 mg Ziprasidone (Geodon Cap) 20 mg PO Q6 PRN; Protocol PRN Reason: Agitation Ziprasidone (Geodon Inj) 20 mg IM Q6 PRN; Protocol PRN Reason: Severe Agitation Zolpidem Tartrate (Ambien) 5 mg PO HS PRN; Protocol PRN Reason: Insomnia Last Admin: 05/14/18 21:15 Dose: 5 mg Results - Vital Signs Recent Vital Signs: Last Vital Signs Temp 96.8 F L 05/14/18 07:20 Pulse 87 05/14/18 16:00 Resp 20 05/14/18 07:20 BP 125/80 05/14/18 16:00 Pulse Ox 97 05/12/18 15:31 - Labs Result Diagrams: 05/12/18 12:50 05/12/18 14:25 Labs: Laboratory Results - last 24 hr 05/14/18 05/14/18 07:25 07:25 Hemoglobin A1c 6.0 Triglycerides 56 Cholesterol 131 LDL Cholesterol Direct 60 HDL Cholesterol 57 Assessment & Plan - Assessment and Plan (Free Text) Plan: Pt seen and examined by me. I have reviewed the note of the medical record specialist and I agree with it. I have discussed the assessment and plan with the resident. I have reviewed the medications and the last labs.Pt is being seen for consult for the medical issues of Sz d/o, OA, RUI. Pt has vertigo that is improved and is being seen by Neurology. Pt is on Keppra for Sz d/o. He has anxiety and is being seen by Psych. He is on Duoneb prn for Asthma. See the progress note that was dictated today. Pt was seen for the first time today.
[2018-05-13] MEDS ORDERED: BREO ELLIPTA INH SCH (13:15)
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
[2018-05-13] MEDS ORDERED: LUBIPROSTONE 24 MCG PO SCH (16:00)
--- NOTE | 2018-05-13 16:11 | CON ---
DATE: 05/13/2018 NEUROLOGY CONSULT CHIEF COMPLAINT: Vertigo. HISTORY OF PRESENT ILLNESS: This is a 58-year-old man with past medical history of depression; history of nocturnal seizures, on Keppra 750 p.o. b.i.d.; history of depression and anxiety; history of OCD; who has come in for worsening depression symptoms and anxiety, which from vertigo. He does get from sitting to standing position and turning his head in right and left direction. He has done vestibular therapy in the past which has helped. Currently, he is not experiencing as much vertigo as he was in the past. He has not had seizures in the past 6 months. He is clinically stable. PAST MEDICAL HISTORY: As above. FAMILY HISTORY: Noncontributory. SOCIAL HISTORY: No illicit drug use, smoking or EtOH abuse. MEDICATIONS: Reviewed by nurse's reconciliation sheet. REVIEW OF SYSTEMS: Fourteen-point review of systems is negative except as per the HPI. ALLERGIES: IBUPROFEN, PENICILLIN, AND AMOXAPINE. LABORATORY DATA: Sodium is 140, potassium is 4.3, chloride 105, carbon dioxide 25, BUN of 17, creatinine 0.8, random glucose 119. PHYSICAL EXAMINATION VITAL SIGNS: Temperature is 98.1, pulse rate of 91, blood pressure of 119/80, respiratory rate 20, oxygen saturation 80% on room air. GENERAL: The patient is seen up in bed, in no acute distress. HEENT: Atraumatic, normocephalic. PERRLA. Extraocular muscles intact. NECK: Supple. No JVD. No adenopathy noted. LUNGS: Clear to auscultation. No adventitious sounds. HEART: S1 and S2. Normal rate and rhythm. No murmurs, rubs, or gallops. ABDOMEN: Soft, nontender, nondistended. Bowel sounds present. EXTREMITIES: No clubbing, no cyanosis. Peripheral pulses 2+ felt bilaterally. NEUROLOGIC: The patient is alert, oriented to person, place, month and year. Speech is fluent without any errors. Cranial nerves II through XII are intact. Motor exam: Moves all extremities equally. Toes are downgoing bilaterally. Sensory: Decreased light touch and pinprick, proprioception and vibration are intact. DTRs are 2+ throughout. Coordination: [id number] is intact. No dysmetria noted. Romberg negative. Gait is normal. IMPRESSION: Vertigo positional and peripheral vestibular dysfunction. RECOMMENDATIONS: At this time,,we recommend: 1. Avoid sudden movements. 2. Meclizine 25 mg p.o. for acute onset of vertigo. 3. Outpatient vestibular therapy followup with Neurology, Dr. Christy. 4. Continue with Keppra 750 p.o. b.i.d. for ongoing nocturnal seizures onset at this point. Yoan Velasquez MD
[2018-05-13] MEDS: LUBIPROSTONE 24 MCG PO SCH (17:14)
[2018-05-13] MEDS ORDERED: Albuterol-Ipratrop 3 mg / 0.5 (3 ml) UD IH PRN (17:19)
[2018-05-14 07:44] LABS: HDL CHOLESTEROL 57 mg/dL (29-60)
[2018-05-14 07:54] LABS: LDL CHOLESTEROL 60 mg/dL (0-129)
[2018-05-14] MEDS: LUBIPROSTONE 24 MCG PO SCH ×2 (08:17→17:44)
[2018-05-14] MEDS: BREO ELLIPTA INH SCH (08:19)
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
--- NOTE | 2018-05-14 12:54 | PN ---
DATE: 05/14/2018 SUBJECTIVE: The patient has no complaints of any chest pain. No shortness of breath, no headaches or dizziness. PHYSICAL EXAMINATION: VITAL SIGNS: Temperature is 96.8, pulse of 100, blood pressure 132/87, respirations 20. GENERAL: The patient is lying in bed, flat, comfortable. HEENT: No oral lesion. Anicteric sclerae. Moist mucosa. NECK: No JVD, adenopathy, or thyromegaly. CARDIOVASCULAR: S1 and S2, regular. No murmurs, rubs, or gallops. LUNGS: Clear to auscultation bilaterally. No wheeze, rales, or rhonchi. ABDOMEN: Bowel sounds are positive, soft, nontender and nondistended. EXTREMITIES: No cyanosis, clubbing or edema. ASSESSMENT: 1. Vertigo. 2. Seizure disorder. 3. Asthma. 4. Gout. 5. Dyslipidemia. 6. Depression. 7. Anxiety. 8. Obstructive sleep apnea. PLAN: The patient is admitted to the hospital. I have been asked to evaluate the patient for medical issues that the patient has, that was listed in the assessment. The patient was seen by me. I did review the note of the biomedical technician. I went over the patient's plan of care. I agree with the note of the biomedical technician. The patient is going to continue the home medications. He is on Ambien for sleep. He is on Colace for constipation. He is going to continue with the Keppra for seizures. He is on Lipitor for dyslipidemia. He is on Neurontin for his neuropathy. The patient is on Risperdal. He had a urine that did not show any significant signs of infection. The patient has a urine tox as negative. We will sign off at this point, re-consult if needed. The patient currently is comfortable and does not require any further antibiotics. The patient was seen by Dr. Velasquez for his vertigo. John Faye MD
[2018-05-15 07:06] VITALS: BP 99/70; PULSE 90; TEMP 98.4
[2018-05-15] MEDS: BREO ELLIPTA INH SCH (07:53)
[2018-05-15] MEDS: LUBIPROSTONE 24 MCG PO SCH (07:53)
--- NOTE | 2018-05-15 15:01 | PCM.PYCHDC ---
Mental Status Examination - Mental Status Examination Orientation: Person, Place, Situation, Time Memory: Intact Mood: Neutral Affect: Constricted (But more reactive and mood congruent) Speech: Appropriate (But underproductive which seems to be baseline) Attention: WNL (Much improved) Concentration: WNL (Much improved) Association: WNL Fund of Knowledge: WNL Formal Thought Process: No Impairment Description of patient's judgement and insight: Pt has improved insight into mental and medical illness, pt was compliant with medications and unit rules and regulations, pt was attending therapy groups, was calm, cooperative, socially appropriate, no behavioral incidents, no agitation, no aggression. Psychotic Thoughts and Behaviors: Pt denied v/a/t hallucinations, denied paranoid ideations, pt does not appear to be psychotic, and thought process is goal directed. Suicidal Ideation: No Current Homicidal Ideation?: No Plan: pt adamantly denied thoughts of harming self or others denied intent or plan. Discharge Summary - Discharge Note Reason for Hospitalization: Patient was admitted to the psychiatric inpatient station for worsening depression, worsening of OCD, passive wish to be . Psychiatric History (includes Medical, Family, Personal Hx): See HPI Laboratory Data: 05/12/18 12:50 05/12/18 14:25 Lab Results 05/14/18 07:25: Hemoglobin A1c 6.0 05/14/18 07:25: Triglycerides 56, Cholesterol 131, LDL Cholesterol Direct 60, HDL Cholesterol 57 05/13/18 07:00: Triglycerides 65, Cholesterol 138, LDL Cholesterol Direct 58, HDL Cholesterol 54 05/13/18 07:00: RPR Nonreactive 05/13/18 07:00: TSH 3rd Generation 4.10 05/12/18 14:30: Urine Opiates Screen Negative, Urine Methadone Screen Negative, Ur Barbiturates Screen Negative, Ur Phencyclidine Scrn Negative, Ur Amphetamines Screen Negative, U Benzodiazepines Scrn Negative, U Oth Cocaine Metabols Negative, U Cannabinoids Screen Negative 05/12/18 14:25: Alcohol, Quantitative < 10 05/12/18 14:25: Salicylates < 1 L, Acetaminophen < 10.0 L 05/12/18 14:25: Sodium 140, Potassium 4.3, Chloride 105, Carbon Dioxide 25, Anion Gap 14, BUN 17, Creatinine 0.8, Est GFR ( Amer) > 60, Est GFR (Non- Af Amer) > 60, Random Glucose 119 H, Calcium 9.6, Magnesium 1.9, Total Bilirubin 0.6, AST 39, ALT 16, Alkaline Phosphatase 87, Total Protein 8.4 H, Albumin 4.7, Globulin 3.8, Albumin/Globulin Ratio 1.2 05/12/18 13:50: Urine Color Yellow, Urine Appearance Clear, Urine pH 6.0, Ur Specific [place] >= 1.030, Urine Protein Trace H, Urine Glucose (UA) Negative, Urine Ketones Negative, Urine Blood Negative, Urine Nitrate Negative, Urine Bilirubin Negative, Urine Urobilinogen 0.2, Ur Leukocyte Esterase Trace H, Urine RBC 0 - 2, Urine WBC 5 - 10 H, Ur Epithelial Cells 0 - 2, Amorphous Sediment Few, Urine Bacteria Mod, Urine Other Fiber 05/12/18 12:50: WBC 6.6, RBC 4.50, Hgb 13.6 L, Hct 40.0 L, MCV 88.9, MCH 30.2, MCHC 34.0, RDW 13.6, Plt Count 229, MPV 9.3, Neut % (Auto) 73.2 H, Lymph % (Auto) 18.5 L, [place] % (Auto) 6.9 H, Eos % (Auto) 0.9 L, Baso % (Auto) 0.5, Lymph # (Auto) 1.2, [place] # (Auto) 0.5, Eos # (Auto) 0.1, Baso # (Auto) 0.03, Absolute Neuts (auto) 4.80 Vital Signs Temp Pulse Pulse Resp BP Pulse Ox 05/15/18 07:02 98.4 F 90 20 99/70 L 05/14/18 16:00 87 125/80 05/14/18 07:20 96.8 F L 100 H 20 133/87 05/14/18 06:54 97.9 F 61 20 145/53 L 05/13/18 15:00 108 H 20 137/91 H 05/13/18 07:10 98.3 F 91 H 20 119/80 05/12/18 17:20 107 H 18 05/12/18 15:31 97.8 F 110 H 18 148/93 H 97 05/12/18 11:26 98.9 F 107 H 18 134/81 95 Consultations:: List each consultation separately and include: 1. Reason for request. 2. Findings. 3. Follow-up Consultations: Medical consult was called for urinary tract infection, patient does not need to be on any antibiotics Neurology consult appreciated Summary of Hospital Course include:: 1. Description of specific treatment plan utilized for patients during their course of treatmen. 2. Summarize the time- course for resolution of acute symptoms and/or regressed behaviors. 3. Describe issues identified and worked on during hospitalization. 4. Describe medication utilized. 5. Describe medical problems identified and treated. 6. Reassessment of suicide risk Summary of Hospital Course: shortly patient is 58-year-old year old male, history of mental illness, more than 16 psychiatric admissions, currently under care of Dr. Damon, medications compliant, pt came to the hospital looking for help for difficulties to cope with everyday living and is dealing with stress despite suicidal plan or intent pt had passive wish to be , in ED states he wouldn't mind if he didn't wake up. Pt was admitted for worsening of his depression/ OCD symptoms, severe anxiety, inability to function, pt said that medications are not helping pt. patient requires further evaluation and stabilization and possibly medication adjustment. as per RN report overnight patient required was verbalizing thoughts of harming self, but pt was able to ask for help, pt was given ambien, after what he was able to fall asleep. Please see admission note for more detailed information. pt was stabilized on the following medications: Atorvastatin [Lipitor] 20 mg PO DIN clomiPRAMINE [Anafranil] 50 mg PO HS for OCD clonazePAM [Klonopin] 2 mg PO TID for anxiety Docusate [Colace] 100 mg PO BID Famotidine [Pepcid] 20 mg PO 1000,2200 Fluoxetine HCl [Prozac] 60 mg daily for depression and anxiety Fluticasone/Salmeterol 100/50 [Advair Diskus 100/50] 1 puff IH Q12 Gabapentin [Neurontin] 600 mg PO QID Levetiracetam [Keppra] 750 mg PO BID Polyethylene Glycol 3350 [Miralax] 17 gm PO BID risperiDONE [RisperDAL Tab] 1 mg PO TID for mood stabilization Ambien 5 mg at the nighttime as needed for insomnia 05/12/18 12:50 05/12/18 14:25 Lab Results 05/13/18 07:00: Triglycerides 65, Cholesterol 138, LDL Cholesterol Direct 58, HDL Cholesterol 54 05/13/18 07:00: TSH 3rd Generation 4.10 05/12/18 14:30: Urine Opiates Screen Negative, Urine Methadone Screen Negative, Ur Barbiturates Screen Negative, Ur Phencyclidine Scrn Negative, Ur Amphetamines Screen Negative, U Benzodiazepines Scrn Negative, U Oth Cocaine Metabols Negative, U Cannabinoids Screen Negative 05/12/18 14:25: Alcohol, Quantitative < 10 05/12/18 14:25: Salicylates < 1 L, Acetaminophen < 10.0 L 05/12/18 14:25: Sodium 140, Potassium 4.3, Chloride 105, Carbon Dioxide 25, Anion Gap 14, BUN 17, Creatinine 0.8, Est GFR ( Amer) > 60, Est GFR (Non- Af Amer) > 60, Random Glucose 119 H, Calcium 9.6, Magnesium 1.9, Total Bilirubin 0.6, AST 39, ALT 16, Alkaline Phosphatase 87, Total Protein 8.4 H, Albumin 4.7, Globulin 3.8, Albumin/Globulin Ratio 1.2 05/12/18 13:50: Urine Color Yellow, Urine Appearance Clear, Urine pH 6.0, Ur Specific [place] >= 1.030, Urine Protein Trace H, Urine Glucose (UA) Negative, Urine Ketones Negative, Urine Blood Negative, Urine Nitrate Negative, Urine Bi lirubin Negative, Urine Urobilinogen 0.2, Ur Leukocyte Esterase Trace H, Urine RBC 0 - 2, Urine WBC 5 - 10 H, Ur Epithelial Cells 0 - 2, Amorphous Sediment Few, Urine Bacteria Mod, Urine Other Fiber 05/12/18 12:50: WBC 6.6, RBC 4.50, Hgb 13.6 L, Hct 40.0 L, MCV 88.9, MCH 30.2, MCHC 34.0, RDW 13.6, Plt Count 229, MPV 9.3, Neut % (Auto) 73.2 H, Lymph % (Auto) 18.5 L, [place] % (Auto) 6.9 H, Eos % (Auto) 0.9 L, Baso % (Auto) 0.5, Lymph # (Auto) 1.2, [place] # (Auto) 0.5, Eos # (Auto) 0.1, Baso # (Auto) 0.03, Absolute Neuts (auto) 4.80 Vital Signs Temp Pulse Pulse Resp BP Pulse Ox 05/13/18 07:10 98.3 F 91 H 20 119/80 05/12/18 17:20 107 H 18 05/12/18 15:31 97.8 F 110 H 18 148/93 H 97 05/12/18 11:26 98.9 F 107 H 18 134/81 95 Patient tolerated medications well, no side effects observed or reported, aims 0, no EPS. Patient was visited by his sister, as per patient it was "good visit", patient appears to be much calmer, no psychotic symptoms, no passive wish to be , depression is much improved. Over the course of this hospitalization pt was attending groups, pt also had medication management, had therapeutic milieu. Overall pt improved significantly, pt's affect became brighter, pt was less depressed, has realistic future oriented plans, pt also does not appear to be psychotic, or anxious, pt was socially appropriate, no behavioral issues, pts insight improved as well and soon pt deemed to be ready for discharge. At the time of the discharge patient pose no imminent danger to self or others, will be following up with , information about follow up appointment, time and address provided to the pt, (see SW note for more detailed information). It is a patient responsibility to follow up with outpatient clinic, PMD as well as specialists In case patient will need to obtain results of studies pending at discharge, patient was provided with contact information of Psychiatric Inpatient unit [phone] as well as Medical Record Department [phone], as well as [facility] Director Investor Relations team [phone]. Patient denied smoking, denied alcohol consumption, denied substance abuse pt was provided with prescriptions for two weeks and one refill for psychotropic meds and one week for medical meds (see medication reconciliation form) Pt was educated about safety plan in case of worsening of symptoms or in case of suicidal or homicidal ideation call 911 or go to the nearest ER, also was educated to take meds as prescribed and stay away from drugs, pt verbalized understanding. - Diagnosis (1) Depression Current Visit: Yes Status: Chronic Priority: High (2) OCD (obsessive compulsive disorder) Current Visit: No Status: Chronic Priority: High - Final Diagnosis (DSM 5) Condition upon Discharge: GOOD Disposition: HOME/ ROUTINE Follow-up Treatment Plan: At the time of the discharge patient pose no imminent danger to self or others, will be following up with , information about follow up appointment, time and address provided to the pt, (see SW note for more detailed information). It is a patient responsibility to follow up with outpatient clinic, PMD as well as specialists In case patient will need to obtain results of studies pending at discharge, patient was provided with contact information of Psychiatric Inpatient unit [phone] as well as Medical Record Department [phone], as well as [facility] team [phone]. Patient denied smoking, denied alcohol consumption, denied substance abuse pt was provided with prescriptions for two weeks and one refill for psychotropic meds and one week for medical meds (see medication reconciliation form) Pt was educated about safety plan in case of worsening of symptoms or in case of suicidal or homicidal ideation call 911 or go to the nearest ER, also was educated to take meds as prescribed and stay away from drugs, pt verbalized understanding. Prescriptions/Medication Reconciliation: Atorvastatin [Lipitor] 20 mg PO DIN #7 tab clomiPRAMINE [Anafranil] 50 mg PO HS #14 cap Clonazepam [Klonopin] 2 mg PO TID #45 tab Docusate [Colace] 100 mg PO BID PRN #14 cap PRN Reason: Constipation Famotidine [Pepcid] 20 mg PO 1000,2200 #14 tab FLUoxetine [Prozac] 20 mg PO 1600 #14 cap FLUoxetine [Prozac] 40 mg PO DAILY #14 cap Gabapentin [Neurontin] 600 mg PO QID #60 tab Levetiracetam [Keppra Xr] 750 mg PO BID #14 ter risperiDONE [RisperDAL Tab] 1 mg PO TID #45 tab Zolpidem [Ambien] 5 mg PO HS PRN #14 tab PRN Reason: Insomnia - Smoking Cessation Smoking Cessation Medication prescribed: No Reason for not providing: Patient denied smoking - Antipsychotic Medications Pt discharged on 2 or more routine antipsychotic medications: No
== END 2018-05-15 15:24 | disposition home or self-care (01) | DRG 881 ==
LOC: ED 11:25 → ERH 15:14 → PSYC 16:12
PROVIDERS: ADMIT Psychiatry & Neurology Psychiatry; ATTEND Psychiatry & Neurology Psychiatry
PROC: GZ3ZZZZ Medication Management (ICD-10-PCS; principal; 2018-05-12)
DX: F32.9 Major depressive disorder, single episode, unspecified (principal); N39.0 Urinary tract infection, site not specified; F42.9 Obsessive-compulsive disorder, unspecified; F41.9 Anxiety disorder, unspecified; F90.9 Attention-deficit hyperactivity disorder, unspecified type; G40.909 Epilepsy, unspecified, not intractable, without status epilepticus; G47.33 Obstructive sleep apnea (adult) (pediatric); M10.9 Gout, unspecified; J45.909 Unspecified asthma, uncomplicated; E78.5 Hyperlipidemia, unspecified; K21.9 Gastro-esophageal reflux disease without esophagitis; Z79.51 Long term (current) use of inhaled steroids; Z96.652 Presence of left artificial knee joint

== ENCOUNTER 2018-05-23 04:42 | Inpatient (IN) | payer MEDICARE, OTHER ==
[2018-05-23] MEDS ORDERED: Vancomycin 1gm in NS 250ml 1 GM/250 ML BAG IVPB STA (05:05)
[2018-05-23] MEDS ORDERED: Ciprofloxacin 400mg/200ml D5W 400 MG/200 ML BAG IVPB STA (05:05)
[2018-05-23] MEDS ORDERED: Sodium Chloride 0.9% 1,000 ML IV STA (05:07)
--- NOTE | 2018-05-23 05:19 | ED PDOC ---
Arrival/HPI <Rosas Queen - Last Filed: 05/23/18 07:54> - General Historian: Patient - History of Present Illness Narrative History of Present Illness (Text): 05/23/18 05:14 58 year old male, whose past medical history includes OCD, hyperlipdemia, psychiatric illness, presents to the emergency department via EMS from home for reported fall. Patient states he has been "sick with the flu" and was weak causing him to fall to the ground where he stayed on the floor for one hour. Patient reports a 102 fever at home and mild cough. He was started on Tamaflu by his PMD. Patient reports he struck his head, but did not pass out. He reports pain to his right periorbital region, left upper arm and knees. Patient is a poor historian. Of note, patent has been seen recently and discharged form the hospital's psych floor. Patient denies any fever, chills, chest pain, shortness of breath, nausea, vomiting, diarrhea, urinary symptoms, back pain, neck pain, headache, dizziness, or any other complaints. PMD: Dr. To Symptom Onset: Sudden Symptom Course: Unchanged Activities at Onset: Light Context: Home (Fall) <Chadd Arriaga - Last Filed: 05/23/18 14:29> - General Chief Complaint: Trauma Time Seen by Provider: 05/23/18 04:43 Past Medical History - Provider Review Nursing Documentation Reviewed: Yes - Infectious Disease Hx of Infectious Diseases: None - Tetanus Immunization Tetanus Immunization: Up to Date - Cardiac Hx Cardiac Disorders: No Hx Hypertension: No - Pulmonary Hx Respiratory Disorders: Yes Hx Asthma: Yes Hx Sleep Apnea: Yes Hx Tuberculosis: No - Neurological Hx Neurological Disorder: Yes HX Cerebrovascular Accident: No Hx Seizures: Yes - HEENT Hx HEENT Disorder: Yes Other/Comment: Inner ear vestibular disfunction - Renal Hx Renal Disorder: No - Endocrine/Metabolic Hx Endocrine Disorders: No - Hematological/Oncological Hx Blood Disorders: No Hx Cancer: No - Integumentary Hx Dermatological Disorder: No - Musculoskeletal/Rheumatological Hx Musculoskeletal Disorders: Yes Hx Arthritis: Yes - Gastrointestinal Hx Gastrointestinal Disorders: Yes Hx Gastroesophageal Reflux: Yes - Genitourinary/Gynecological Hx Genitourinary Disorders: No Hx Sexually Transmitted Diseases: No - Psychiatric Hx Anxiety: Yes Hx Depression: Yes Hx Substance Use: No - Surgical History Hx Orthopedic Surgery: Yes (Left knee 08/2017) Other/Comment: L testicular surgery. Nasal surgery for sleep apnea - Anesthesia Hx Anesthesia: Yes Hx Anesthesia Reactions: No Hx Malignant Hyperthermia: No - Suicidal Assessment Feels Threatened In Home Enviroment: No <Chadd Arriaga - Last Filed: 05/23/18 14:29> Family/Social History - Physician Review Nursing Documentation Reviewed: Yes Family/Social History: No Known Family HX Smoking Status: Never Smoked Hx Alcohol Use: No Hx Substance Use: No Hx Substance Use Treatment: No <Chadd Arriaga - Last Filed: 05/23/18 14:29> Allergies/Home Meds <Rosas Queen L - Last Filed: 05/23/18 07:54> <Chadd Arriaga - Last Filed: 05/23/18 14:29> Allergies/Adverse Reactions: Allergies ibuprofen [From Motrin] Allergy (Verified 05/23/18 04:44) RASH Penicillins Allergy (Verified 05/23/18 04:44) SWELLING amoxapine Adverse Reaction (Verified 05/23/18 04:44) ANAPHYLAXIS Review of Systems - Physician Review All systems were reviewed & negative as marked: Yes - Review of Systems Constitutional: absent: Fevers, Other (chills) Respiratory: absent: SOB Cardiovascular: absent: Chest Pain Gastrointestinal: absent: Nausea, Vomiting Genitourinary Male: absent: Dysuria, Frequency, Hematuria Musculoskeletal: Other (pain to his right periorbital region, left upper arm and knees.). absent: Back Pain, Neck Pain Neurological: absent: Headache, Dizziness <Chadd Arriaga - Last Filed: 05/23/18 14:29> Physical Exam Vital Signs Temp Pulse Resp BP Pulse Ox 05/23/18 07:11 97 H 127/70 23 L 05/23/18 06:29 99 F 05/23/18 05:29 101 F H 05/23/18 05:20 100.5 F H 105 H 18 94 L 05/23/18 04:53 99.5 F 105 H 18 141/78 89 L <Rosas Queen L - Last Filed: 05/23/18 07:54> Vital Signs Reviewed: Yes Vital Signs Temp Pulse Resp BP Pulse Ox 05/23/18 04:53 99.5 F 105 H 18 141/78 89 L Temperature: Afebrile Blood Pressure: Normal Pulse: Tachycardic Respiratory Rate: Normal Appearance: Positive for: Well-Appearing, Non-Toxic, Comfortable Pain Distress: None Mental Status: Positive for: Alert and Oriented X 3 - Systems Exam Head: Present: Atraumatic, Normocephalic, Tenderness (right perirorbital tenderness and swelling), Swelling Pupils: Present: PERRL Extroacular Muscles: Present: EOMI Conjunctiva: Present: Normal Mouth: Present: Moist Mucous Membranes Neck: Present: Normal Range of Motion, Other (Paracervical tenderness). No: MIDLINE TENDERNESS Respiratory/Chest: Present: Clear to Auscultation, Good Air Exchange. No: Respiratory Distress, Accessory Muscle Use Cardiovascular: Present: Regular Rate and Rhythm, Normal S1, S2. No: Murmurs Abdomen: No: Tenderness, Distention, Peritoneal Signs Back: Present: Normal Inspection. No: Midline Tenderness, Other (No stepoff to his cervical, thoracic, and lumbar spine) Upper Extremity: Present: Tenderness (Left upper arm ), Swelling (left upper a rm). No: Cyanosis, Edema Lower Extremity: Present: Normal Inspection. No: Edema Neurological: Present: GCS=15, Speech Normal Skin: Present: Warm, Dry, Normal Color. No: Rashes Psychiatric: Present: Alert, Oriented x 3, Normal Insight, Normal Concentration <Chadd Arriaga - Last Filed: 05/23/18 14:29> Medical Decision Making ED Course and Treatment: 05/23/18 07:32 Procedure: CT of the Head Time: May 23, 2018 7:23:02 AM Dictator: Dr. Yessica Duran M.D. Impression: 1. Age-appropriate cerebellar and cerebral atrophy. 2. Mild chronic microvascular disease. 3. No evidence of acute intracranial pathology. 05/23/18 07:40 Procedure: CT scan of the facial bones Time: May 23, 2018 7:33:56 AM Dictator: Dr. Yessica Duran M.D. Impression: No CT evidence of acute bone pathology. Procedure: CT scan of the cervical spine without contrast Time: May 23, 2018 7:35:36 AM Dictator: Dr. Yessica Duran M.D. Impression: Spondylosis. Multilevel facet joint arthropathy. No acute bone pathology. 05/23/18 07:54 Dr. Arriaga requested I follow up the CT results for this admitted patient. I reviewed the CT results and there is no acute pathology though recommend admitting physician follow up of any other chronic findings. - Lab Interpretations Lab Results: pO2 40 mm/Hg (30-55) 05/23/18 05:10 VBG pH 7.39 (7.32-7.43) 05/23/18 05:10 VBG pCO2 47.0 (40-60) 05/23/18 05:10 VBG HCO3 28.5 mmol/l (21-28) H 05/23/18 05:10 VBG Total CO2 29.9 mmol.L (22-28) H 05/23/18 05:10 VBG O2 Sat (Calc) 77.1 % (40-65) H 05/23/18 05:10 VBG Base Excess 2.8 mmol/L (0.0-2.0) H 05/23/18 05:10 VBG Potassium 4.0 mmol/L (3.6-5.2) 05/23/18 05:10 Sodium 135.0 mmol/L (132-148) 05/23/18 05:10 Chloride 99.0 mmol/L (98-107) 05/23/18 05:10 Glucose 138 mg/dl (75-110) H 05/23/18 05:10 Lactate 1.8 mmol/L (0.7-2.1) 05/23/18 05:10 FiO2 21.0 % 05/23/18 05:10 PT 13.1 SECONDS (9.4-12.5) H 05/23/18 05:10 INR 1.16 05/23/18 05:10 APTT 28.5 Seconds (26.9-38.3) 05/23/18 05:10 Troponin I < 0.01 ng/mL 05/23/18 05:10 Total Bilirubin 1.3 mg/dL (0.2-1.3) 05/23/18 05:10 AST 63 U/L (17-59) H D 05/23/18 05:10 ALT 24 U/L (7-56) 05/23/18 05:10 Alkaline Phosphatase 98 U/L (38-126) 05/23/18 05:10 Total Protein 8.8 g/dL (5.8-8.3) H 05/23/18 05:10 Albumin 4.8 g/dL (3.0-4.8) 05/23/18 05:10 Globulin 4.0 gm/dL 05/23/18 05:10 Albumin/Globulin Ratio 1.2 (1.1-1.8) 05/23/18 05:10 - RAD Interpretation Radiology Orders: 05/23/18 05:01 CERVICAL SPINE W/O CONTRAST [CT] Stat HEAD W/O CONTRAST [CT] Stat CHEST PORTABLE [RAD] Stat FOREARM LEFT [RAD] Stat HUMERUS LEFT [RAD] Stat KNEES BILATERAL [RAD] Stat PELVIS ONE VIEW [RAD] Stat SHOULDER LEFT [RAD] Stat 05/23/18 05:03 MAXILLOFACIAL W/O CONTRAST [CT] Stat - Medication Orders Current Medication Orders: Discontinued Medications Acetaminophen (Tylenol 325mg Tab) 975 mg PO STAT STA Stop: 05/23/18 05:08 Last Admin: 05/23/18 05:29 Dose: 975 mg [facility] Pain/Vitals Document 05/23/18 05:29 EB (Rec: 05/23/18 05:29 [facility]-PC) Pain Reassessment Is This A Pain ReAssessment? No Vitals Temperature (97.6 F-99.6 F) 101 F Temperature Source Rectal Re-Assess: [facility] Pain/Vitals Document 05/23/18 06:29 EB (Rec: 05/23/18 07:07 [facility]-PC) Vitals Temperature (97.6 F-99.6 F) 99 F Temperature Source Oral Ciprofloxacin (Cipro 400mg/200ml Dsw) 400 mg in 200 mls @ 133.3 mls/hr IVPB STAT STA; Protocol Stop: 05/23/18 06:35 Last Admin: 05/23/18 05:30 Dose: 133.3 mls/hr eMAR Start Stop Document 05/23/18 05:30 EB (Rec: 05/23/18 05:30 [facility]) Intravenous Solution Start Date 05/23/18 Start Time 05:30 Vancomycin HCl (Vancomycin 1gm) 1 gm in 250 mls @ 167 mls/hr IVPB STAT STA; Protocol Stop: 05/23/18 06:34 Sodium Chloride (Sodium Chloride 0.9%) 1,000 mls @ 999 mls/hr IV .Q1H1M STA Stop: 05/23/18 06:07 Last Admin: 05/23/18 05:30 Dose: 999 mls/hr eMAR Start Stop Document 05/23/18 05:30 EB (Rec: 05/23/18 05:30 EB [id number]) Intravenous Solution Start Date 05/23/18 Start Time 05:30 Oseltamivir Phosphate (Tamiflu Cap) 75 mg PO STAT STA; Protocol Stop: 05/23/18 06:09 Last Admin: 05/23/18 07:10 Dose: 75 mg <Rosas Queen L - Last Filed: 05/23/18 07:54> ED Course and Treatment: 05/23/18 05:00 Impression: 58 year old male presents complaining of pain to the right periorbital region, left upper arm, and knees s/p fall after feeling weak. Plan: -- VBG -- Cervical Spine w/o contrast -- CT Head w/o contrast -- Macxillofacial wo contrast -- Labs -- Chest X-ray -- Cipro, IV Fluids, Tylenol, Vancomycin -- [place] left, forearm left, humeris left, knees bilateral, pelvis one view, shoulder left X-ray -- Influenza A B -- Urinalysis -- Reassess and disposition Prior Visits: Notes and results from previous visits were reviewed. Progress Notes: EKG shows Sinus Tachycardia [address]/T wave changes. Interpreted by me. - Lab Interpretations I have reviewed the lab results: Yes - RAD Interpretation Radiology Orders: 05/23/18 05:01 CERVICAL SPINE W/O CONTRAST [CT] Stat HEAD W/O CONTRAST [CT] Stat CHEST PORTABLE [RAD] Stat ELBOW LEFT 3 VIEWS ROUTINE [RAD] Stat FOREARM LEFT [RAD] Stat HUMERUS LEFT [RAD] Stat KNEES BILATERAL [RAD] Stat PELVIS ONE VIEW [RAD] Stat SHOULDER LEFT [RAD] Stat 05/23/18 05:03 MAXILLOFACIAL W/O CONTRAST [CT] Stat - EKG Interpretation Interpreted by ED Physician: Yes - Medication Orders Current Medication Orders: Acetaminophen (Tylenol 325mg Tab) 975 mg PO STAT STA Stop: 05/23/18 05:08 Ciprofloxacin (Cipro 400mg/200ml Dsw) 400 mg in 200 mls @ 133.3 mls/hr IVPB STAT STA; Protocol Stop: 05/23/18 06:35 Vancomycin HCl (Vancomycin 1gm) 1 gm in 250 mls @ 167 mls/hr IVPB STAT STA; Protocol Stop: 05/23/18 06:34 Sodium Chloride (Sodium Chloride 0.9%) 1,000 mls @ 999 mls/hr IV .Q1H1M STA Stop: 05/23/18 06:07 <Chadd Arriaga - Last Filed: 05/23/18 14:29> - Scribe Statement The provider has reviewed the documentation as recorded by the Scribe Itzel Pérez Provider Scribe Attestation: All medical record entries made by the Scribe were at my direction and personally dictated by me. I have reviewed the chart and agree that the record accurately reflects my personal performance of the history, physical exam, medical decision making, and the department course for this patient. I have also personally directed, reviewed, and agree with the discharge instructions and disposition. <Chadd Arriaga - Last Filed: 05/23/18 14:29> Disposition/Present on Arrival <Rosas Queen - Last Filed: 05/23/18 07:54> - Present on Arrival Any Indicators Present on Arrival: No History of DVT/PE: No History of Uncontrolled Diabetes: No Urinary Catheter: No History of Decub. Ulcer: No History Surgical Site Infection Following: None - Disposition Have Diagnosis and Disposition been Completed?: Yes Disposition Time: 07:00 <Chadd Arriaga - Last Filed: 05/23/18 14:29> - Disposition Diagnosis: Fall, UTI (urinary tract infection), Pneumonia, Influenza Disposition: HOSPITALIZED Condition: FAIR
[2018-05-23 05:29] LABS: BASO # 0.01 K/mm3 (0.0-2.0); BASO % 0.1 % (0.0-3.0); EOS % 0.1 % (1.5-5.0); HEMOGLOBIN 13.5 g/dL (14.0-18.0); LYMPH # 0.5 (1.2-3.4); LYMPH % 7.9 % (22.0-35.0); MEAN CELL VOLUME 88.8 fl (80.0-105.0); MEAN CORPUSCULAR HEMOGLOBIN 30.1 pg (25.0-35.0); MEAN CORPUSCULAR HGB CONC 33.9 g/dl (31.0-37.0); MEAN PLATELET VOLUME 9.3 fl (7.0-11.0); MONO # 0.6 (0.1-0.6); MONO % 9.3 % (1.0-6.0); RBC 4.48 10^6/uL (3.5-6.1); RED CELL DISTRIBUTION WIDTH 13.9 % (11.5-14.5); WHITE BLOOD COUNT 6.8 10^3/uL (4.5-11.0)
[2018-05-23 05:30] LABS: VENOUS BLOOD GAS BASE EXCESS 2.8 mmol/L (0.0-2.0); VENOUS BLOOD GAS PO2 40 mm/Hg (30-55); VENOUS BLOOD PH 7.39 (7.32-7.43)
[2018-05-23 05:39] LABS: INR 1.16; PARTIAL THROMBOPLASTIN TIME 28.5 Seconds (26.9-38.3); PROTHROMBIN TIME 13.1 SECONDS (9.4-12.5)
[2018-05-23 06:04] LABS: ALB/GLOB RATIO 1.2 (1.1-1.8); ALBUMIN 4.8 g/dL (3.0-4.8); ALT/SGPT 24 U/L (7-56); AST/SGOT 63 U/L (17-59); BLOOD UREA NITROGEN 13 mg/dL (7-21); CALCIUM 8.9 mg/dL (8.4-10.5); GFR NON-AFRICAN AMERICAN > 60
[2018-05-23 06:05] LABS: TROPONIN I < 0.01 ng/mL
[2018-05-23 06:19] LABS: CK-MB 2.1 ng/mL (0.0-3.6)
--- NOTE | 2018-05-23 09:43 | RAD ---
Date of service: 05/23/2018 HISTORY: cough COMPARISON: No prior. FINDINGS: LUNGS: Poor inspiration with low lung volumes, crowded bronchovascular markings and bibasilar atelectasis left greater than right. Questionable bilateral effusions left larger than right PLEURA: As above. No pneumothorax apparent. CARDIOVASCULAR: No aortic atherosclerotic calcification present. Cardiomegaly. No pulmonary vascular congestion. OSSEOUS STRUCTURES: No significant abnormalities. VISUALIZED UPPER ABDOMEN: Normal. OTHER FINDINGS: None. IMPRESSION: Poor inspiration with low lung volumes, crowded bronchovascular markings and bibasilar atelectasis left greater than right. Questionable bilateral effusions left larger than right
--- NOTE | 2018-05-23 09:47 | RAD ---
Date of service: 05/23/2018 PROCEDURE: Radiographs of the Left Forearm HISTORY: trauma COMPARISON: Correlation made with concurrent radiographs of the left humerus TECHNIQUE: Frontal and lateral views obtained. FINDINGS: BONES: Possible small chip fracture arising from the coronoid process. JOINT SPACES: There appears to be mild degenerative osteoarthritis. OTHER FINDINGS: There appears to be mild infiltration dorsal soft tissues at the level of the proximal ulna possibly representing abrasion and/or contusional changes. In situ angiocatheter within the antecubital fossa. IMPRESSION: Possible small chip fracture arising from the coronoid process.. Mild degenerative osteoarthritis.. Mild infiltration changes of the dorsal subcutaneous tissues proximal forearm; rule out abrasion and/or contusional changes. Note this report was placed in PA review folder for follow up.
--- NOTE | 2018-05-23 09:48 | RAD ---
Date of service: 05/23/2018 PROCEDURE: Radiographs of the Left Shoulder HISTORY: trauma COMPARISON: Comparison made with concurrent radiographs of the left humerus FINDINGS: BONES: Normal. No fracture. JOINTS: Mild degenerative osteoarthritis left acromioclavicular and to a lesser degree left glenohumeral joints.. SOFT TISSUES: Normal. OTHER FINDINGS: None. IMPRESSION: Degenerative osteoarthritis. DJD.
--- NOTE | 2018-05-23 09:50 | RAD ---
PROCEDURE: Radiographs of the left humerus. HISTORY: trauma COMPARISON: Correlation made with concurrent radiographs of the left shoulder and left forearm FINDINGS: BONES: Previously suspected small chip fracture arising from the coronoid process of the ulna not appreciated on this exam as compared to left for radiographs. Please refer that study for additional details the remaining osseous structures appear intact. SOFT TISSUES: Normal. OTHER FINDINGS: None. IMPRESSION: Previously noted a possible chip fracture arising from the coronoid process of the left humerus not appreciated on this study. The humerus is otherwise intact.
[2018-05-23] MEDS: Sodium Chloride 0.9% 1,000 ML IV SCH (09:53)
--- NOTE | 2018-05-23 09:53 | HP ---
DATE OF EXAM: 05/23/2018 HISTORY OF PRESENT ILLNESS: This is a 58-year-old male who is coming to the hospital complaining of not feeling well. He has been having flu like symptoms. The patient had a falls at the ground, where he was found about an hour later. He had a fever of 102. He had mild cough. He had been started on Tamiflu by his primary care doctor. The patient had an injury to the right side of his head. He complains the pain to the left arm and knees. He has no abdominal pain. No back pain. No dysuria or frequency. No nocturia. He feels lethargic. He is not able to give full history because of his underlying medical condition. ALLERGIES: TO IBUPROFEN, PENICILLIN AND AMOXAPINE. HOME MEDICATIONS: He is on Ambien, Anafranil, Colace, clonazepam, Keppra, Lipitor, gabapentin, Prozac and Risperdal. SOCIAL HISTORY: He does not smoke, drink or use drugs. He has been disabled more than 10 years according to the medical record. FAMILY HISTORY: Unable to assess. PAST MEDICAL HISTORY: Sleep apnea, GERD, seizure disorder, OCD and BPH. PHYSICAL EXAMINATION: VITAL SIGNS: He has a temperature of 101 T-max, pulse 92, blood pressure 112/70, respirations 20 and O2 saturation is 96%. Height is 6 feet 1 inches. Weight is 265 pounds. BMI is 35. GENERAL: The patient is lying in bed, comfortable, and in no acute distress. HEENT: Right perioral swelling. NECK: No JVD, anterior and posterior adenopathy, thyromegaly, or bruits. CARDIOVASCULAR: S1 and S2 regular. No murmurs, rubs or gallops. LUNGS: Clear to auscultation bilaterally. No wheezes, rales, or rhonchi. ABDOMEN: Bowel sounds are positive. Soft, nontender and nondistended. No hepatosplenomegaly. No rebound and no guarding EXTREMITIES: No cyanosis, clubbing, or edema. NEUROLOGIC: No facial asymmetry. Tongue is midline. No uvula deviation. Power is 5/5 upper extremities and lower extremities. Sensation intact in upper extremities and lower extremities. PSYCHIATRIC: The patient is able to answer questions. He denies any hallucinations, but limited exam. GENITOURINARY: No CVA tenderness. VASCULAR: 2+ pulses in the carotid pulses and pedal pulses. SKIN: No erythema or nodules SPINE: Shows normal curvature. LABORATORY DATA: White count is 6.8, hemoglobin 13.5 and platelet count 172. INR is 1.1. Chemistry shows a sodium of 135, potassium 3.9 and creatinine 1.9. His LDH is 748, CK 1198 and albumin is 4.8. Serology shows influenza is positive. His EKG shows sinus tachy 103, no ST-T changes. He had multiple x-rays done and official reports are not back, there were no fractures or abnormalities according to the ER doctor. ASSESSMENT: 1. Flu. 2. Fall. 3. Seizure disorder. 4. Obsessive compulsive disorder. 5. Gastroesophageal reflux disorder. 6. Benign prostate hypertrophy. 7. PENICILLIN ALLERGIES. PLAN: The patient is going to be admitted to the hospital. Currently he has a flu. He is going to be on his Lipitor for dyslipidemia. He is on Neurontin for neuropathy. He is receiving Pepcid. The patient is on Keppra. We will need to continue his Keppra. I will get Psychiatric and Neurologic evaluation, not sure if he had seizure. He is going to need ID to follow as well. The patient is going to be placed on IV fluids. We will repeat the patient's labs tomorrow. John Faye MD
--- NOTE | 2018-05-23 09:59 | RAD ---
Date of service: Nayla Clayton evac 05/23/2018 PROCEDURE: Radiographs of the pelvis. HISTORY: Trauma COMPARISON: None. FINDINGS: BONES: Pelvic Bones: Unremarkable. Hips: Grossly unremarkable. JOINTS: Minor bilateral joint space narrowing with slight spurring of the left superolateral acetabular roof. There is also a tiny bony density adjacent to the lateral margin of the right acetabular roof. Sacroiliac Joints: Unremarkable. Pubic Symphysis: Unremarkable. OTHER FINDINGS: None. IMPRESSION: No evidence of acute displaced fracture nor dislocation. Minor degenerative osteoarthritis
[2018-05-23] MEDS ORDERED: LEVETIRACETAM 750 MG PO SCH ×2 (10:00)
--- NOTE | 2018-05-23 10:00 | RAD ---
Date of service: 05/23/2018 PROCEDURE: Bilateral Knee Radiographs. HISTORY: trauma COMPARISON: None. FINDINGS: BONES: Right Knee: No evidence of acute displaced fracture nor dislocation. Left Knee: Left total knee replacement. Hardware intact with satisfactory alignment. No evidence of loosening or infection. No evidence of acute displaced fracture nor dislocation. JOINTS: Right Knee: There appears to be some very minor medial joint space narrowing. Left knee: As above. SOFT TISSUES: Right Knee: Normal. Left Knee: Normal. JOINT EFFUSION: Evaluation for joint effusion limited due to the lack of lateral views OTHER FINDINGS: None. IMPRESSION: Left total knee replacement with no evidence of hardware failure. No evidence of acute displaced fracture nor dislocation. Minor mid medial joint space narrowing right knee
--- NOTE | 2018-05-23 10:45 | CT ---
Date of service: 05/23/2018 PROCEDURE: CT HEAD WITHOUT CONTRAST. HISTORY: trauma COMPARISON: Correlation made with concurrent CT scan maxillofacial skeleton. TECHNIQUE: Axial computed tomography images were obtained through the head/brain without intravenous contrast. Radiation dose: Total exam DLP = 1031.89 mGy-cm. This CT exam was performed using one or more of the following dose reduction techniques: Automated exposure control, adjustment of the mA and/or kV according to patient size, and/or use of iterative reconstruction technique. FINDINGS: HEMORRHAGE: No acute parenchymal, subarachnoid or extra-axial hemorrhage. BRAIN: Mild chronic periventricular white matter ischemic changes seen extending peripherally into the deep white matter both cerebral hemispheres. There also appears to be a more discrete chronic appearing infarct in the right frontal deep white matter. Mild to moderate central volume loss evidenced by slight disproportionate enlargement of the ventricles as compared sulci.. VENTRICLES: Unremarkable. No hydrocephalus. CALVARIUM: Unremarkable. PARANASAL SINUSES: Unremarkable as visualized. No significant inflammatory changes. MASTOID AIR CELLS: Unremarkable as visualized. No inflammatory changes. OTHER FINDINGS: None. IMPRESSION: Mild chronic periventricular white matter ischemic changes seen extending peripherally into the deep white matter both cerebral hemispheres. There also appears to be a more discrete chronic appearing infarct in the right frontal deep white matter. Mild to moderate central volume loss evidenced by slight disproportionate enlargement of the ventricles as compared sulci..
[2018-05-23 10:46] LABS: URINE BILIRUBIN NEGATIVE (NEGATIVE); URINE BLOOD LARGE (NEGATIVE); URINE GLUCOSE (UA) NEGATIVE (NEGATIVE); URINE LEUKOCYTE ESTERASE MODERATE Leu/uL (NEGATIVE); URINE PROTEIN 30 mg/dL (<30 mg/dL)
--- NOTE | 2018-05-23 10:48 | CT ---
Date of service: 05/23/2018 PROCEDURE: CT MAXILLOFACIAL BONES WITHOUT CONTRAST HISTORY: Trauma COMPARISON: Correlation made with concurrent CT scan brain. TECHNIQUE: Contiguous axial CT images of the maxillofacial bones were obtained. Coronal and sagittal reformats were generated. Radiation dose: Total exam DLP = 726.1 mGy-cm. This CT exam was performed using one or more of the following dose reduction techniques: Automated exposure control, adjustment of the mA and/or kV according to patient size, and/or use of iterative reconstruction technique. FINDINGS: NASAL BONES: Unremarkable. ORBITS: Unremarkable. PARANASAL SINUSES/ MASTOIDS: Mucosal thickening inferior aspect right maxillary antrum. There is also minimal mucosal thickening seen within a few anterior superior ethmoid air cells and left aspect of the frontal sinus MAXILLA: Maxilla appears intact including the anterior nasal spine visualized MANDIBLE/ TEMPOROMANDIBULAR JOINTS: The visualized portions of the mandible appear intact however the superior margins of both mandibular rami and mandibular condyles not visualized on this study. However SKULL BASE: Unremarkable. TEMPORAL BONES: Middle ears and mastoid grossly unremarkable. OTHER FINDINGS: None. IMPRESSION: No evidence of acute maxillofacial skeletal fractures so far as can be seen. Minor mucosal thickening within the right maxillary antrum few anterior superior ethmoid air cells and left aspect of the frontal sinus.
[2018-05-23 10:49] LABS: URINE APPEARANCE SLIGHT-CLOUDY (CLEAR); URINE COLOR YELLOW (YELLOW)
--- NOTE | 2018-05-23 10:53 | CT ---
Date of service: 05/23/2018 PROCEDURE: CT Cervical Spine without contrast HISTORY: Trauma COMPARISON: None available. TECHNIQUE: Axial computed tomography images were obtained of the cervical spine without the use of intravenous contrast. Coronal and sagittal reformatted images were created and reviewed. Radiation dose: Total exam DLP = 621.32 mGy-cm. This CT exam was performed using one or more of the following dose reduction techniques: Automated exposure control, adjustment of the mA and/or kV according to patient size, and/or use of iterative reconstruction technique. FINDINGS: VERTEBRAE: No fracture. Normal alignment. No destructive bony lesion. DISCS/SPINAL CANAL/NEURAL FORAMINA: Disc space heights are relatively maintained. No disc herniation or significant disc bulges. Minor multilevel degenerative squaring of the uncovertebral joints. Mild multilevel facet arthropathy most notably on the left side at the C2-C3 the left side C2-C3, bilaterally C3-C4 level more so on the left, left side at the C5-C6 levels with of minimal though somewhat commensurate narrowing of the ipsilateral exit foramina at each of these levels level, on the right side at the C3-C4 level.. PARASPINAL SOFT TISSUES: Unremarkable. OTHER FINDINGS: Lung apices are clear with no evidence of pneumothorax. IMPRESSION: No acute fractures. Minor multilevel degenerative spondylosis as described.
[2018-05-23 11:02] LABS: URINE BACTERIA LARGE /hpf; URINE EPITHELIAL CELLS 0 - 2 /hpf (0-5); URINE RBC 25 - 30 /hpf (0-2); URINE WBC 20 - 25 /hpf (0-6)
[2018-05-23 11:03] LABS: URINE AMORPHOUS SEDIMENT FEW /hpf
--- NOTE | 2018-05-23 14:27 | CP.PCM.PCO ---
Physician Communication Note - Physician Communication Note Physician Communication Note: + Flu A - started Tamiflu; will see patient talib.
--- NOTE | 2018-05-23 15:56 | CON ---
DATE: 05/23/2018 NEUROLOGY CONSULT CHIEF COMPLAINT: History of seizure, came in with flu like symptoms. HISTORY OF PRESENT ILLNESS: A 58-year-old man with history of depression, anxiety, OCD, nocturnal seizures, on Keppra 750 mg p.o. b.i.d. managed by his neurology Dr. Christy, who came in with generalized weakness, after fall on the ground, later he had a fever of 102 and mild cough, has started Tamiflu by primary care doctor. He hit the head the right side of the head, but no seizure like activity, no loss consciousness. He is positive fluid influenza A hemophilus, he is currently on Tamiflu. He is on Keppra 750 mg p.o. b.i.d. for seizure prophylaxis which is also being managed by Dr. Christy as outpatient. No further focal weakness seen. ALLERGIES: TO IBUPROFEN, PENICILLIN, AND AMOXAPINE. HOME MEDICATIONS: He is on Ambien, Anafranil, Colace, clonazepam, Keppra, Lipitor, gabapentin, Prozac and Risperdal. SOCIAL HISTORY: He does not smoke, drink, or use drugs. FAMILY HISTORY: Noncontributory. REVIEW OF SYSTEMS: Fourteen-point review of systems is negative except as per the HPI. PHYSICAL EXAMINATION: VITAL SIGNS: T-max is 101, pulse rate 92, blood pressure 112/70, respiration 20 and oxygen saturation 96% on room air. GENERAL: He is lying in bed, in no acute distress. HEENT: Atraumatic and normocephalic. PERRLA. Extraocular muscles are intact. NECK: Supple, no JVD and no adenopathy noted. LUNGS: Clear to auscultation. No adventitious sounds. HEART: S1 and S2. Normal rate and rhythm. No murmurs, rubs or gallops. ABDOMEN: Soft, nontender, and nondistended. Bowel sounds are present. EXTREMITIES: No clubbing, no cyanosis. Peripheral pulses 2+ felt bilaterally. NEUROLOGIC: The patient is alert and oriented to person, place, month and year. . Cranial nerves II through XII intact. Motor exam; moves all extremities equally. Toes are downgoing bilaterally. Sensory: Decreased light touch and pinprick up to the calves bilaterally. Decreased vibration at the toes. DTRs are 2+ and 1 at both knees and ankles. Coordination: Gait is deferred for now. IMPRESSION: Generalized weakness, fever secondary to influenza hemophilus AKA flu, status post fall, history of nocturnal seizure at this time. We will recommend to continue this current dose of Keppra 750 mg p.o. b.i.d. for ongoing nocturnal seizure and follow with neurology Dr. Christy. 2. Avoid any sudden movements to prevent any vestibular dysfunction. 3. Continue Tamiflu for undergoing positive influenza . 4. Continue with his gabapentin and with underlying depression and anxiety and continue current present medical management. Yoan Velasquez MD
[2018-05-23] MEDS ORDERED: Influenza Vaccine 60 mcg/0.5 mL SYR (4YR UP) IM ONE (18:54)
[2018-05-23] MEDS ORDERED: Pneumococcal 23-Valent Vaccine IM ONE (18:54)
[2018-05-23 18:55] VITALS: BMI 34.9
--- NOTE | 2018-05-23 20:08 | CARD ---
APPROVED REPORT Date of service: 05/23/2018 EKG Measurement Heart [id number] <Conclusion> Sinus tachycardia Otherwise normal ECG
[2018-05-23] MEDS ORDERED: CLOMIPRAMINE 50 MG PO SCH ×2 (22:00)
[2018-05-24] MEDS: Sodium Chloride 0.9% 1,000 ML IV SCH (05:58)
[2018-05-24 07:54] LABS: HEMOGLOBIN 11.5 g/dL (14.0-18.0); MEAN CELL VOLUME 90.1 fl (80.0-105.0); MEAN CORPUSCULAR HEMOGLOBIN 29.3 pg (25.0-35.0); MEAN CORPUSCULAR HGB CONC 32.5 g/dl (31.0-37.0); MEAN PLATELET VOLUME 9.2 fl (7.0-11.0); RBC 3.93 10^6/uL (3.5-6.1); RED CELL DISTRIBUTION WIDTH 14.2 % (11.5-14.5); WHITE BLOOD COUNT 4.3 10^3/uL (4.5-11.0)
[2018-05-24 08:57] LABS: ALB/GLOB RATIO 1.1 (1.1-1.8); ALBUMIN 3.7 g/dL (3.0-4.8); ALT/SGPT 48 U/L (7-56); AST/SGOT 242 U/L (17-59); BLOOD UREA NITROGEN 13 mg/dL (7-21); CALCIUM 8.1 mg/dL (8.4-10.5); GFR NON-AFRICAN AMERICAN > 60
--- NOTE | 2018-05-24 10:54 | CP.PCM.CON ---
History of Present Illness - History of Present Illness History of Present Illness: 58 year old male with PMH of obsessive-compulsive disorder, dyslipidemia, sleep apnea, GERD, seizure disorder, BPH, obesity with BMI 35 came in to [facility] because of feeling ill, body aches, dry cough as well as fevers. He also had weakness, enough for him to fall to the floor, apparently hitting a hard object on his right side of his face, and fell on his knees. He denies headache, no rhinorrhea, no sore throat, no abdominal pain, no chest pain, no diarrhea. He admits to having occasional urinary frequency but has not had that in several days, including today, no dysuria, no hematuria. Rapid Influenza test is negative and urine cx are showing organisms. Infectious diseases consult is requested to further evaluate and manage. Review of Systems - Review of Systems All systems: reviewed and no additional remarkable complaints except (as per HPI) Past Patient History - Infectious Disease Hx of Infectious Diseases: None - Tetanus Immunizations Tetanus Immunization: Up to Date - Past Social History Smoking Status: Never Smoked - CARDIAC Hx Cardiac Disorders: No Hx Hypercholesterolemia: Yes Hx Hypertension: No - PULMONARY Hx Respiratory Disorders: Yes (INFLUENZA 05-23-18) Hx Asthma: Yes Hx Pneumonia: Yes Hx Sleep Apnea: Yes Hx Tuberculosis: No - NEUROLOGICAL Hx Neurological Disorder: Yes HX Cerebrovascular Accident: No Hx Dizziness: Yes (VERTIGO) Hx Seizures: Yes - HEENT Hx HEENT Problems: Yes Other/Comment: Inner ear vestibular disfunction - RENAL Hx Chronic Kidney Disease: No - ENDOCRINE/METABOLIC Hx Endocrine Disorders: No - HEMATOLOGICAL/ONCOLOGICAL Hx Blood Disorders: No Hx Cancer: No - INTEGUMENTARY Hx Dermatological Problems: No - MUSCULOSKELETAL/RHEUMATOLOGICAL Hx Musculoskeletal Disorders: Yes (SCIATICA,L KNEE SURGERY-TOTAL KNEE REPLACEMENT.) Hx Arthritis: Yes Hx Degenerative Joint Disease: Yes Hx Falls: Yes (05-23-18 LAST FALL.) Hx Gout: Yes - GASTROINTESTINAL Hx Gastrointestinal Disorders: Yes Hx Gastroesophageal Reflux: Yes - GENITOURINARY/GYNECOLOGICAL Hx Genitourinary Disorders: Yes Hx Prostate Problems: Yes (BPH) Hx Sexually Transmitted Disorders: No Hx Urinary Tract Infection: Yes - PSYCHIATRIC Hx Psychophysiologic Disorder: Yes Hx Anxiety: Yes Hx Depression: Yes Hx Substance Use: No - SURGICAL HISTORY Hx Surgeries: Yes Hx Orthopedic Surgery: Yes (Left knee 08/2017) Other/Comment: L testicular surgery. Nasal surgery for sleep apnea - ANESTHESIA Hx Anesthesia: Yes Hx Anesthesia Reactions: No Hx Malignant Hyperthermia: No Meds Allergies/Adverse Reactions: Allergies Allergy/AdvReac Type Severity Reaction Status Date / Time ibuprofen [From Motrin] Allergy RASH Verified 05/23/18 18:21 Penicillins Allergy SWELLING Verified 05/23/18 18:21 amoxapine AdvReac ANAPHYLAXIS Verified 05/23/18 18:21 - Medications Medications: Current Medications Atorvastatin Calcium (Lipitor) 20 mg PO DIN [facility] Last Admin: 05/23/18 17:19 Dose: 20 mg Docusate Sodium (Colace) 100 mg PO BID PRN PRN Reason: Constipation Famotidine (Pepcid) 20 mg PO 1000,2200 [facility] Last Admin: 05/23/18 22:42 Dose: 20 mg Gabapentin (Neurontin) 600 mg PO QID [facility]; Protocol Last Admin: 05/23/18 22:42 Dose: 600 mg Sodium Chloride (Sodium Chloride 0.9%) 1,000 mls @ 75 mls/hr IV .[id number] [facility] Stop: 05/24/18 11:39 Last Admin: 05/24/18 05:58 Dose: 75 mls/hr Levetiracetam (Keppra) 750 mg PO BID [facility] Last Admin: 05/23/18 17:20 Dose: 750 mg Non-Formulary Medication (Clomipramine [Anafranil]) 50 mg PO HS [facility] Oseltamivir Phosphate (Tamiflu Cap) 75 mg PO BID [facility]; Protocol Stop: 05/28/18 10:23 Last Admin: 05/23/18 17:20 Dose: 75 mg Physical Exam - Constitutional Appears: No Acute Distress, Chronically Ill - Head Exam Head Exam: NORMAL INSPECTION - Neck Exam Neck exam: Negative for: Meningismus - Respiratory Exam Respiratory Exam: Decreased Breath Sounds - Cardiovascular Exam Cardiovascular Exam: +S1, +S2 - GI/Abdominal Exam GI & Abdominal Exam: Soft. absent: Tenderness Results - Vital Signs Recent Vital Signs: Last Vital Signs Temp 98.3 F 05/23/18 22:14 Pulse 96 H 05/23/18 22:14 Resp 16 05/23/18 22:14 BP 112/74 05/23/18 22:14 Pulse Ox 95 05/23/18 22:14 - Labs Result Diagrams: 05/24/18 07:30 05/24/18 07:30 Labs: Laboratory Results - last 24 hr 05/23/18 10:30 Urine Color Yellow Urine Appearance Slight-cloudy Urine pH 6.0 Ur Specific [place] 1.025 Urine Protein 30 H Urine Glucose (UA) Negative Urine Ketones 15 H Urine Blood Large H Urine Nitrate Negative Urine Bilirubin Negative Urine Urobilinogen 1.0 H Ur Leukocyte Esterase Moderate H Urine RBC 25 - 30 H Urine WBC 20 - 25 H Ur Epithelial Cells 0 - 2 Amorphous Sediment Few Urine Bacteria Large Urine Other [place] Assessment & Plan - Assessment and Plan (Free Text) Plan: Assessment Systemic viral illness with Influenza A infection asymptomatic bacteriuria obsessive-compulsive disorder dyslipidemia sleep apnea GERD seizure disorder BPH obesity with BMI 35 Plan Started patient on Tamiflu urine cx showing >100 k gram positive cocci but patient currently does not have symptoms - will monitor off antibiotics and monitor to see if he develops symptoms
[2018-05-24] MEDS ORDERED: Potassium Chloride 20 mEq/15 ml LIQ UD PO STA (16:32)
--- NOTE | 2018-05-24 20:33 | PN ---
DATE: 05/24/2018 SUBJECTIVE: Patient is 58 years old, who lives by himself, has multiple falls. He had x-rays done, unremarkable. Currently, he is on isolation on Tamiflu. PHYSICAL EXAMINATION GENERAL: He is awake and alert, able to communicate. VITAL SIGNS: He is afebrile, pulse 95, respirations 18, blood pressure 117/73. LUNGS: Bilateral fair airflow. No rhonchi or crackle. HEART: S1 and S2, audible. ABDOMEN: Soft, obese, nontender. No rebound. No guarding NEUROLOGIC: He is awake, alert, oriented, able to communicate. EXTREMITIES: Moves all extremities. LABORATORY DATA: WBC 4.3, hemoglobin 11.5, hematocrit 35.4, platelet of 166. Chemistry; sodium 138, potassium 3.4, chloride 104, CO2 of 25, BUN 13, creatinine 0.9. Blood sugar of 89. AST 242, ALT 48. CPK is 1198. Urinalysis showed moderate leukocytes. Flu test is positive. Urine is positive for gram-positive cocci. Blood cultures are negative. ASSESSMENT: 1. Status post multiple falls. 2. Viral syndrome secondary to influenza. 3. History of seizure disorder. 4. History of depression. 5. Gastritis. 6. History of benign prostatic hypertrophy. PLAN: Currently, patient is on his usual depression medications. He is receiving Keppra for his seizure disorder. He is on Klonopin for anxiety. He is on statin. He is on gabapentin. He is on Risperdal. He is on Tamiflu 75 twice a day. He is on respiratory isolation. We will continue current medications, out of bed to chair, and physical therapy evaluation. Wero Barriga MD
[2018-05-25 07:06] LABS: HEMOGLOBIN 11.5 g/dL (14.0-18.0); MEAN CELL VOLUME 89.9 fl (80.0-105.0); MEAN CORPUSCULAR HGB CONC 32.2 g/dl (31.0-37.0); MEAN PLATELET VOLUME 9.2 fl (7.0-11.0); RBC 3.97 10^6/uL (3.5-6.1); RED CELL DISTRIBUTION WIDTH 14.1 % (11.5-14.5); WHITE BLOOD COUNT 5.1 10^3/uL (4.5-11.0)
[2018-05-25 07:14] LABS: ALB/GLOB RATIO 1.1 (1.1-1.8); ALBUMIN 3.8 g/dL (3.0-4.8); ALT/SGPT 50 U/L (7-56); AST/SGOT 237 U/L (17-59); BLOOD UREA NITROGEN 13 mg/dL (7-21); CALCIUM 8.4 mg/dL (8.4-10.5); GFR NON-AFRICAN AMERICAN > 60
--- NOTE | 2018-05-25 11:40 | CP.PCM.PN ---
<Keshav Rubin - Last Filed: 05/25/18 11:44> Subjective - Date & Time of Evaluation Date of Evaluation: 05/25/18 Time of Evaluation: 07:50 - Subjective Subjective: Medicine progress note: Patient was seen and examined at bedside. No acute events overnight. Patient still complains of some body aches however denies any fevers at this time. Patient also complains of mild cough. 12 point ROS performed and negative other than stated above. Objective - Vital Signs/Intake and Output Vital Signs (last 24 hours): Temp Pulse Resp BP Pulse Ox 97.5 F L 90 18 107/65 96 05/25/18 06:00 05/25/18 06:00 05/25/18 06:00 05/25/18 06:00 05/25/18 06:00 - Medications Medications: Current Medications Atorvastatin Calcium (Lipitor) 20 mg PO DIN [facility] Last Admin: 05/24/18 18:29 Dose: 20 mg Clonazepam (Klonopin) 2 mg PO TID [facility]; Protocol Last Admin: 05/25/18 10:14 Dose: 2 mg Docusate Sodium (Colace) 100 mg PO BID PRN PRN Reason: Constipation Last Admin: 05/25/18 10:13 Dose: 100 mg Famotidine (Pepcid) 20 mg PO 1000,2200 [facility] Last Admin: 05/25/18 10:14 Dose: 20 mg Fluoxetine HCl (Prozac) 40 mg PO BID [facility] Last Admin: 05/25/18 10:13 Dose: 40 mg Gabapentin (Neurontin) 600 mg PO QID [facility]; Protocol Last Admin: 05/25/18 10:13 Dose: 600 mg Levetiracetam (Keppra) 750 mg PO BID [facility] Last Admin: 05/25/18 10:12 Dose: 750 mg Non-Formulary Medication (Clomipramine [Anafranil]) 50 mg PO HS [facility] Last Admin: 05/24/18 22:23 Dose: Not Given Oseltamivir Phosphate (Tamiflu Cap) 75 mg PO BID [facility]; Protocol Stop: 05/28/18 10:23 Last Admin: 05/25/18 10:13 Dose: 75 mg Risperidone (Risperdal Tab) 1 mg PO TID [facility]; Protocol Last Admin: 05/25/18 10:13 Dose: 1 mg - Labs Labs: 05/25/18 06:40 05/25/18 06:40 PT 13.1 SECONDS (9.4-12.5) H 05/23/18 05:10 INR 1.16 05/23/18 05:10 APTT 28.5 Seconds (26.9-38.3) 05/23/18 05:10 - Constitutional Appears: No Acute Distress - Head Exam Head Exam: ATRAUMATIC, NORMOCEPHALIC - Eye Exam Eye Exam: EOMI - ENT Exam ENT Exam: Mucous Membranes Moist - Respiratory Exam Respiratory Exam: Clear to Ausculation Bilateral, Wheezes (mild diffuse wheezes). absent: Rales - Cardiovascular Exam Cardiovascular Exam: REGULAR RHYTHM, +S1, +S2 - GI/Abdominal Exam GI & Abdominal Exam: Soft. absent: Distended, Tenderness - Extremities Exam Extremities Exam: absent: Calf Tenderness, Pedal Edema - Neurological Exam Neurological Exam: Alert, Awake, Oriented x3 - Psychiatric Exam Psychiatric exam: Normal Mood - Skin Skin Exam: Dry, Warm Assessment and Plan - Assessment and Plan (Free Text) Assessment: Systemic viral illness - Influenza A infection dyslipidemia GERD seizure disorder BPH obesity with BMI 35 obsessive-compulsive disorder Patient was positive for influenza type a. Continue with Tamiflu as per infectious disease for a total of 5 days. Continue with Lipitor for his hyperlipidemia. Continue with Keppra for his seizure disorder. Follow-up neurology recommendations. Patient with history of OCD on multiple psychiatric medications including Risperdal, Prozac, Neurontin and clomipramine, psychiatry was consulted for recommendations and any surgery necessary medication readjustments. Continue with duo nebs as needed for his wheezing. Continue with Pepcid for his GERD. Continue with GIDVT prophylaxis. Continue to monitor for any changes. Case and plan was reviewed and discussed with Dr. Faye. <John Faye - Last Filed: 05/25/18 15:29> Objective - Vital Signs/Intake and Output Vital Signs (last 24 hours): Temp Pulse Resp BP Pulse Ox 97.8 F 71 20 115/74 98 05/25/18 14:00 05/25/18 14:00 05/25/18 14:00 05/25/18 14:00 05/25/18 14:00 Intake and Output: 05/25/18 05/25/18 06:59 18:59 Intake Total 540 Output Total 500 Balance 40 - Medications Medications: Current Medications Albuterol/Ipratropium (Duoneb 3 Mg/0.5 Mg (3 Ml) Ud) 3 ml IH [id number] PRN PRN Reason: Shortness of Breath Last Admin: 05/25/18 13:47 Dose: 3 ml Arformoterol Tartrate (Brovana) 15 mcg [facility] [id number] SABA Atorvastatin Calcium (Lipitor) 20 mg PO DIN [facility] Last Admin: 05/24/18 18:29 Dose: 20 mg Budesonide (Pulmicort Respules) 0.5 mg IH [id number] SABA Clonazepam (Klonopin) 2 mg PO TID [facility]; Protocol Last Admin: 05/25/18 14:27 Dose: 2 mg Docusate Sodium (Colace) 100 mg PO BID PRN PRN Reason: Constipation Last Admin: 05/25/18 10:13 Dose: 100 mg Famotidine (Pepcid) 20 mg PO 1000,2200 [facility] Last Admin: 05/25/18 10:14 Dose: 20 mg Fluoxetine HCl (Prozac) 40 mg PO BID [facility] Last Admin: 05/25/18 10:13 Dose: 40 mg Gabapentin (Neurontin) 600 mg PO QID [facility]; Protocol Last Admin: 05/25/18 14:27 Dose: 600 mg Levetiracetam (Keppra) 750 mg PO BID [facility] Last Admin: 05/25/18 10:12 Dose: 750 mg Non-Formulary Medication (Clomipramine [Anafranil]) 50 mg PO HS [facility] Last Admin: 05/24/18 22:23 Dose: Not Given Oseltamivir Phosphate (Tamiflu Cap) 75 mg PO BID [facility]; Protocol Stop: 05/28/18 10:23 Last Admin: 05/25/18 10:13 Dose: 75 mg Risperidone (Risperdal Tab) 1 mg PO TID [facility]; Protocol Last Admin: 05/25/18 14:29 Dose: 1 mg Zolpidem Tartrate (Ambien) 5 mg PO HS PRN; Protocol PRN Reason: Insomnia - Labs Labs: 05/25/18 06:40 05/25/18 06:40 PT 13.1 SECONDS (9.4-12.5) H 05/23/18 05:10 INR 1.16 05/23/18 05:10 APTT 28.5 Seconds (26.9-38.3) 05/23/18 05:10 Assessment and Plan - Assessment and Plan (Free Text) Assessment: Pt seen and examined by me. I have reviewed the note of the special forces medical sergeant and I agree with it. I have discussed the assessment and plan with the resident. I have reviewed the medications and the last labs. Pt with Influenza A and is on Tamiflu. Pt is on multiple psych medications. Neruo and psych is following. He is more aware and alert. His R periorbital swelling is improving. Pt had fall. Sz d/o controlled with Keppra. He has OCD and it is stable.
[2018-05-25] MEDS ORDERED: Fluticasone-Salmeterol 250-50mcg Diskus IH SCH (11:45)
[2018-05-25] MEDS: Albuterol-Ipratrop 3 mg / 0.5 (3 ml) UD IH PRN (13:47)
--- NOTE | 2018-05-25 14:36 | CP.PCM.PN ---
Subjective - Date & Time of Evaluation Date of Evaluation: 05/25/18 Time of Evaluation: 11:50 - Subjective Subjective: No fevers, not in distress, feeling a little better. Objective - Vital Signs/Intake and Output Vital Signs (last 24 hours): Temp Pulse Resp BP Pulse Ox 97.5 F L 89 18 117/72 97 05/24/18 06:00 05/24/18 06:00 05/24/18 06:00 05/24/18 06:00 05/24/18 06:00 Intake and Output: 05/24/18 05/24/18 06:59 18:59 Intake Total 500 Output Total 800 Balance -300 - Medications Medications: Current Medications Atorvastatin Calcium (Lipitor) 20 mg PO DIN [facility] Last Admin: 05/23/18 17:19 Dose: 20 mg Clonazepam (Klonopin) 2 mg PO TID [facility]; Protocol Last Admin: 05/24/18 10:47 Dose: 2 mg Docusate Sodium (Colace) 100 mg PO BID PRN PRN Reason: Constipation Last Admin: 05/24/18 10:45 Dose: 100 mg Famotidine (Pepcid) 20 mg PO 1000,2200 [facility] Last Admin: 05/24/18 10:47 Dose: 20 mg Fluoxetine HCl (Prozac) 40 mg PO BID [facility] Last Admin: 05/24/18 10:46 Dose: 40 mg Gabapentin (Neurontin) 600 mg PO QID [facility]; Protocol Last Admin: 05/24/18 10:47 Dose: 600 mg Sodium Chloride (Sodium Chloride 0.9%) 1,000 mls @ 75 mls/hr IV .[id number] [facility] Stop: 05/24/18 11:39 Last Admin: 05/24/18 05:58 Dose: 75 mls/hr Levetiracetam (Keppra) 750 mg PO BID [facility] Last Admin: 05/24/18 10:45 Dose: 750 mg Non-Formulary Medication (Clomipramine [Anafranil]) 50 mg PO HS [facility] Oseltamivir Phosphate (Tamiflu Cap) 75 mg PO BID [facility]; Protocol Stop: 05/28/18 10:23 Last Admin: 05/24/18 10:48 Dose: 75 mg Risperidone (Risperdal Tab) 1 mg PO TID [facility]; Protocol Last Admin: 05/24/18 10:48 Dose: 1 mg - Labs Labs: 05/24/18 07:30 05/24/18 07:30 PT 13.1 SECONDS (9.4-12.5) H 05/23/18 05:10 INR 1.16 05/23/18 05:10 APTT 28.5 Seconds (26.9-38.3) 05/23/18 05:10 - Constitutional Appears: Chronically Ill - Head Exam Head Exam: NORMAL INSPECTION - Respiratory Exam Respiratory Exam: Decreased Breath Sounds - Cardiovascular Exam Cardiovascular Exam: +S1, +S2 - GI/Abdominal Exam GI & Abdominal Exam: Soft. absent: Tenderness Assessment and Plan - Assessment and Plan (Free Text) Plan: Assessment Systemic viral illness with Influenza A infection asymptomatic bacteriuria obsessive-compulsive disorder dyslipidemia sleep apnea GERD seizure disorder BPH obesity with BMI 35 Plan continue Tamiflu day 2 to complete 5 days urine cx showing >100 k gram positive cocci but patient currently does not have symptoms - will continue to monitor off antibiotics and monitor to see if he develops symptoms
[2018-05-25] MEDS ORDERED: CLOMIPRAMINE 50 MG PO SCH ×4 (19:43→22:20)
[2018-05-25] MEDS ORDERED: Budesonide 0.5 mg/2 ml Inhal Susp UD IH SCH (20:00)
[2018-05-25] MEDS ORDERED: Arformoterol 15 mcg/2 ml Inh Sol IH SCH (20:00)
--- NOTE | 2018-05-25 21:35 | CON ---
DATE OF CONSULTATION: 05/25/2018 HISTORY OF PRESENT ILLNESS: In short, the patient is a 58-year-old male with reported history of depression and anxiety, OCD, multiple psychiatric admissions in the past, most recent was on 05/15/2018. The patient was discharged from the psychiatric inpatient unit here in [place]. The patient was admitted on the medical side for fall, influenza pneumonia and weakness. The patient has a history of mental illness and multiple psychotropic medications and that is why medical team called for this inspector automatic typewriter's consultations. The patient very familiar to this inspector automatic typewriter from multiple hospitalizations. The patient presented to be mildly depressed, concerned about his medical issues. MEDICATIONS LIST: Reviewed. The patient was on clomipramine 50 mg daily, Klonopin 2 mg twice a day, Prozac 60 mg daily, gabapentin 600 mg three times a day, Keppra 750 b.i.d., Risperdal 1 mg three times a day and Ambien 5 mg at the nighttime as needed for insomnia. The patient is currently on the right side of the medications. VITAL SIGNS: This inspector automatic typewriter reviewed vital signs, which seem to be within normal limits. Temperature 97.8, pulse 71, blood pressure 115/74, respiration 20, oxygen saturation is 98. MEDICATIONS: As this inspector automatic typewriter described above. Medications were confirmed and reviewed. LABORATORY DATA: Reviewed. Chemistry reviewed. Influenza positive today and in serology. MENTAL STATUS EXAM: The patient presented to be alert, pleasant, cooperative. Fair eye contact. Mood described as okay. Affect was constricted. Thought process concrete. Thought content, the patient denied visual, auditory, or tactile hallucinations. Denied paranoid ideation. The patient denied thoughts of harming himself or others. Denied intent or plan. Insight and judgment seems to be improving. Impulses are well controlled. IMPRESSION: As per history, the patient has a history of bipolar disorder versus major depressive disorder versus schizoaffective disorder. The patient also has severe obsessive-compulsive disorder. PLAN: Continue current management. Continue current medication. Medications were confirmed and resumed. We will follow up on this patient every other day. Should you have any questions, give me a call back. The patient posed no imminent danger to self or others. Thank you very much for letting me participate in the care of your patient. Christi Lovelace MD [facility] # [id number]
[2018-05-26] MEDS: Albuterol-Ipratrop 3 mg / 0.5 (3 ml) UD IH PRN (00:40)
--- NOTE | 2018-05-26 10:22 | CP.PCM.DIS ---
<Keshav Rubin - Last Filed: 05/26/18 10:23> Provider - Provider Date of Admission: 05/23/18 06:58 Attending physician: oJhn Faye MD Primary care physician: Marvin To MD Consults: 05/23/18 08:48 Consult [Physician Consult] Routine Comment: Consulting Provider: Sai Nielsen Consulting Physician: Sai Nielsen Reason for Consult: flu 05/23/18 08:49 Consult [Physician Consult] Routine Comment: Consulting Provider: Christi Lovelace Consulting Physician: Christi Lovelace Reason for Consult: OCD Consult [Physician Consult] Routine Comment: Consulting Provider: Yoan Velasquez Consulting Physician: Yoan Velasquez Reason for Consult: Sz d/o 05/23/18 18:54 Nursing Referral for Wound Care Routine Comment: Physician Instructions: Reason For Exam: EVALUATION 05/23/18 18:58 Social Work Referral Routine Comment: DISCHARGE PLANNING,NEEDS PSYCHE CONSULT. Physician Instructions: Reason For Exam: EVALUATION Time Spent in preparation of Discharge (in minutes): 45 Hospital Course - Lab Results Lab Results: Micro Results 05/23/18 05:35 Blood Blood Culture - Preliminary NO GROWTH AFTER 3 DAYS 05/23/18 05:10 Blood Blood Culture - Preliminary NO GROWTH AFTER 3 DAYS 05/23/18 10:30 Urine Random Urine Culture - Final Enterococcus Faecalis Most Recent Lab Values WBC 5.1 10^3/uL (4.5-11.0) 05/25/18 06:40 RBC 3.97 10^6/uL (3.5-6.1) 05/25/18 06:40 Hgb 11.5 g/dL (14.0-18.0) L 05/25/18 06:40 Hct 35.7 % (42.0-52.0) L 05/25/18 06:40 MCV 89.9 fl (80.0-105.0) 05/25/18 06:40 MCH 29.0 pg (25.0-35.0) 05/25/18 06:40 MCHC 32.2 g/dl (31.0-37.0) 05/25/18 06:40 RDW 14.1 % (11.5-14.5) 05/25/18 06:40 Plt Count 167 10^3/uL (120.0-450.0) 05/25/18 06:40 MPV 9.2 fl (7.0-11.0) 05/25/18 06:40 Neut % (Auto) 82.6 % (50.0-68.0) H 05/23/18 05:10 Lymph % (Auto) 7.9 % (22.0-35.0) L 05/23/18 05:10 Beckham % (Auto) 9.3 % (1.0-6.0) H 05/23/18 05:10 Eos % (Auto) 0.1 % (1.5-5.0) L 05/23/18 05:10 Baso % (Auto) 0.1 % (0.0-3.0) 05/23/18 05:10 Lymph # (Auto) 0.5 (1.2-3.4) L 05/23/18 05:10 Beckham # (Auto) 0.6 (0.1-0.6) 05/23/18 05:10 Eos # (Auto) 0.0 (0.0-0.7) 05/23/18 05:10 Baso # (Auto) 0.01 K/mm3 (0.0-2.0) 05/23/18 05:10 Absolute Neuts (auto) 5.57 (1.4-6.5) 05/23/18 05:10 PT 13.1 SECONDS (9.4-12.5) H 05/23/18 05:10 INR 1.16 05/23/18 05:10 APTT 28.5 Seconds (26.9-38.3) 05/23/18 05:10 pO2 40 mm/Hg (30-55) 05/23/18 05:10 VBG pH 7.39 (7.32-7.43) 05/23/18 05:10 VBG pCO2 47.0 (40-60) 05/23/18 05:10 VBG HCO3 28.5 mmol/l (21-28) H 05/23/18 05:10 VBG Total CO2 29.9 mmol.L (22-28) H 05/23/18 05:10 VBG O2 Sat (Calc) 77.1 % (40-65) H 05/23/18 05:10 VBG Base Excess 2.8 mmol/L (0.0-2.0) H 05/23/18 05:10 VBG Potassium 4.0 mmol/L (3.6-5.2) 05/23/18 05:10 Sodium 135.0 mmol/L (132-148) 05/23/18 05:10 Chloride 99.0 mmol/L (98-107) 05/23/18 05:10 Glucose 138 mg/dl (75-110) H 05/23/18 05:10 Lactate 1.8 mmol/L (0.7-2.1) 05/23/18 05:10 FiO2 21.0 % 05/23/18 05:10 Sodium 137 mmol/L (132-148) 05/25/18 06:40 Potassium 3.6 mmol/L (3.6-5.0) 05/25/18 06:40 Chloride 104 mmol/L (98-107) 05/25/18 06:40 Carbon Dioxide 27 mmol/L (21-33) 05/25/18 06:40 Anion Gap 10 (10-20) 05/25/18 06:40 BUN 13 mg/dL (7-21) 05/25/18 06:40 Creatinine 0.8 mg/dl (0.8-1.5) 05/25/18 06:40 Est GFR ( Amer) > 60 05/25/18 06:40 Est GFR (Non-Af Amer) > 60 05/25/18 06:40 Random Glucose 99 mg/dL (70-110) 05/25/18 06:40 Calcium 8.4 mg/dL (8.4-10.5) 05/25/18 06:40 Magnesium 2.0 mg/dL (1.7-2.2) 05/23/18 05:10 Total Bilirubin 0.9 mg/dL (0.2-1.3) 05/25/18 06:40 AST 237 U/L (17-59) H 05/25/18 06:40 ALT 50 U/L (7-56) 05/25/18 06:40 Alkaline Phosphatase 77 U/L (38-126) 05/25/18 06:40 Lactate Dehydrogenase 748 U/L (333-699) H 05/23/18 05:10 Total Creatine Kinase 1198 U/L (35-230) H 05/23/18 05:10 CK-MB (CK-2) 2.1 ng/mL (0.0-3.6) 05/23/18 05:10 CK-MB (CK-2) % Cancelled 05/23/18 05:10 Troponin I < 0.01 ng/mL 05/23/18 05:10 Total Protein 7.3 g/dL (5.8-8.3) 05/25/18 06:40 Albumin 3.8 g/dL (3.0-4.8) 05/25/18 06:40 Globulin 3.5 gm/dL 05/25/18 06:40 Albumin/Globulin Ratio 1.1 (1.1-1.8) 05/25/18 06:40 Venous Blood Potassium 4.0 mmol/L (3.6-5.2) 05/23/18 05:10 Urine Color Yellow (YELLOW) 05/23/18 10:30 Urine Appearance Slight-cloudy (CLEAR) 05/23/18 10:30 Urine pH 6.0 (4.7-8.0) 05/23/18 10:30 Ur Specific Avant 1.025 (1.005-1.035) 05/23/18 10:30 Urine Protein 30 mg/dL (<30 mg/dL) H 05/23/18 10:30 Urine Glucose (UA) Negative mg/dL (NEGATIVE) 05/23/18 10:30 Urine Ketones 15 mg/dL (NEGATIVE) H 05/23/18 10:30 Urine Blood Large (NEGATIVE) H 05/23/18 10:30 Urine Nitrate Negative (NEGATIVE) 05/23/18 10:30 Urine Bilirubin Negative (NEGATIVE) 05/23/18 10:30 Urine Urobilinogen 1.0 E.U./dL (<1 E.U./dL) H 05/23/18 10:30 Ur Leukocyte Esterase Moderate Sha/uL (NEGATIVE) H 05/23/18 10:30 Urine RBC 25 - 30 /hpf (0-2) H 05/23/18 10:30 Urine WBC 20 - 25 /hpf (0-6) H 05/23/18 10:30 Ur Epithelial Cells 0 - 2 /hpf (0-5) 05/23/18 10:30 Amorphous Sediment Few /hpf (NONE) 05/23/18 10:30 Urine Bacteria Large /hpf (NONE) 05/23/18 10:30 Urine Other Uyeast /hpf 05/23/18 10:30 Influenza Typ A,B (EIA) Pos for influenza a (NEGATIVE) H 05/23/18 05:10 - Hospital Course Hospital Course: 58 year old male with PMH of OCD, dyslipidemia, sleep apnea, GERD, seizure disorder, BPH, obesity with BMI 35 Initially presented to the emergency department with fall. Patient was also noted to have been feeling ill including body aches, cough fever of 102. In the ED basic lab work was performed. For his fall CT of the head and cervical spine were negative for any acute findings. Patient also had a CT of maxillofacial was also negative for any acute findings. Patient also had a forearm x-ray, humerus x-ray, knee x-ray, pelvic x-ray, shoulder x-ray were mainly negative for any acute fractures. Patient was admitted for treatment of his fall and influenza. Infectious disease was consulted and patient was placed on Tamiflu. Psychiatry was consulted for the recommendation, and recommended to continue patient's current medication regimen. Patient's clinical symptoms improved within the next 3 days. Today the patient states that he is feeling better and that his fever and body aches have much improved. Patient states that he has all his medications at home. Prescription for remaining 2 days of Tamiflu will be given to the patient. Systemic viral illness - Influenza A infection dyslipidemia GERD seizure disorder BPH obesity with BMI 35 obsessive-compulsive disorder Discharge Exam - Head Exam Head Exam: NORMAL INSPECTION - Eye Exam Eye Exam: EOMI, PERRL - Respiratory Exam Respiratory Exam: Clear to PA & Lateral. absent: Rales, Rhonchi, Wheezes - Cardiovascular Exam Cardiovascular Exam: REGULAR RHYTHM, RRR, +S1, +S2 - GI/Abdominal Exam GI & Abdominal Exam: Normal Bowel Sounds, Soft. absent: Distended, Guarding, Tenderness - Neurological Exam Neurological exam: Alert, Oriented x3 - Psychiatric Exam Psychiatric exam: Normal Mood - Skin Skin Exam: Dry, Warm Discharge Plan - Discharge Medications Prescriptions: RX: Oseltamivir Cap [Tamiflu Cap] 75 mg PO BID 2 Days #4 capsule - Follow Up Plan Condition: FAIR Disposition: HOME/ ROUTINE Instructions: Preventing Falls in the Older Adult, Flu, Adult (DC), Pneumococcal Polysaccharide Vaccine (23-Valent), Flu Vaccine Additional Instructions: If your symptoms recur come back to the ED Follow-up with your PMD within 3 days Follow-up psychiatry within the next 1 week Take your medications including Tamiflu for 2 more days twice daily Avoid crowded areas and basic hygiene including covering your mouth while coughing Can wear a mask to cover your mouth when in close contact with others Referrals: Marvin To MD [Primary Care Provider] - <John Faye - Last Filed: 05/26/18 17:58> Provider - Provider Date of Admission: 05/23/18 06:58 Attending physician: John Faye MD Primary care physician: Marvin To MD Consults: 05/23/18 08:48 Consult [Physician Consult] Routine Comment: Consulting Provider: Sai Nielsen Consulting Physician: Sai Nielsen Reason for Consult: flu 05/23/18 08:49 Consult [Physician Consult] Routine Comment: Consulting Provider: Christi Lovelace Consulting Physician: Christi Lovelace Reason for Consult: OCD Consult [Physician Consult] Routine Comment: Consulting Provider: Yoan Velasquez Consulting Physician: Yoan Velasquez Reason for Consult: Sz d/o 05/23/18 18:54 Nursing Referral for Wound Care Routine Comment: Physician Instructions: Reason For Exam: EVALUATION 05/23/18 18:58 Social Work Referral Routine Comment: DISCHARGE PLANNING,NEEDS PSYCHE CONSULT. Physician Instructions: Reason For Exam: EVALUATION Hospital Course - Lab Results Lab Results: Micro Results 05/23/18 05:35 Blood Blood Culture - Preliminary NO GROWTH AFTER 3 DAYS 05/23/18 05:10 Blood Blood Culture - Preliminary NO GROWTH AFTER 3 DAYS 05/23/18 10:30 Urine Random Urine Culture - Final Enterococcus Faecalis Most Recent Lab Values WBC 5.1 10^3/uL (4.5-11.0) 05/25/18 06:40 RBC 3.97 10^6/uL (3.5-6.1) 05/25/18 06:40 Hgb 11.5 g/dL (14.0-18.0) L 05/25/18 06:40 Hct 35.7 % (42.0-52.0) L 05/25/18 06:40 MCV 89.9 fl (80.0-105.0) 05/25/18 06:40 MCH 29.0 pg (25.0-35.0) 05/25/18 06:40 MCHC 32.2 g/dl (31.0-37.0) 05/25/18 06:40 RDW 14.1 % (11.5-14.5) 05/25/18 06:40 Plt Count 167 10^3/uL (120.0-450.0) 05/25/18 06:40 MPV 9.2 fl (7.0-11.0) 05/25/18 06:40 Neut % (Auto) 82.6 % (50.0-68.0) H 05/23/18 05:10 Lymph % (Auto) 7.9 % (22.0-35.0) L 05/23/18 05:10 Beckham % (Auto) 9.3 % (1.0-6.0) H 05/23/18 05:10 Eos % (Auto) 0.1 % (1.5-5.0) L 05/23/18 05:10 Baso % (Auto) 0.1 % (0.0-3.0) 05/23/18 05:10 Lymph # (Auto) 0.5 (1.2-3.4) L 05/23/18 05:10 Beckham # (Auto) 0.6 (0.1-0.6) 05/23/18 05:10 Eos # (Auto) 0.0 (0.0-0.7) 05/23/18 05:10 Baso # (Auto) 0.01 K/mm3 (0.0-2.0) 05/23/18 05:10 Absolute Neuts (auto) 5.57 (1.4-6.5) 05/23/18 05:10 PT 13.1 SECONDS (9.4-12.5) H 05/23/18 05:10 INR 1.16 05/23/18 05:10 APTT 28.5 Seconds (26.9-38.3) 05/23/18 05:10 pO2 40 mm/Hg (30-55) 05/23/18 05:10 VBG pH 7.39 (7.32-7.43) 05/23/18 05:10 VBG pCO2 47.0 (40-60) 05/23/18 05:10 VBG HCO3 28.5 mmol/l (21-28) H 05/23/18 05:10 VBG Total CO2 29.9 mmol.L (22-28) H 05/23/18 05:10 VBG O2 Sat (Calc) 77.1 % (40-65) H 05/23/18 05:10 VBG Base Excess 2.8 mmol/L (0.0-2.0) H 05/23/18 05:10 VBG Potassium 4.0 mmol/L (3.6-5.2) 05/23/18 05:10 Sodium 135.0 mmol/L (132-148) 05/23/18 05:10 Chloride 99.0 mmol/L (98-107) 05/23/18 05:10 Glucose 138 mg/dl (75-110) H 05/23/18 05:10 Lactate 1.8 mmol/L (0.7-2.1) 05/23/18 05:10 FiO2 21.0 % 05/23/18 05:10 Sodium 137 mmol/L (132-148) 05/25/18 06:40 Potassium 3.6 mmol/L (3.6-5.0) 05/25/18 06:40 Chloride 104 mmol/L (98-107) 05/25/18 06:40 Carbon Dioxide 27 mmol/L (21-33) 05/25/18 06:40 Anion Gap 10 (10-20) 05/25/18 06:40 BUN 13 mg/dL (7-21) 05/25/18 06:40 Creatinine 0.8 mg/dl (0.8-1.5) 05/25/18 06:40 Est GFR ( Amer) > 60 05/25/18 06:40 Est GFR (Non-Af Amer) > 60 05/25/18 06:40 Random Glucose 99 mg/dL (70-110) 05/25/18 06:40 Calcium 8.4 mg/dL (8.4-10.5) 05/25/18 06:40 Magnesium 2.0 mg/dL (1.7-2.2) 05/23/18 05:10 Total Bilirubin 0.9 mg/dL (0.2-1.3) 05/25/18 06:40 AST 237 U/L (17-59) H 05/25/18 06:40 ALT 50 U/L (7-56) 05/25/18 06:40 Alkaline Phosphatase 77 U/L (38-126) 05/25/18 06:40 Lactate Dehydrogenase 748 U/L (333-699) H 05/23/18 05:10 Total Creatine Kinase 1198 U/L (35-230) H 05/23/18 05:10 CK-MB (CK-2) 2.1 ng/mL (0.0-3.6) 05/23/18 05:10 CK-MB (CK-2) % Cancelled 05/23/18 05:10 Troponin I < 0.01 ng/mL 05/23/18 05:10 Total Protein 7.3 g/dL (5.8-8.3) 05/25/18 06:40 Albumin 3.8 g/dL (3.0-4.8) 05/25/18 06:40 Globulin 3.5 gm/dL 05/25/18 06:40 Albumin/Globulin Ratio 1.1 (1.1-1.8) 05/25/18 06:40 Venous Blood Potassium 4.0 mmol/L (3.6-5.2) 05/23/18 05:10 Urine Color Yellow (YELLOW) 05/23/18 10:30 Urine Appearance Slight-cloudy (CLEAR) 05/23/18 10:30 Urine pH 6.0 (4.7-8.0) 05/23/18 10:30 Ur Specific Avant 1.025 (1.005-1.035) 05/23/18 10:30 Urine Protein 30 mg/dL (<30 mg/dL) H 05/23/18 10:30 Urine Glucose (UA) Negative mg/dL (NEGATIVE) 05/23/18 10:30 Urine Ketones 15 mg/dL (NEGATIVE) H 05/23/18 10:30 Urine Blood Large (NEGATIVE) H 05/23/18 10:30 Urine Nitrate Negative (NEGATIVE) 05/23/18 10:30 Urine Bilirubin Negative (NEGATIVE) 05/23/18 10:30 Urine Urobilinogen 1.0 E.U./dL (<1 E.U./dL) H 05/23/18 10:30 Ur Leukocyte Esterase Moderate Sha/uL (NEGATIVE) H 05/23/18 10:30 Urine RBC 25 - 30 /hpf (0-2) H 05/23/18 10:30 Urine WBC 20 - 25 /hpf (0-6) H 05/23/18 10:30 Ur Epithelial Cells 0 - 2 /hpf (0-5) 05/23/18 10:30 Amorphous Sediment Few /hpf (NONE) 05/23/18 10:30 Urine Bacteria Large /hpf (NONE) 05/23/18 10:30 Urine Other Uyeast /hpf 05/23/18 10:30 Influenza Typ A,B (EIA) Pos for influenza a (NEGATIVE) H 05/23/18 05:10 - Hospital Course Hospital Course: Pt seen and examined by me. I have reviewed the note of the medical director/head team physician and I agree with it. I have discussed the assessment and plan with the resident. I have reviewed the medications and the last labs. Pt with Influenza infection. Pt with Dyslipidemia. He is feeling better. He had multiple xrays and did not have any fractures. Sz d/o and no signs of breakthrough Sz. He has OCD and is stable. No fevers.
--- NOTE | 2018-05-26 14:31 | CP.PCM.PN ---
Subjective - Date & Time of Evaluation Date of Evaluation: 05/26/18 Time of Evaluation: 11:35 - Subjective Subjective: No fevers, not in distress. Objective - Vital Signs/Intake and Output Vital Signs (last 24 hours): Temp Pulse Resp BP Pulse Ox 97.5 F L 90 18 107/65 96 05/25/18 06:00 05/25/18 06:00 05/25/18 06:00 05/25/18 06:00 05/25/18 06:00 - Medications Medications: Current Medications Albuterol/Ipratropium (Duoneb 3 Mg/0.5 Mg (3 Ml) Ud) 3 ml IH [id number] PRN PRN Reason: Shortness of Breath Last Admin: 05/25/18 13:47 Dose: 3 ml Arformoterol Tartrate (Brovana) 15 mcg IH [id number] [facility] Atorvastatin Calcium (Lipitor) 20 mg PO DIN [facility] Last Admin: 05/24/18 18:29 Dose: 20 mg Budesonide (Pulmicort Respules) 0.5 mg IH [id number] [facility] Clonazepam (Klonopin) 2 mg PO TID [facility]; Protocol Last Admin: 05/25/18 14:27 Dose: 2 mg Docusate Sodium (Colace) 100 mg PO BID PRN PRN Reason: Constipation Last Admin: 05/25/18 10:13 Dose: 100 mg Famotidine (Pepcid) 20 mg PO 1000,2200 [facility] Last Admin: 05/25/18 10:14 Dose: 20 mg Fluoxetine HCl (Prozac) 40 mg PO BID [facility] Last Admin: 05/25/18 10:13 Dose: 40 mg Gabapentin (Neurontin) 600 mg PO QID [facility]; Protocol Last Admin: 05/25/18 14:27 Dose: 600 mg Levetiracetam (Keppra) 750 mg PO BID [facility] Last Admin: 05/25/18 10:12 Dose: 750 mg Non-Formulary Medication (Clomipramine [Anafranil]) 50 mg PO HS [facility] Last Admin: 05/24/18 22:23 Dose: Not Given Oseltamivir Phosphate (Tamiflu Cap) 75 mg PO BID [facility]; Protocol Stop: 05/28/18 10:23 Last Admin: 05/25/18 10:13 Dose: 75 mg Risperidone (Risperdal Tab) 1 mg PO TID [facility]; Protocol Last Admin: 05/25/18 14:29 Dose: 1 mg Zolpidem Tartrate (Ambien) 5 mg PO HS PRN; Protocol PRN Reason: Insomnia - Labs Labs: 05/25/18 06:40 05/25/18 06:40 PT 13.1 SECONDS (9.4-12.5) H 05/23/18 05:10 INR 1.16 05/23/18 05:10 APTT 28.5 Seconds (26.9-38.3) 05/23/18 05:10 - Constitutional Appears: Chronically Ill - Head Exam Head Exam: NORMAL INSPECTION - Respiratory Exam Respiratory Exam: Decreased Breath Sounds - Cardiovascular Exam Cardiovascular Exam: +S1, +S2 - GI/Abdominal Exam GI & Abdominal Exam: Soft. absent: Tenderness Assessment and Plan - Assessment and Plan (Free Text) Plan: Assessment Systemic viral illness with Influenza A infection asymptomatic bacteriuria obsessive-compulsive disorder dyslipidemia sleep apnea GERD seizure disorder BPH obesity with BMI 35 Plan continue Tamiflu day 3 to complete 5 days urine cx showing >100 k gram positive cocci but patient currently does not have symptoms - will continue to monitor off antibiotics and monitor to see if he develops symptoms
[2018-05-26 15:16] VITALS: BP 121/80; PULSE 91; RESP 20; TEMP 98; O2SAT 96
--- NOTE | 2018-05-26 18:08 | PN ---
DATE: 05/26/2018 SUBJECTIVE: The patient was seen today. The patient reported that he feels better. The patient denied feeling depressed. Denied any thoughts of harming himself or others. The patient feels that he is ready to go back home. The patient reported that he has followup appointment with Dr. Priyank Damon. MEDICATIONS: Reviewed. The patient said that he tolerates medications well. Denied any side effects. OBJECTIVE: VITAL SIGNS: Stable. LABORATORY DATA: Reviewed. MENTAL STATUS EXAM: The patient appears to be alert and oriented, pleasant, cooperative. Fair eye contact. Speech was somewhat underproductive. Mood described. I am feeling fine. Affect was constricted but reactive, mood congruent. Thought process seems to be coherent and goal directed. Thought content, the patient denied visual, auditory, tactile hallucinations. Denied paranoid ideation. The patient denied thoughts of harming himself or others. Denied intent or plan. Insight and judgment seems to be fair. Impulses are well controlled. IMPRESSION: As per history, major depressive disorder, severe obsessive compulsive disorder, which seems to be under control. PLAN: The patient should continue all of the medications. The patient has scheduled followup appointment with Dr. Priyank Damon. The patient posed no imminent danger to self or others. This travel writer will sign off. Should you have any questions give me a call back. Christi Lovelace MD
--- NOTE | 2018-05-27 17:07 | PQF ---
PROVIDER RESPONSE TEXT: No UTI. Enterococcus not clinically significant. No symptoms. REVIEWER QUERY TEXT: Conflicting Documentation Clarification A single mention or documentation of multiple diagnoses for the same clinical presentation appears in the record. Please clarify the diagnosis/diagnoses. Please also document if the condition is: -- Confirmed and current -- Confirmed, treated and resolved -- Ruled out -- Other, please specify The patient's Clinical Indicators include: ER documented urinary tract infection VS. asymptomatic bacteriuria by infectious MD urine culture positive for enterococcus faecalis on 05/23 Query created by: Heidi Cardona on 05/27/2018 7:37 AM Electronically signed by: John Faye MD 05/27/2018 5:04 PM
== END 2018-05-26 17:06 | disposition home or self-care (01) | DRG 195 ==
LOC: ED 04:42 → ERH 06:58 → 5RNO 11:41
PROVIDERS: ADMIT Internal Medicine Nephrology; ATTEND Internal Medicine Nephrology
DX: J10.00 Influenza due to other identified influenza virus with unspecified type of pneumonia (principal); R82.71 Bacteriuria; N40.0 Benign prostatic hyperplasia without lower urinary tract symptoms; G40.909 Epilepsy, unspecified, not intractable, without status epilepticus; F42.9 Obsessive-compulsive disorder, unspecified; K21.9 Gastro-esophageal reflux disease without esophagitis; F32.9 Major depressive disorder, single episode, unspecified; E78.5 Hyperlipidemia, unspecified; F41.9 Anxiety disorder, unspecified; G62.9 Polyneuropathy, unspecified; K29.70 Gastritis, unspecified, without bleeding; M47.9 Spondylosis, unspecified; J45.909 Unspecified asthma, uncomplicated; G47.30 Sleep apnea, unspecified; Z96.659 Presence of unspecified artificial knee joint; E66.9 Obesity, unspecified; Z68.35 Body mass index [BMI] 35.0-35.9, adult; Z88.0 Allergy status to penicillin

== ENCOUNTER 2018-06-02 15:44 | Outpatient (CLI) | payer MEDICARE, OTHER | END 2018-06-02 15:45 | disposition home or self-care (01) | LOC: RAD 15:44 ==